=== PATIENT | female | born 1955 | race Caucasian/White ===

== ENCOUNTER 2017-01-30 13:29 | Inpatient (IN) | payer MEDICARE ==
[2017-01-30] VITALS (11 sets, daily range): BP systolic 105–161; BP diastolic 59–96; PULSE 94–105; RESP 13–19; O2SAT 93–99
[~2017-01-30] VITALS: Ht 167.6 cm; Wt 103.8 kg
[~2017-01-30 13:29] MED LIST: OXYC5TAB72 PO
[2017-01-30 13:51] LABS: EOSINOPHILS % (AUTO) 1.7 % (0-5); MONOCYTES % (AUTO) 8.4 % (4-12); Mean Corpuscular Hemoglobin 31.1 pg (27.0-35.0); Mean Corpuscular Volume 93.9 fL (81-100); NEUTROPHILS % (AUTO) 62.6 % (40-74); Platelet Count 255 bil/L (150-400)
--- NOTE | 2017-01-30 13:58 | ED.REPORT ---
HPI-Chest Pain 40 and Over Date of Service Jan 30, 2017 ED Provider: A 61 year old female with a history of non hodgkin's lymphoma, a Rudy filter, multiple PE, bright chronic DVT, coronary artery disease, diabetes, and hyperthyroidism, presents to the ED complaining of SOB and feelings of heaviness onset a couple of days ago, and more severely today at 0600. Associated symptoms include swelling in feet and ankles, and a minor cough onset this morning. She has been off of her prescribed medications for one month , normally having medications for restless legs, chronic pain, high cholesterol , depression, CHF, diabetes, HTN and hyper and low thyroid. She explains that she stopped taking her medications because they caused nausea, and because her insurance changed and she would need to change doctors in order to get her medications. 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 She denies any chills, fever, diaphoresis, or nausea. She lives with her son and granddaughter. Nursing Notes Stated Complaint: CHEST PAIN Chief Complaint: Chest Pain Nursing Notes Reviewed: Yes Allergies: Coded Allergies: terfenadine (Verified Allergy, Mild, 01/30/17) Cephalosporins (Verified Allergy, Unknown, 1st generation, 01/30/17) Penicillins (Verified Allergy, Unknown, 01/30/17) Sulfa (Sulfonamide Antibiotics) (Verified Allergy, Unknown, 01/30/17) erythromycin base (Verified Allergy, Unknown, 01/30/17) ferrous sulfate (Verified Allergy, Unknown, 01/30/17) gabapentin (Verified Allergy, Unknown, 01/30/17) hydrocodone (Verified Allergy, Unknown, 01/30/17) loracarbef (Verified Allergy, Unknown, 01/30/17) loratadine (Verified Allergy, Unknown, 01/30/17) meperidine (Verified Allergy, Unknown, 01/30/17) salsalate (Verified Allergy, Unknown, 01/30/17) shellfish derived (Verified Allergy, Unknown, 01/30/17) Uncoded Allergies: ANTIDEPRESSANTS (Allergy, Unknown, unsure which, 04/09/16) Scheduled PRN oxyCODONE (oxyCODONE) 5 Mg Tablet 10 MG PO Q4H PRN PRN For Pain General Time Seen by MD: 13:58 Chief Complaint Shortness of breath Hx Obtained From: Patient, EMS Arrived By: Ambulance Sudden in Onset?: No Onset Occurred: 9 - 12 hours ago Symptom Duration: Since onset Severity: Current: Moderate Severity: Maximum: Moderate Recent Healthcare: No recent doctor visit Similar Sx Previous: No Past Medical History Past Medical History Dr. Mosqueda is her doctor [phone] non hodgkin's lymphoma multiple PE. coroanry artery disease. 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 Reports: Appendectomy, Cholecystectomy Smoking History Never Smoker Social History Lives with son. Alcohol Use: Denies alcohol use Drug Use: Denies drug use Other Social History: Good social support Ambulatory Status Independent Review of Systems Review of Systems Note: Feelings of heaviness. Sweeling in feet and ankles. Constitutional: Denies: Chills, Fever Respiratory: Reports: Non-productive cough, Shortness of breath GI: Denies: Nausea Skin: Denies Diaphoresis Complete sys rev & neg: except as marked. Physical Exam Initial Vital Signs Vital Signs (First) Date Time Temp Pulse Resp B/P Pulse Ox O2 Delivery O2 Flow Rate FiO2 01/30/17 13:30 102 13 135/72 99 Room Air 01/30/17 13:45 36.6 Initial VS: Reviewed General/Constitutional: Awake, Alert Respiratory / Chest: Atraumatic, Breath sounds NL, Breath sounds = bilat, No respiratory distress, No rales, No rhonchi Cardiovascular: No murmurs Heart Rate / Rhythm: Positive: Tachycardia Abdomen: Atraumatic, Soft, No guarding, No rebound abdomen is benign. Neck: Atraumatic, Full range of motion Back: Atraumatic, Full range of motion Right leg is a little more swollen than left. Skin: Warm, Dry Neurologic: Oriented X3, Speech NL Head / Eyes: Atraumatic, Normocephalic, PERRL, EOMI ENT: Atraumatic, Mucous membranes moist Upper Extremity / MS: Atraumatic, Full range of motion Wrist / Hand: Atraumatic, Full range of motion Interpretation & Diagnostics Lab Results Interpretation Result Diagram: 01/30/17 1347 01/30/17 1347 Test 01/30/17 13:47 White Blood Count 8.2th/mm3 (3.8-10.1) Red Blood Count 3.96mil/mm3 (3.90-5.20) Hemoglobin 12.3g/dL (12.0-15.6) Hematocrit 37.2% (35.0-46.0) Mean Corpuscular Volume 93.9fL (81-100) Mean Corpuscular Hemoglobin 31.1pg (27.0-35.0) Mean Corpuscular Hemoglobin Concent 33.1% (32.0-37.0) Red Cell Distribution Width 13.1% (12.3-15.4) Platelet Count 255bil/L (150-400) Neutrophils (%) (Auto) 62.6% (40-74) Lymphocytes (%) (Auto) 25.7% (14-46) Monocytes (%) (Auto) 8.4% (4-12) Eosinophils (%) (Auto) 1.7% (0-5) Basophils (%) (Auto) 1.0% (0-3) D-Dimer 1.1mg/L (<0.50) Sodium Level 135mEq/L (134-144) Potassium Level 4.3mEq/L (3.5-5.2) Chloride Level 94mEq/L (97-108) Carbon Dioxide Level 21mmol/L (18-29) Blood Urea Nitrogen 26mg/dL (8-27) Creatinine 1.13mg/dL (0.57-1.00) Estimat Glomerular Filtration Rate 70mL/min (>59) Glucose Level 370mg/dL (60-99) Calcium Level 9.9mg/dL (8.5-10.1) Magnesium Level 1.4mg/dL (1.6-2.6) Total Bilirubin 0.3mg/dL (0.0-1.2) Aspartate Amino Transf (AST/SGOT) 14U/L (0-50) Alanine Aminotransferase (ALT/SGPT) 13U/L (0-32) Alkaline Phosphatase 61U/L (25-165) Troponin T < 0.010ug/L (0.0-0.011) Total Protein 7.2g/dL (6.4-8.4) Albumin 4.5g/dL (3.4-5.0) Re-Eval/Medical Decision Med Decision/Clinical Course Patient presented to urgent care with her granddaughter who has an ear infection briefly mention that she was having some chest pressure and was further evaluated. Turns out that she is switching insurance from [employer] to [employer]. We will need to find a new physician. Call to establish care and next appointment is in May. Her medications are making her nauseated and she is not sure which one so she has stopped all of them. At this point she is feeling scared and abandoned by the medical system. More than willing to restart medications we talked about prioritizing in figuring out which ones to add back and in which order. Complicated cardiac history with chemotherapy-induced cardiomyopathy and valvular disease. Records obtained from [facility] cardiology group and will be reviewed. Workup started. In the emergency department began having more chest pain secondary EKG was ordered nitroglycerin ordered. Patient is discussed and reviewed with Dr. Casey. Care will be transferred. Anticipate admission for chest pain, cardiomyopathy likely heart failure acute exacerbation and assistance in restarting medications and getting back into primary care. Time of Eval: 14:55 Patient Status: Condition worsened Re-Evaluation/Progress Note: CP Reapeat EKG and try SL nitro Discharge & Departure Shift Change Sign-Out Patient Care Transferred: Yes Discussed Complaint(s): Yes Laboratory Evaluation: Ordered, not yet done Imaging Studies: Ordered, not yet done ongoing chest pain at time of transfer of care. Primary Impression: Chest pain Referrals: Tracey Burr MD (PCP) Care Transferred to: Dr. Casey Care Transferred at: 15:00 Chris Attestation Portions of this note were transcribed by Liborio Elizalde. I, Dr. Garibay, personally performed the history, physical exam, and medical decision-making: I reviewed and confirmed the accuracy for the information in the transcribed note. Signed by: chris Lee, 01/30/17 [id number]. copies to: Tracey Burr MD, Shawna L MD Jan 30, 2017 13:58 Liborio Elizalde Jan 30, 2017 14:09
[2017-01-30 14:22] LABS: TROPONIN T < 0.010 ug/L (0.0-0.011)
[2017-01-30 14:32] LABS: Magnesium 1.4 mg/dL (1.6-2.6)
[2017-01-30] MEDS ORDERED: Magnesium Sulf 2 Gm/50mL Water 2 GM in IV Premix 1 EACH IV ONE (15:15)
--- NOTE | 2017-01-30 15:22 | ED.REPORT ---
HPI-Chest Pain 40 and Over Date of Service Jan 30, 2017 ED Provider: Kyle Casey MD A 61 year old female with an extensive medical history including RLE DVT, CVA, Non-Hodgkin's lymphoma, CHF, hyperlipidemia, diabetes, hypothyroidism, atrial fibrillation, and PE s/p IVC filter placement presents to the ED from Urgent Care with substernal chest pain onset two days ago, worsening at 0600 this morning. The pain is currently rated 5/10 and described as "heaviness," with radiation to her left side. Associated symptoms include shortness of breath, headache, and bilateral leg swelling (R>L), which is baseline. At Urgent Care the patient was given ASA with no relief. The patient also reports recent weight gain after stopping all of her her medications 3-4 months ago, which she did because they reportedly "made her nauseous." She denies nausea or other symptoms today. The patient was previously on anticoagulants. 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 taking home meds x~3 months due to nausea) Allergies: Coded Allergies: terfenadine (Verified Allergy, Mild, 01/30/17) Cephalosporins (Verified Allergy, Unknown, 1st generation, 01/30/17) Penicillins (Verified Allergy, Unknown, 01/30/17) Sulfa (Sulfonamide Antibiotics) (Verified Allergy, Unknown, 01/30/17) erythromycin base (Verified Allergy, Unknown, 01/30/17) ferrous sulfate (Verified Allergy, Unknown, 01/30/17) gabapentin (Verified Allergy, Unknown, 01/30/17) hydrocodone (Verified Allergy, Unknown, 01/30/17) loracarbef (Verified Allergy, Unknown, 01/30/17) loratadine (Verified Allergy, Unknown, 01/30/17) meperidine (Verified Allergy, Unknown, 01/30/17) salsalate (Verified Allergy, Unknown, 01/30/17) shellfish derived (Verified Allergy, Unknown, 01/30/17) Uncoded Allergies: ANTIDEPRESSANTS (Allergy, Unknown, unsure which, 04/09/16) Scheduled Atorvastatin (Lipitor) 40 Mg Tablet 40 MG PO HS Citalopram (Citalopram) 40 Mg Tablet 40 MG PO DAILY Furosemide (Furosemide) 40 Mg Tablet 40 MG PO QAM Levothyroxine (Levothyroxine) 300 Mcg Tablet 325 MCG PO QAM TAKE 300 MCG TABLET + 25 MCG TABLET (=325 MCG) Lisinopril (Lisinopril) 5 Mg Tablet 5 MG PO DAILY Metformin (Glucophage) 1,000 Mg Tablet 1,000 MG PO BIDWM Metoprolol Succinate ER (Metoprolol Succinate ER) 25 Mg Tab.er.24h 25 MG PO DAILY Potassium Chloride (Potassium Chloride) 10 Meq Capsule.er 10 MEQ PO DAILYWM TAKE WITH FOOD Scheduled PRN Ropinirole (Ropinirole) 0.25 Mg Tablet 0.5 MG PO HS PRN PRN RESTLESS LEG oxyCODONE (oxyCODONE) 5 Mg Tablet 5 MG PO TID PRN PRN For Pain General Time Seen by MD: 14:56 Chief Complaint Chest pain Hx Obtained From: Patient Arrived By: Walk-in Sudden in Onset?: Yes Onset Occurred: 2 days ago (Worsening 0600 this morning) Symptom Duration: Since onset Location: : Substernal Quality: Heaviness, Painful Radiation: : Arm left: Shoulder left Severity: Current: Pain level 5 out of 10 Severity: Maximum: Pain level 5 out of 10 Associated with: Reports: Shortness of Breath, Denies: Fever, Nausea Pertinent Negative: Relieved by nothing Context Related History: Reports: Arrhythmia, Congestive heart failure, Diabetes mellitus, Pulmonary embolism Recent Healthcare: No recent doctor visit Past Medical History Past Medical History Notes: 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 [facility] Echo April 2014, atrial fibrillation, EF of 28%, global hypokinesis with paradoxical septal motion, severe left atrial dilation, status post mitral valve repair, mild to moderate tricuspid regurg-at that time echo had improved EF from 15% Past Medical History ho of RLE DVT and prior pulmonary embolus, details unclear-patient status post an IVC filter as occurred while under treatment for Hodgkin's lymphoma, had been on anticoagulation therapy, but reports quite ectopic workup was negative, and anticoagulation discontinued Non-Hodgkin's lymphoma, subsequent cardiomyopathy History of postoperative atrial fibrillation March 2014, she was prescribed warfarin at last cardiology visit that I can obtain records from which is September 2014 History of acute systolic CHF, diagnosed in 2013 a slight history of severe mitral regurgitation status post valvular repair, ASD with repair Hyperlipidemia 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 Type II diabetes History of hypothyroidism GERD History of gastroparesis diagnosed in 2014 History of vertigo initially history CVA with right-sided symptoms, resolved Reports: Diabetes mellitus, Hyperlipidemia, Hypertension Past Surgical History Mitral valve repair March 2014, with an Calderón Renay annuloplasty band Repair patent foramen ovale March 2014 Hernia repair Left knee replacement oophorectomy Cardiac cath February 2014, no significant coronary disease Reports: Appendectomy, Cholecystectomy Smoking History Never Smoker Social History Alcohol Use: Denies alcohol use Drug Use: Denies drug use Ambulatory Status Independent Review of Systems Review of Systems Note: + Recent weight gain Constitutional: Denies: Fever Respiratory: Reports: Shortness of breath, Denies: Non-productive cough Cardiovascular: Reports: Chest pain (Substernal) GI: Denies: Diarrhea, Nausea, Vomiting Musculoskeletal: Reports: Extremity swelling (Bilateral, baseline) Neurologic: Reports: Headache Complete sys rev & neg: except as marked. Physical Exam Physical Exam Notes: Initial Vital Signs Vital Signs (First) Date Time Temp Pulse Resp B/P Pulse Ox O2 Delivery O2 Flow Rate FiO2 01/30/17 13:30 102 13 135/72 99 Room Air 01/30/17 13:45 36.6 Initial VS: Reviewed, Vital signs abnormal (low-grade tachycardia) Head / Eyes: Atraumatic, Normocephalic ENT: Conjunctiva normal, No scleral icterus Neck: Supple, Full range of motion Neurologic: Alert, Oriented, Nonfocal Psychiatric: Mood/affect normal, Behavior normal, Normal thought content General/Constitutional: Awake, Alert, No acute distress Appearance / Presentation: Positive: Obese (Mild) Appears fatigued Respiratory / Chest: Breath sounds NL, Breath sounds = bilat, No respiratory distress, No rales Cardiovascular: Heart rate NL, Regular rhythm Heart Sounds / Murmur: Positive: Murmur present... (Mechanical) Bilateral lower extremity swelling (R > L), at baseline Abdomen: Soft, Non-tender Obese Skin: Warm, Dry No diaphoresis Interpretation & Diagnostics Lab Results Interpretation Result Diagram: 01/30/17 1347 01/30/17 1347 Test 01/30/17 13:47 White Blood Count 8.2th/mm3 (3.8-10.1) Red Blood Count 3.96mil/mm3 (3.90-5.20) Hemoglobin 12.3g/dL (12.0-15.6) Hematocrit 37.2% (35.0-46.0) Mean Corpuscular Volume 93.9fL (81-100) Mean Corpuscular Hemoglobin 31.1pg (27.0-35.0) Mean Corpuscular Hemoglobin Concent 33.1% (32.0-37.0) Red Cell Distribution Width 13.1% (12.3-15.4) Platelet Count 255bil/L (150-400) Neutrophils (%) (Auto) 62.6% (40-74) Lymphocytes (%) (Auto) 25.7% (14-46) Monocytes (%) (Auto) 8.4% (4-12) Eosinophils (%) (Auto) 1.7% (0-5) Basophils (%) (Auto) 1.0% (0-3) D-Dimer 1.1mg/L (<0.50) Sodium Level 135mEq/L (134-144) Potassium Level 4.3mEq/L (3.5-5.2) Chloride Level 94mEq/L (97-108) Carbon Dioxide Level 21mmol/L (18-29) Blood Urea Nitrogen 26mg/dL (8-27) Creatinine 1.13mg/dL (0.57-1.00) Estimat Glomerular Filtration Rate 70mL/min (>59) Glucose Level 370mg/dL (60-99) Calcium Level 9.9mg/dL (8.5-10.1) Magnesium Level 1.4mg/dL (1.6-2.6) Total Bilirubin 0.3mg/dL (0.0-1.2) Aspartate Amino Transf (AST/SGOT) 14U/L (0-50) Alanine Aminotransferase (ALT/SGPT) 13U/L (0-32) Alkaline Phosphatase 61U/L (25-165) Total Creatine Kinase 101U/L (21-215) Creatine Kinase MB 2.2ng/mL (0.0-5.3) Creatine Kinase MB % % (0.0-5.0) Troponin T < 0.010ug/L (0.0-0.011) Total Protein 7.2g/dL (6.4-8.4) Albumin 4.5g/dL (3.4-5.0) Thyroid Stimulating Hormone (TSH) 76.120uIU/mL (0.450-4.500) Lab Results Interpretation: CBC normal CMP elevated glucose Troponin negative D-dimer elevated Magnesium level low ECG Interpretation ECG Interpretation: EKG from urgent care, and ED today both demonstrate a left bundle branch block with a sinus tachycardia, no prior EKG available for direct comparison. I was able to obtain a written interpretation of an EKG from February 2014 that indicated "a sinus rhythm first degree AV block, intraventricular conduction delay of the left anterior fascicular block, LVH with poor R-wave progression, nonspecific STs segment abnormalities" Time: 15:00 Interpreted by: ED physician X-Ray Chest Interpretation Chest Xray Interpretation: IMPRESSION: No acute cardiopulmonary disease. Dictated by: Yash Yu RRA Interpreted: Hanane Arnold MD on 01/30/2017 at 15:29 Transcribed by: SANDEEP on 01/30/2017 at 15:29 Approved by: Hanane Arnold MD, PhD on 01/30/2017 at 16:30 View: Portable, 1 view Interpretation / Wet Read by: Interpret - Radiologist CT Chest Interpretation IMPRESSION: 1. No acute process. 2. No pulmonary embolus. 3. Left pleural and lower lobe nodules as described above, largest of which measures 10 mm; followup is recommended as below. 4. Right basilar pleural-parenchymal opacity, presumably reflecting scarring secondary to prior infection/inflammation. Recommend attention to this region on followup imaging studies. Fleischner Society criteria for SOLID lung nodule followup. Nodule size (mm)Low-risk patientHigh-risk patient<6 (single or multiple)No routine followup.Optional CT at 12 months. 6-8 (single or multiple)CT at 6-12 months, then optional CT at 18-24 mo.CT at 6-12 months, then CT at 18-24 months. >8 (single)CT, PET-CT, or biopsy at 3 months. Same as for low-risk pts. >8 (multiple)CT at 3-6 months, then optional CT at 18-24 mo.CT at 3-6 months, then CT at 18-24 months. Recommendations do not apply to lung cancer screening, patients with immunosuppression, or patients with known primary cancer. Dictated by: Tobias Mayer M.D. on 01/30/2017 at 16:19 Study type: CT pulm angiogram Interpretation / Wet Read by: Interpret - Radiologist Re-Eval/Medical Decision Med Decision/Clinical Course This is a 61-year-old female initially seen by Dr. Chandler at [facility]-I personally interviewed and examined the patient. I have also reviewed records from [facility] and reviewed those. This is a very complex patient who has a history of non-Hodgkin's lymphoma, previous history of multiple DVTs and PE is weaned to IVC filter placement, who has been also anticoagulated in the past for atrial fibrillation, has a history of valvular disease and is status post a mitral valve repair, who has a severe nonischemic cardiomyopathy with an EF as low at 15%, improved on last echo to the low 20s as at least of 2013, who presents now complaining of chest pain, shortness of breath, fatigue. Of note the patient brings in a large collection of pills and medications-she then indicates that she developed some nausea and attributed to the medicines, so she stopped all of her medicines 3 months ago and has not taken anything. As includes her thyroid medicines, her medicines for diabetes, and her cardiac meds include amiodarone. Furthermore, the patient moved to the area and is trying to establish with a primary care physician, and her insurance is turned change, so she has got a scheduled primary care physician-but the appointment she has been told the soonest they could get her in is May. Patient's had some chest discomfort worsened symptoms past couple days and sent in from urgent care. She does not appear toxic or acutely ill. Lungs are clear, she does have swelling the right leg but states that is chronic. EKG reveals left bundle branch block which is unchanged urgent care, but technically he do not have an old EKG for direct comparison. She is not aware of the term of left bundle-branch block. Labs and only for mild hypomagnesemia, and elevated d-dimer. TSH is elevated secondary to medication noncompliance, and she is hyperglycemic. CT angios was negative clear pathology. Patient received aspirin prior to arrival, received sublingual nitroglycerin resulted in a headache did not resolve the chest discomfort, and the patient was given some Dilaudid with improvement. Overall this complex patient presents with chest pain, has not cardiomyopathy is now not been followed for several years, and in due to medication noncompliance is off multiple medications. Follow-up care is also, given lack of PCP options. In this admission, medication management-I would recommend a repeat echocardiogram for reevaluation given her symptoms. Source of Hx: Old records (obtained from [facility]) Time of Eval: 15:10 Patient Status: Condition unchanged Re-Evaluation/Progress Note: Patient rechecked. Patient was given Nitro at 1500, with no relief at this time. Time of Eval: 16:05 Patient Status: Condition improved Re-Evaluation/Progress Note: Discussed with patient x-ray and ECG results with plan for chest CT. Time of Eval: 17:25 Patient Status: Condition improved Re-Evaluation/Progress Note: Discussed with patient x-ray, CT, and lab results, diagnosis, and plan for admit. Patient agrees with plan for care and all questions were addressed. Consultation : Referral / Consult Name: Franco Sarmiento MD Consulted With: Hospitalist Call Returned at: 16:56 Clearing Supervisor: Agrees with eval, Agrees with plan, Accepts admit Differential Diagnosis: Positive: Chest pain, acute, Negative: Esophageal rupture, Gun shot wound chest, Peptic ulcer disease, Pneumonia, Pulmonary edema, Pulmonary embolism, Stab wound chest Counseled Regarding: Diagnosis, Lab results, Need for admission Discharge & Departure Primary Impression: Chest pain Chest pain type: unspecified Qualified Code: R07.9 - Chest pain, unspecified Additional Impressions: LBBB (left bundle branch block) Noncompliance with medication regimen Cardiomyopathy Hypothyroid Hypothyroidism type: unspecified Qualified Code: E03.9 - Hypothyroidism, unspecified Hypomagnesemia Hyperglycemia Disposition: ADMITTED TO HOSPITAL Discharge Condition All VS Reviewed: Yes Condition: Improved Referrals: Tracey Burr MD (PCP) Scribe Attestation Portions of this note were transcribed by Lara Cagle. I, Dr. Casey, personally performed the history, physical exam, and medical decision-making; I reviewed and confirmed the accuracy of the information in the transcribed note. Signed by: Khalif Pike, 01/30/2017, 18:10 copies to: Tracey Burr MD, Matthew F MD Jan 30, 2017 15:22 LARA CAGLE Jan 30, 2017 15:31
--- NOTE | 2017-01-30 15:30 | DRSVH ---
PROCEDURE: X-RAY CHEST ONE VIEW, PORTABLE ([id number]) INDICATIONS: CHEST PAIN TECHNIQUE: One view of the chest was acquired. COMPARISON: None. FINDINGS: Surgical changes and devices: Median sternotomy wires present and there is proximal sternal wire frac ture. Multiple surgical clips within the neck likely related to thyroidectomy. Lungs and pleura: No pleural effusions or pneumothorax. Lungs are clear. Mediastinum: Mediastinal contours appear normal. Heart size is normal. Bones and chest wall: No suspicious bony lesions. Overlying soft tissues appear unremarkable. IMPRESSION: No acute cardiopulmonary disease. Dictated by: Yash Yu [facility] Interpreted: Hanane Arnold MD on 01/30/2017 at 15:29 Transcribed by: SANDEEP on 01/30/2017 at 15:29 Approved by: Hanane Arnold MD, PhD on 01/30/2017 at 16:30
[2017-01-30] MEDS ORDERED: HYDROmorphone 0.5 mg/0.5 mL iSecure Syringe IVPUSH PRN (16:10)
[2017-01-30] MEDS ORDERED: Ondansetron 2 mg/mL 2 mL Inj IVPUSH ONE (16:10)
--- NOTE | 2017-01-30 16:27 | DRSVH ---
PROCEDURE: CT ANGIO CHEST PULMONARY EMBOLISM ([id number]) INDICATIONS: CP, Dimer +, ho DVT/PE TECHNIQUE: After the administration of intravenous contrast, 2 mm thick sections acquired from the pulmonary api benito to the posterior costophrenic angles. 3-dimensional maximum intensity projection (MIP) coronal a nd sagittal reformats were then acquired through the thorax. For radiation dose reduction, the follo wing was used: automated exposure control, adjustment of mA and/or kV according to patient size. COMPARISON: None. FINDINGS: Image quality: Excellent. Pulmonary arteries: Pulmonary arteries are normal in size, and demonstrate no intraluminal filling d efects to suggest central pulmonary embolism. Lungs and pleura: Pelvis a pneumonia, nor edema. No pleural effusions or pneumothorax. Pleural thicke madeline versus pleural-parenchymal opacity within the right posterior lung base is present, measuring ro ughly 8 mm transverse by 15 mm in thickness. There appear to be scattered calcifications within this opacity. There are a few adjacent nodules within the superior aspect of the left major fissure and ad jacent aspect of the superior segment left lower lobe, largest of which measures 10 mm. Central and p eripheral airways are patent. Mediastinum: Heart size is normal, without pericardial effusion. No mediastinal or hilar adenopathy . Thoracic aorta is normal in caliber and enhancement. Esophagus is normal in caliber, without hiat al hernia. Bones and chest wall: Median sternotomy has been performed. No suspicious bony lesions. Ribs and th oracic spine appear intact throughout. Thyroid gland appears to be surgically absent. No axillary o r supraclavicular adenopathy. Abdomen: Visualized upper abdominal solid organs appear normal in the early arterial phase of enhanc ement. IMPRESSION: 1. No acute process. 2. No pulmonary embolus. 3. Left pleural and lower lobe nodules as described above, largest of which measures 10 mm; followup is recommended as below. 4. Right basilar pleural-parenchymal opacity, presumably reflecting scarring secondary to prior infec tion/inflammation. Recommend attention to this region on followup imaging studies. Fleischner Society criteria for SOLID lung nodule followup. Nodule size (mm)Low-risk patientHigh-risk patient<6 (single or multiple)No routine followup.Optional CT at 12 months. 6-8 (single or multiple)CT at 6-12 months, then optional CT at 18-24 mo.CT at 6-12 [address] [facility], then CT at 18-24 months. >8 (single)CT, PET-CT, or biopsy at 3 months. Same as for low-risk p ts. >8 (multiple)CT at 3-6 months, then optional CT at 18-24 mo.CT at 3-6 months, then CT at 18-24 m onths. Recommendations do not apply to lung cancer screening, patients with immunosuppression, or patients w ith known primary cancer. Dictated by: Tobias Mayer M.D. on 01/30/2017 at 16:19 Approved by: Tobias Mayer M.D. on 01/30/2017 at 16:26
[2017-01-30] MEDS ORDERED: Senna-Docusate 8.6-50 mg Tablet PO PRN (17:00)
[2017-01-30] MEDS ORDERED: Alum-Mag Hydrox-Simeth 30 mL Suspension PO PRN (17:00)
[2017-01-30] MEDS ORDERED: Polyethylene Glycol (PEG) 17 Gm Powder PO PRN (17:00)
[2017-01-30] MEDS ORDERED: Atropine 1 mg/10 mL (Code) Syringe IVPUSH PRN (17:00)
[2017-01-30] MEDS ORDERED: ROPI0.252 PO (17:22)
[2017-01-30] MEDS ORDERED: LEVO300T5 PO (17:22)
[2017-01-30] MEDS ORDERED: METF1000 PO (17:23)
[2017-01-30] MEDS ORDERED: LIP40 PO (17:24)
[2017-01-30] MEDS ORDERED: CITA40TA13 PO (17:29)
[2017-01-30] MEDS ORDERED: LISI-571 PO (17:29)
[2017-01-30] MEDS ORDERED: METO25TA99 PO (17:29)
[2017-01-30] MEDS ORDERED: FURO40TA4 PO (17:32)
[2017-01-30] MEDS ORDERED: POTA10CA42 PO (17:32)
[2017-01-30 17:35] LABS: Creatine Kinase 101 U/L (21-215)
[2017-01-30] MEDS: 0.9% Sodium Chloride 1,000 ML IV SCH (18:00)
--- NOTE | 2017-01-30 19:00 | NUR ---
ADMIT Pt brought up to floor via gurney. Report received from Abbi Hogan RN in ED. Pt able to stand and transfer to bed. VSS, reports no CP at this time. Pt oriented to unit, room, call light. Belongings placed in closet, meds taken home with family. Admit interventions completed by next shift.
[2017-01-30] MEDS ORDERED: Glucose 40% Oral Gel 15 Gm Tube PO PRN (20:50)
[2017-01-30] MEDS: Insulin LISPRO 300 Unit/3 mL Inj SUBQ SCH (21:45)
--- NOTE | 2017-01-30 22:06 | PCM.HPMED ---
Subjective Date of Service Jan 30, 2017 Primary Provider: Admitting Physician: Primary Care Physician: Tracey Burr MD Attending Physician: Admit Status: From the Emergency Department, 23-Hour Observation, Remote Telemetry Chief Complaint: Shortness of breathe with chest pressure History of Present Illness: Trina Brothers is a 61 year old female with Non hodgkin's lymphoma, a Rudy filter placed due to multiple PE, coronary artery disease, diabetes , and hyperthyroidism, presents to the [facility] emergency department complaining of shortness of breathe and feelings of chest heaviness onset a couple of days ago The substernal chest pain onset two days ago, worsening at 0600 this morning. The pain is rated 5/10 and described as "heaviness," with radiation to her left side. Associated symptoms include shortness of breath, headache, and bilateral leg swelling. Symptom is aggravated by mild activity (eg. walking) and supine position. Denies relieving factors. The patient also reports recent weight gain after stopping all of her medications about 4 months ago because they "made her nauseous." She also had her insurance changed and she can no longer see her PCP. Patient has non hodgkins with cardiomyopathy, valve replacement Case discussed with Dr Casey. Troponin negative but given her extensive cardiac history and comorbidity she will be admitted for a MA rule out workup Review of Systems: Pertinent positives as noted in HPI. All other systems were reviewed and are negative Allergies Coded Allergies: terfenadine (Verified Allergy, Mild, 01/30/17) Cephalosporins (Verified Allergy, Unknown, 1st generation, 01/30/17) Penicillins (Verified Allergy, Unknown, 01/30/17) Sulfa (Sulfonamide Antibiotics) (Verified Allergy, Unknown, 01/30/17) erythromycin base (Verified Allergy, Unknown, 01/30/17) ferrous sulfate (Verified Allergy, Unknown, 01/30/17) gabapentin (Verified Allergy, Unknown, 01/30/17) hydrocodone (Verified Allergy, Unknown, 01/30/17) loracarbef (Verified Allergy, Unknown, 01/30/17) loratadine (Verified Allergy, Unknown, 01/30/17) meperidine (Verified Allergy, Unknown, 01/30/17) salsalate (Verified Allergy, Unknown, 01/30/17) shellfish derived (Verified Allergy, Unknown, 01/30/17) Uncoded Allergies: ANTIDEPRESSANTS (Allergy, Unknown, unsure which, 04/09/16) Home Medications From patient list Atorvastatin 40 mg HS Lisinopril 5 mg daily Metoprolol 25 mg daily Citalopram 40 mg daily Ropinirole 0.5 mg HS PRN Oxycodone 5 mg tid PRN Lasix 40 mg daily Levothyroxine 325 mcg daily Metformin 1000 mg bid PMH ho of RLE DVT and prior pulmonary embolus status post an IVC filter Non-Hodgkin's lymphoma, subsequent cardiomyopathy History of postoperative atrial fibrillation March 2014, she was prescribed warfarin History of acute systolic CHF, diagnosed in 2013 severe mitral regurgitation status post valvular repair, ASD with repair Hyperlipidemia 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 Surgical History Mitral valve repair March 2014, with an Calderón Renay annuloplasty band Repair patent foramen ovale March 2014 Hernia repair Left knee replacement oophorectomy Cardiac cath February 2014, no significant coronary disease Reports: Appendectomy, Cholecystectomy Family History Patient does not know her biological father Mother had MA Social History Hx Alcohol Use: No Hx Substance Use: No Hx Tobacco Use: No Smoking Status: Never Smoker Living Arrangement: with Family Exam Vital Signs Vital Sign - Last Date Time Temp Pulse Resp B/P Pulse Ox O2 Delivery O2 Flow Rate FiO2 01/30/17 15:30 105 19 105/59 96 01/30/17 15:00 Room Air 01/30/17 13:45 36.6 Exam General: Alert, Oriented X3, Cooperative, No acute Distress Eyes: PERRLA, Scleral Anicteric Mouth: Mouth Normal, Mucous Membranes Moist/[place] Neck: Supple, no Thyromegaly, trachea central. Chest & Lungs: Clear to auscultation & percussion, No adventitious breath sounds, no crackles, no wheeze Cardiovascular: Normal S1, Normal S2, No Murmurs/Rubs/Gallops, Regular Rate/ Rhythm, (No JVD, no peripheral edema) Pulses: Radial (present and equal), Dorsalis Pedi (present and equal) Abdomen: Soft, Non-tender, Non-distended, Normoactive bowel tones. Musculoskeletal: Unremarkable. Normal range of motion, no swollen or erythematous joints Extremities: No edema, no cyanosis, no clubbing. Skin: No rashes. Warm and dry, no erythematous areas Neurological: Grossly neurologically intact, Normal Speech, Sensation Intact Lymphatic: Lymph nodes Cervical and Axillary not palpable. Lab and Diagnostics Labs Laboratory Tests Test 01/30/17 13:47 White Blood Count 8.2th/mm3 (3.8-10.1) Red Blood Count 3.96mil/mm3 (3.90-5.20) Hemoglobin 12.3g/dL (12.0-15.6) Hematocrit 37.2% (35.0-46.0) Mean Corpuscular Volume 93.9fL (81-100) Mean Corpuscular Hemoglobin 31.1pg (27.0-35.0) Mean Corpuscular Hemoglobin Concent 33.1% (32.0-37.0) Red Cell Distribution Width 13.1% (12.3-15.4) Platelet Count 255bil/L (150-400) Neutrophils (%) (Auto) 62.6% (40-74) Lymphocytes (%) (Auto) 25.7% (14-46) Monocytes (%) (Auto) 8.4% (4-12) Eosinophils (%) (Auto) 1.7% (0-5) Basophils (%) (Auto) 1.0% (0-3) D-Dimer 1.1mg/L (<0.50) Sodium Level 135mEq/L (134-144) Potassium Level 4.3mEq/L (3.5-5.2) Chloride Level 94mEq/L (97-108) Carbon Dioxide Level 21mmol/L (18-29) Blood Urea Nitrogen 26mg/dL (8-27) Creatinine 1.13mg/dL (0.57-1.00) Estimat Glomerular Filtration Rate 70mL/min (>59) Glucose Level 370mg/dL (60-99) Calcium Level 9.9mg/dL (8.5-10.1) Magnesium Level 1.4mg/dL (1.6-2.6) Total Bilirubin 0.3mg/dL (0.0-1.2) Aspartate Amino Transf (AST/SGOT) 14U/L (0-50) Alanine Aminotransferase (ALT/SGPT) 13U/L (0-32) Alkaline Phosphatase 61U/L (25-165) Troponin T < 0.010ug/L (0.0-0.011) Total Protein 7.2g/dL (6.4-8.4) Albumin 4.5g/dL (3.4-5.0) Result Diagram: 01/30/17 1347 01/30/17 1347 X-Rays, CTs and MRIs X-RAY CHEST ONE VIEW, PORTABLE 01/30/17 IMPRESSION: No acute cardiopulmonary disease. Dictated by: Yash Yu RRA Interpreted: Hanane Arnold MD on 01/30/2017 at 15:29 Transcribed by: SANDEEP on 01/30/2017 at 15:29 Approved by: Hanane Arnold MD, PhD on 01/30/2017 at 16:30 CT ANGIO CHEST PULMONARY EMBOLISM 01/30/17 IMPRESSION: 1. No acute process. 2. No pulmonary embolus. 3. Left pleural and lower lobe nodules as described above, largest of which measures 10 mm; followup is recommended as below. 4. Right basilar pleural-parenchymal opacity, presumably reflecting scarring secondary to prior infection/inflammation. Recommend attention to this region on followup imaging studies. Fleischner Society criteria for SOLID lung nodule followup. Nodule size (mm)Low-risk patientHigh-risk patient<6 (single or multiple)No routine followup.Optional CT at 12 months. 6-8 (single or multiple)CT at 6-12 months, then optional CT at 18-24 mo.CT at 6-12 months, then CT at 18-24 months. >8 (single)CT, PET-CT, or biopsy at 3 months. Same as for low-risk pts. >8 (multiple)CT at 3-6 months, then optional CT at 18-24 mo.CT at 3-6 months, then CT at 18-24 months. Recommendations do not apply to lung cancer screening, patients with immunosuppression, or patients with known primary cancer. Dictated by: Tobias Mayer M.D. on 01/30/2017 at 16:19 Approved by: Tobias Mayer M.D. on 01/30/2017 at 16:26 Assessment & Plan Trina Brothers is a 61 year old female with Non hodgkin's lymphoma, a [place] filter placed due to multiple PE, coronary artery disease, diabetes , and hyperthyroidism, presents to the [facility] emergency department complaining of shortness of breathe and feelings of chest heaviness 1. Acute Chest pain. Present on admission Etiology unclear. Several risk factors for Acute coronary syndrome. Pulmonary embolism ruled out with normal CT chest. - trending cardiac biomarkers overnight - complete echo for tomorrow - Lexiscan test tomorrow, abnormal EKG difficult to do a exercise stress 2. Acute Kidney injury. Present on admission Likely pre renal azotemia due to hypovolemia - avoid nephrotoxic insults although I feel its safe to continue Lisinopril for now - monitor urine output 3. Diabetes type 2 Poor control due to non compliance with Metformin - hold Metformin for now - medium Lispro correction algorithm - checking A1c 4. Hypothyroidism TSH elevated due to non compliance with medications - resume Synthroid - repeat TSH in 4-6 weeks 5. Chronic systolic heart failure. Chronic NO evidence of decompensation - resume diuretics - continue CONRAD inhibitor 7. Severe mitral regurgitation status post valvular repair, ASD with repair. No clinical evidence of fluid overload - complete echo tomorrow 8. Non Hodgkin Lymphoma s/p stem cell transplant presumed stable at this time - follow up with Oncology for surveillance - Acetaminophen as needed for mild pain/fever/headache - Bowel regimen as needed - Antiemetic as needed Patient is admitted under observation status with expected length of stay less than 2 midnights due to severity of presenting symptoms, risk of adverse event, and complexity of treatment plan. . Resuscitation Status: CPR: Attempt Resuscitation Franco Sarmiento MD Jan 30, 2017 17:01
[2017-01-30 23:55] LABS: Creatine Kinase 78 U/L (21-215)
[2017-01-31] MEDS: Heparin 5,000 Unit/mL Inj SUBQ SCH ×3 (00:32→17:02)
[2017-01-31] MEDS: Sodium Chloride LOK Flush 10 mL Syringe IVFLUSH SCH ×3 (00:33→16:30)
[2017-01-31 01:21] VITALS: BP 124/84; PULSE 93; RESP 20; O2SAT 95
--- NOTE | 2017-01-31 01:52 | NUR ---
Chest Pain 0140 pt had an episode of chest pain/tightness 07/06. NTG administered SL, and roxicodone for headache, MD was notified and ordered 12 leads + Trop. No significant change in EKG and Monitor rico reports no change in rhythm. Pt states that the chest tightness is wearing off.
[2017-01-31] MEDS: Ondansetron 2 mg/mL 2 mL Inj IVPUSH PRN ×3 (02:11→10:18)
[2017-01-31 05:24] VITALS: BP 113/78; PULSE 90; RESP 20; O2SAT 96
[2017-01-31] MEDS: 0.9% Sodium Chloride 1,000 ML IV SCH ×2 (05:26→17:56)
[2017-01-31 06:12] LABS: EOSINOPHILS % (AUTO) 1.8 % (0-5); MONOCYTES % (AUTO) 7.2 % (4-12); Mean Corpuscular Hemoglobin 30.7 pg (27.0-35.0); Mean Corpuscular Volume 95.8 fL (81-100); NEUTROPHILS % (AUTO) 72.7 % (40-74); Platelet Count 210 bil/L (150-400)
[2017-01-31 07:54] LABS: TROPONIN T < 0.010 ug/L (0.0-0.011)
[2017-01-31] MEDS: Insulin LISPRO 300 Unit/3 mL Inj SUBQ SCH ×3 (08:09→17:03)
--- NOTE | 2017-01-31 10:32 | NUR ---
Nausea Pt reported Nausea with dry heaving. Medicated with 4mg Zofran. Nausea continues. Administered another dose of 4mg Zofran. Pt reports some relief but still feels nauseous. Pt relates this was a reason she stopped taking her medications "makes me feel sick/nauseous." paged to update.
[2017-01-31 10:44] VITALS: PULSE 100
--- NOTE | 2017-01-31 11:02 | NUR ---
Social Work-initial assessment: Data:See initial assessment. Pt is a 61 y/o female who was admitted on 01/30/17 for chest pain per H&P. Pt's insurance is [facility] and PCP is Tracey Burr MD. EMR reviewed. KAILA met with pt at bedside to discuss discharge planning, SW role explained. Pt is alert and oriented x3. Pt resides at home with her son Tra and granddaughter where she remains independent with ADls. Pt does not use any DME and drives. Pt has had HH, but it was a very long time ago and has no SNF history. Pt has no [facility] care insurance or VA benefits. SW discussed DPOA/ advanced directive, pt confirms that she has completed this, SW encouraged a copy to be brought into the hospital. Pt has been up independent in her room per RN notes. Pt states she does not currently have a PCP and is interested in the residency clinic. KAILA asked UR specialist Brandon to make an appointment for pt at Residency clinic. Pt's son to provide transport home at discharge. KAILA provided phone number and plan on white board in room. No anticipated discharge needs. SW will continue to follow if needs arise. Assessment:Pt who is independent at baseline. Plan:Pt to discharge home when medically stable via POV.UR specialist to set up PCP appointment for pt. No anticipated discharge needs. SW will continue to follow if needs arise. PAKO Cosme Addendum: 01/31/17 at 1132 by PANCHITO STEELE SS Amended: Links added.
[2017-01-31] MEDS: MetoCLOpramide 5 mg/mL 2 mL Inj IVPUSH PRN (12:05)
--- NOTE | 2017-01-31 12:17 | NUR ---
Social Work updated by UR specialist that residency clinic appointment has been made for Tuesday 02/[address] Perez. SW provided this information to pt and she is agreeable. PAKO Cosme
--- NOTE | 2017-01-31 12:45 | NUR ---
PT off floor for Stress Test Taken Via WC, no s/sx of distress. Tele removed/notified. Addendum: 01/31/17 at 1537 by EMMA PEÑA RN Pt back on floor from Stress Test Reports no pain, no nausea. Tele monitoring back in place.
--- NOTE | 2017-01-31 14:37 | PCM.PNMED ---
Subjective Date of Service Jan 31, 2017 Subjective complains of ongoing nausea and headache. denies any chest pain at this time. Exam Vital Signs Vital Sign - Last Date Time Temp Pulse Resp B/P Pulse Ox O2 Delivery O2 Flow Rate FiO2 01/31/17 10:44 100 01/31/17 08:45 Supplement Oxygen 01/31/17 05:24 36.2 20 113/78 96 Intake and Output 01/30/17 01/30/17 01/31/17 Cumulative From/Thru 15:00 23:00 07:00 01/30/17 13:45 - 01/31/17 06:24 Intake Total 240 ml 240 ml Balance 240 ml 240 ml Intake Oral 240 ml 240 ml # Voids 2 2 # Bowel Movements 0 0 General: Alert, Cooperative, No Acute Distress Head: Normal Eyes: Scleral Anicteric Nose: Mucous Membr Moist/[place] Mouth: Mucous Membr Moist/[place] Neck: Supple Chest & Lungs: Chest Wall Normal, Clear to auscultation & percussion Cardiovascular: Regular Rate/Rhythm Abdomen: Non-tender, Non-distended, Normoactive bowel tones, Soft Extremities: No cyanosis/clubbing/edma bilat Neurological: Grossly Neurologically Intact, Normal Speech IVs and Medications Medications Reviewed: Medications were reviewed in detail Lab and Diagnostics Result Diagram: 01/31/17 0536 01/31/17 0536 X-Rays, CTs and MRIs X-RAY CHEST ONE VIEW, PORTABLE 01/30/17 IMPRESSION: No acute cardiopulmonary disease. Dictated by: Yash Yu [facility] Interpreted: Hanane Arnold MD on 01/30/2017 at 15:29 Transcribed by: SANDEEP on 01/30/2017 at 15:29 Approved by: Hanane Arnold MD, PhD on 01/30/2017 at 16:30 CT ANGIO CHEST PULMONARY EMBOLISM 01/30/17 IMPRESSION: 1. No acute process. 2. No pulmonary embolus. 3. Left pleural and lower lobe nodules as described above, largest of which measures 10 mm; followup is recommended as below. 4. Right basilar pleural-parenchymal opacity, presumably reflecting scarring secondary to prior infection/inflammation. Recommend attention to this region on followup imaging studies. Fleischner Society criteria for SOLID lung nodule followup. Nodule size (mm)Low-risk patientHigh-risk patient<6 (single or multiple)No routine followup.Optional CT at 12 months. 6-8 (single or multiple)CT at 6-12 months, then optional CT at 18-24 mo.CT at 6-12 months, then CT at 18-24 months. >8 (single)CT, PET-CT, or biopsy at 3 months. Same as for low-risk pts. >8 (multiple)CT at 3-6 months, then optional CT at 18-24 mo.CT at 3-6 months, then CT at 18-24 months. Recommendations do not apply to lung cancer screening, patients with immunosuppression, or patients with known primary cancer. Dictated by: Tobias Mayer M.D. on 01/30/2017 at 16:19 Approved by: Tobias Mayer M.D. on 01/30/2017 at 16:26 Assessment & Plan 61 year old female with Non hodgkin's lymphoma, a Nerinx filter placed due to multiple PE, coronary artery disease, diabetes, and hyperthyroidism, presents to the [facility] emergency department complaining of shortness of breathe and feelings of chest heaviness 1. Acute Chest pain. Present on admission - Acute coronary syndrome ruled out with negative Trop - Pulmonary embolism ruled out with normal CT chest. - f/u with pending Echo - f/u pending Lexiscan stress test 2. Acute Kidney injury. Present on admission Likely pre renal azotemia due to hypovolemia - avoid nephrotoxic meds - monitor urine output 3. Diabetes type 2 Poor control due to non compliance with Metformin - hold Metformin for now - medium Lispro correction algorithm - HgA1C 11 4. Hypothyroidism TSH elevated due to non compliance with medications - c/w Synthroid - repeat TSH in 4-6 weeks 5. Chronic systolic heart failure. Chronic NO evidence of decompensation - c/w diuretics - continue CONRAD inhibitor 7. Severe mitral regurgitation status post valvular repair, ASD with repair. No clinical evidence of fluid overload - f/u pending Echo 8. Non Hodgkin Lymphoma s/p stem cell transplant presumed stable at this time - follow up with Oncology for surveillance 9. Acute hypomagnesemia. present on admission - f/u repeat lab today 10. Ongoing nausea. poa. - unclear etiology. ? cardiac vs other etiology - c/w supportive care Dispo: today vs tomorrow pending above workup and improved symptoms VTE Mechanical Devices: Intermittant Pneumatic CD Resuscitation Status: CPR: Attempt Resuscitation Zaid Hoyt Jan 31, 2017 14:37
[2017-01-31 15:51] VITALS: BP 128/82; PULSE 107; RESP 18; O2SAT 95
--- NOTE | 2017-01-31 16:09 | NUR ---
Case Management: Unable to provide FRANCO, pt having an Echo currently. Will try again later. Claudia Leblanc RN Addendum: 01/31/17 at 1946 by CLAUDIA LEBLANC CM FRANCO explained to patient at 1720, all questions answered. Signed original placed in chart, copy given to patient. Claudia Leblanc RN
[2017-01-31] MEDS: MeTOProlol XL 25 mg ER24 Tablet PO SCH (17:02)
--- NOTE | 2017-01-31 17:30 | DRSVH ---
PROCEDURE: ONE DAY PHARMACOLOGICAL STRESS TEST INDICATIONS: This is a 61-year-old female with a prior history of pulmonary emboli, coronary artery disease and diabetes, who presented to [facility] with symptoms of chest discomfort. Nuc lear cardiac stress study was done to exclude significant recurrent ischemic heart disease. STRESS TEST: This patient underwent a Lexiscan pharmacologic stress study. She had a moderately hyp otensive response to the Lexiscan injection with improvement following intravenous aminophylline. Ba seline 12-lead EKG shows a nonspecific intraventricular conduction delay with a left axis deviation a nd normal sinus rhythm. The patient had no symptoms of angina-like chest discomfort and no diagnosti c EKG changes of ischemia. PROCEDURE: This patient received 10.7 mCi of technetium-99 tetrofosmin for the resting portion of th e examination. She received 25.8 mCi for the stress portion of the examination. FINDINGS: Raw Data: Raw data images demonstrate overall good image quality. No significant source of artifact or interference is noted. Quantitative Gated SPECT Imaging: Gated images demonstrate a mildly increased left ventricular end d iastolic volume of 132 cc. Overall contractility is reduced with an estimated ejection fraction of 3 5%. There is evidence of significant hypokinesis involving the interventricular septum and the infer ior and posterior nolan. There does not appear to be a significant difference between the gated imag es following stress and those at rest. Quantitative Perfusion SPECT Imaging: Both stress and rest myocardial perfusion images have a simila r perfusion pattern showing moderately reduced perfusion involving the anterior and inferior septum. There is also a moderately large area of posterior and posterolateral hypoperfusion, which is unchan ged between stress and rest perfusion images. IMPRESSION: Abnormal nuclear cardiac stress study: A. Normal pharmacologic response to Lexiscan without chest pain or diagnostic electrocardiographic c hanges. B. Mildly dilated left ventricle with moderately severe left ventricular systolic dysfunction with s evere hypokinesis involving the septum and inferior wall. C. Moderate hypoperfusion involving the interventricular septum, which may be consistent with the pa tient's interventricular conduction delay. There appears to be a region of fixed, moderately severe hypoperfusion involving the inferior wall, consistent with probably a nontransmural infarction. I do not see any evidence of a reversible perfusion abnormality that would suggest ischemia. Clinical co rrelation suggested. Dictated by: Sp Price M.D. on 01/31/2017 at 16:32 Transcribed by: MIRIAM on 01/31/2017 at 20:29 Approved by: Sp Price M.D. on 02/05/2017 at 12:43
--- NOTE | 2017-01-31 17:39 | DRSVH ---
[facility] [address] [place] [address] Echocardiogram Report Name: MARZENA SANTOS Study Date: 01/31/2017 Height: 66 in Hospital Exam Location: [facility] Weight: 229 lb Gender: Female BSA: 2.1 m2 : 1955 Age: 61 yrs BP: 113/78 mmHg Reason For Study: CHEST PAIN Ordering Physician: HOSPITALIST MELIerformed By: Srikanth Cheek Referring Physician: Victoriano BAR Interpretation Summary 1) Mildly dilated left ventricle with normal thickness and severely reduced systolic function (EF 25-30%). 2) Global hypokinesis that is significantly worse in the inferior wall and the septum. 3) Normal right ventricular size with mildly reduced function. 4) Posterior leaflet of the mitral valve is fixed. Mild mitral regurgitation present. 5) Mild to moderate tricuspid regurgitation. 6) Normal pulmonary artery pressures. 7) No prior Echo available for comparison. Findings are suggestive of ischemic cardiomyopathy. Procedure: A two-dimensional transthoracic echocardiogram with color flow and Doppler was performed. The study quality was technically adequate. There is no prior echocardiogram noted for this patient. The subcostal views were difficult to obtain and are suboptimal in quality. The patient was in normal sinus rhythm during the exam. Left Ventricle: There is normal left ventricular wall thickness. The left ventricle is mildly dilated. The ejection fraction is estimated to be 25-30%. Left ventricular systolic function is severely reduced. Global hypokinesis that is significantly worse in the inferior wall and the septum. Right Ventricle: The right ventricle is normal size. Right ventricular systolic function is mildly reduced. Atria: The left atrium is severely dilated. Right atrial size is normal. The interatrial septum is intact with no evidence for an atrial septal defect. Mitral Valve: posterior leaflet is fixed. There is mild mitral regurgitation. Aortic Valve: The aortic valve is normal in structure and function. The aortic valve is trileaflet. The aortic valve opens well. There is no aortic valve stenosis. No aortic regurgitation is present. Tricuspid Valve: The tricuspid valve is normal in structure and function. There is mild to moderate tricuspid regurgitation. Right ventricular systolic pressure is estimated to be 27 mmHg plus the clinically estimated CVP which cannot be estimated on this exam. Pulmonic Valve: The pulmonic valve is normal in structure and function. There is trace pulmonic regurgitation. Great Vessels: The aortic root is normal size. The dimensions of the ascending aorta are normal. The pulmonary artery is normal size. The inferior vena cava was not well visualized. Pericardium/ Pleura There is no pericardial effusion. There is no pleural effusion. MMode/2D Measurements & Calculations LVIDd: 5.8 cm LA dimension: 4.6 cm RA long axis: 4.4 cm Ao root diam LVIDs: 5.2 cm FS: 10.4 % LA A2 area: 29.6 cm RA area: 12.4 cm Aortic Jxn EPSS: 1.4 cm LA A4 area: 31.1 cm RA vol: 29.6 ml IVSd: 0.91 cm LA length (vol): 6.8 cm RA : 14.0 ml/m2 asc Aorta LVPWd: 0.93 cm LA vol: 114.8 ml Diam: 3.3 cm LA vol index: 54.2 ml/m2 EDV(MOD-sp2) LV black. diameter/BSA LV sys. diameter/BSA : 110.5 ml (cm/m^2): 2.7 (cm/m^2): 2.4 Doppler Measurements & Calculations Ao V2 max MV E max sunil MV E/A: 88.6 TR max sunil : 158.1 cm/sec : 151.0 cm/sec Med Peak E' Sunil : 259.4 cm/sec Ao max PG MV A max sunil TR max PG : 10.0 mmHg : 1.7 cm/sec E/E' med: 14.2 : 26.9 mmHg Ao mean PG PA V2 max : 6.4 mmHg : 84.8 cm/sec PA mean PG PA Accel Time : 0.07 sec MV V2 mean Ao V2 mean PA V2 mean : 97.3 cm/sec : 122.8 cm/sec : 61.1 cm/sec MV mean PG Ao V2 VTI: 26.6 cm PA pr(Accel) : 47.4 mmHg MV V2 VTI: 22.3 cm MV dec time : 0.18 sec Reading Physician:05:37 PM
[2017-01-31 20:45] VITALS: BP 118/74; PULSE 89; RESP 18; O2SAT 97
[2017-01-31] MEDS: Insulin LISPRO High-Dose Scale SUBQ PRN (22:10)
[2017-02-01] VITALS (8 sets, daily range): BP systolic 101–132; BP diastolic 59–72; PULSE 85–92; RESP 16–18; O2SAT 90–93
[2017-02-01] MEDS: Sodium Chloride LOK Flush 10 mL Syringe IVFLUSH SCH ×3 (00:30→16:18)
[2017-02-01] MEDS: Heparin 5,000 Unit/mL Inj SUBQ SCH ×3 (01:02→16:18)
[2017-02-01 04:08] LABS: Free Thyroxine Index 0.3 (1.2-4.9); Thyroxine (T4) 1.4 ug/dL (4.5-12.0)
[2017-02-01] MEDS: 0.9% Sodium Chloride 1,000 ML IV SCH ×2 (05:31→19:36)
--- NOTE | 2017-02-01 06:09 | NUR ---
Anxiety / Wheezing reporting moderate to severe anxiety and depression. Am Celexa po daily for depression but no current anti-anxiety medications on emar. Later in the shift pt began wheezing and c/o headache 04/05, RT called for assessment, verified no LE edema and wheezing sounds originating in upper chest only. Fluid were stopped for off floor stress test and review of eMAR indicates last NS administered was 30 hours prior. Raised HOB to 70 degrees and cough and deep breath x5 wheeze cleared up. Administered 2mg IV Morphine for headache and anxiety reduced significantly with pt indicating: "when I feel SOB I am very anxious". Sinus congestion likely the cause of upper respiratory wheezing and notified MD of request for decongestant but will pass on to day shift to complete medication request.
[2017-02-01] MEDS: Ondansetron 2 mg/mL 2 mL Inj IVPUSH PRN (07:47)
[2017-02-01 08:35] LABS: Mean Corpuscular Hemoglobin 30.9 pg (27.0-35.0); Mean Corpuscular Volume 96.3 fL (81-100)
[2017-02-01] MEDS: MeTOProlol XL 25 mg ER24 Tablet PO SCH (08:50)
[2017-02-01] MEDS: Insulin LISPRO High-Dose Scale SUBQ PRN ×3 (08:52→21:55)
[2017-02-01 08:55] LABS: Magnesium 1.5 mg/dL (1.6-2.6)
--- NOTE | 2017-02-01 10:40 | NUR ---
Social Work-readiness for discharge: Data:EMR reviewed. Pt is on day 2 of hospitalization for chest pain per H&P. Pt is not medically stable anticipate later today or tomorrow. Per RN notes, pt has been up independent in her room. Pt has residency clinic appointment for Tuesday 02/[address] Perez. Pt has been updated and is agreeable. Pt's family to provide transport home at discharge. No anticipated discharge needs. SW will continue to follow if needs arise. Assessment:Pt who is independent at baseline. Plan:Pt to discharge home when medically stable via POV. No anticipated discharge needs. SW will continue to follow if needs arise. PAKO Cosme
[2017-02-01] MEDS: MetoCLOpramide 5 mg/mL 2 mL Inj IVPUSH PRN (13:43)
--- NOTE | 2017-02-01 14:41 | PCM.PNMED ---
Subjective Date of Service Feb 01, 2017 Subjective denies any chest pain at this time. Exam Vital Signs Vital Sign - Last Date Time Temp Pulse Resp B/P Pulse Ox O2 Delivery O2 Flow Rate FiO2 02/01/17 13:39 37.7 87 16 132/70 93 Nasal Cannula 02/01/17 05:48 5.00 Intake and Output 01/31/17 01/31/17 02/01/17 Cumulative From/Thru 15:00 23:00 07:00 01/30/17 13:45 - 02/01/17 06:28 Intake Total 400 ml 420 ml 1060 ml Balance 400 ml 420 ml 1060 ml Intake Oral 400 ml 420 ml 1060 ml # Voids 3 5 10 # Bowel Movements 0 0 Exam General: Alert, Cooperative, No Acute Distress Head: Normal Eyes: Scleral Anicteric Nose: Mucous Membr Moist/Kathryn Mouth: Mucous Membr Moist/Kathryn Neck: Supple Chest & Lungs: Chest Wall Normal, Clear to auscultation bilat Cardiovascular: Regular Rate/Rhythm Abdomen: Non-tender, Non-distended, Normoactive bowel tones, Soft Extremities: No cyanosis/clubbing/edema bilat Neurological: Grossly Neurologically Intact, Normal Speech IVs and Medications Medications Reviewed: Medications were reviewed in detail Lab and Diagnostics Result Diagram: 02/01/1781402/01/17814 X-Rays, CTs and MRIs X-RAY CHEST ONE VIEW, PORTABLE 01/30/17 IMPRESSION: No acute cardiopulmonary disease. Dictated by: Yash Yu [facility] Interpreted: Hanane Arnold MD on 01/30/2017 at 15:29 Transcribed by: SANDEEP on 01/30/2017 at 15:29 Approved by: Hanane Arnold MD, PhD on 01/30/2017 at 16:30 CT ANGIO CHEST PULMONARY EMBOLISM 01/30/17 IMPRESSION: 1. No acute process. 2. No pulmonary embolus. 3. Left pleural and lower lobe nodules as described above, largest of which measures 10 mm; followup is recommended as below. 4. Right basilar pleural-parenchymal opacity, presumably reflecting scarring secondary to prior infection/inflammation. Recommend attention to this region on followup imaging studies. Fleischner Society criteria for SOLID lung nodule followup. Nodule size (mm)Low-risk patientHigh-risk patient<6 (single or multiple)No routine followup.Optional CT at 12 months. 6-8 (single or multiple)CT at 6-12 months, then optional CT at 18-24 mo.CT at 6-12 months, then CT at 18-24 months. >8 (single)CT, PET-CT, or biopsy at 3 months. Same as for low-risk pts. >8 (multiple)CT at 3-6 months, then optional CT at 18-24 mo.CT at 3-6 months, then CT at 18-24 months. Recommendations do not apply to lung cancer screening, patients with immunosuppression, or patients with known primary cancer. Dictated by: Tobias Mayer M.D. on 01/30/2017 at 16:19 Approved by: Tobias Mayer M.D. on 01/30/2017 at 16:26 Assessment & Plan 61 year old female with Non hodgkin's lymphoma, a [place] filter placed due to multiple PE, coronary artery disease post CABG, diabetes, and hyperthyroidism, presents to [facility] emergency department complaining of shortness of breathe and feelings of chest heaviness 1. Acute Chest pain. Present on admission - Acute coronary syndrome ruled out with negative Trop - Pulmonary embolism ruled out with normal CT chest. - Echo 01/31/17: EF 25-30% and "Global hypokinesis that is significantly worse in the inferior wall and the septum" - Abnormal nuclear cardiac stress study on 01/31/17 - cardiology consulted. awaiting further recs 2. Acute Kidney injury. Present on admission - ? if pre renal from hypovolemia - avoid nephrotoxic meds. hold Lasix and Lisinopril (already received the dose today) - gentle IVF - close I/O 3. Diabetes type 2 - Poor controlled with report of non compliance with Metformin - hold Metformin for now - medium Lispro correction algorithm - HgA1C 11 suggests that oral agents will likely not be adequate to treat her diabetes as outpatient 4. Hypothyroidism - TSH elevated due to non compliance with medications - c/w Synthroid - repeat TSH in 4-6 weeks 5. Chronic systolic heart failure. Chronic - NO evidence of decompensation - Hold Lasix and Lisinopril given WILIAM as noted above 7. Severe mitral regurgitation status post valvular repair, ASD with repair. - No clinical evidence of fluid overload - f/u w/ cardiology consult 8. Non Hodgkin Lymphoma s/p stem cell transplant - presumed stable at this time - follow up with Oncology for surveillance 9. Acute hypomagnesemia. present on admission. ongoing - replete and f/u Dispo: 2-3 days pending cardiology eval/recs and improved renal function. VTE Mechanical Devices: Intermittant Pneumatic CD Resuscitation Status: CPR: Attempt Resuscitation Zaid Hoyt Feb 01, 2017 14:41
[2017-02-01] MEDS ORDERED: Magnesium Sulf 2 Gm/50mL Water 2 GM in IV Premix 1 EACH IV ONE (14:45)
--- NOTE | 2017-02-01 20:03 | NUR ---
Case Management: COS to IP. IMM explained to patient at 1908, all questions answered. Signed original in chart, pt given a copy. Eladia Loredo RN
[2017-02-02] VITALS (8 sets, daily range): BP systolic 97–116; BP diastolic 67–74; PULSE 86–106; RESP 18; O2SAT 86–95
[2017-02-02] MEDS: Sodium Chloride LOK Flush 10 mL Syringe IVFLUSH SCH ×3 (00:30→16:30)
[2017-02-02] MEDS: Heparin 5,000 Unit/mL Inj SUBQ SCH ×3 (00:40→17:13)
[2017-02-02] MEDS: guaiFENesin DM 200-20 mg/10 mL Syrup PO PRN ×3 (02:43→15:31)
[2017-02-02] MEDS: MetoCLOpramide 5 mg/mL 2 mL Inj IVPUSH PRN ×3 (02:53→18:01)
[2017-02-02 06:09] LABS: Magnesium 1.7 mg/dL (1.6-2.6)
[2017-02-02] MEDS: Ondansetron 2 mg/mL 2 mL Inj IVPUSH PRN ×2 (06:44→15:31)
--- NOTE | 2017-02-02 07:15 | PCM.PNMED ---
Subjective Date of Service Feb 02, 2017 Subjective no acute events overnight, no cp/sob reported - Cr rising Exam Vital Signs Vital Sign - Last Date Time Temp Pulse Resp B/P Pulse Ox O2 Delivery O2 Flow Rate FiO2 02/02/17 06:58 93 02/02/17 05:18 36.8 18 116/67 95 Nasal Cannula 1.00 Intake and Output 02/01/17 02/01/17 02/02/17 Cumulative From/Thru 15:00 23:00 07:00 01/30/17 13:45 - 02/02/17 06:24 Intake Total 1570 ml 1290 ml 3920 ml Balance 1570 ml 1290 ml 3920 ml Intake Oral 600 ml 350 ml 2010 ml IV Total 970 ml 940 ml 1910 ml # Voids 2 3 15 # Bowel Movements 0 0 Exam General: Alert, Cooperative, No Acute Distress Head: Normal Eyes: Scleral Anicteric Nose: Mucous Membr Moist/Letcher Mouth: Mucous Membr Moist/Letcher Neck: Supple Chest & Lungs: Chest Wall Normal, Clear to auscultation bilat Cardiovascular: Regular Rate/Rhythm Abdomen: Non-tender, Non-distended, Normoactive bowel tones, Soft Extremities: No cyanosis/clubbing/edema bilat Neurological: Grossly Neurologically Intact, Normal Speech IVs and Medications Medications Reviewed: Medications were reviewed in detail Lab and Diagnostics Result Diagram: 02/01/17 0815 02/02/17 0510 X-Rays, CTs and MRIs X-RAY CHEST ONE VIEW, PORTABLE 01/30/17 IMPRESSION: No acute cardiopulmonary disease. Dictated by: Yash Yu [facility] Interpreted: Hanane Arnold MD on 01/30/2017 at 15:29 Transcribed by: SANDEEP on 01/30/2017 at 15:29 Approved by: Hanane Arnold MD, PhD on 01/30/2017 at 16:30 CT ANGIO CHEST PULMONARY EMBOLISM 01/30/17 IMPRESSION: 1. No acute process. 2. No pulmonary embolus. 3. Left pleural and lower lobe nodules as described above, largest of which measures 10 mm; followup is recommended as below. 4. Right basilar pleural-parenchymal opacity, presumably reflecting scarring secondary to prior infection/inflammation. Recommend attention to this region on followup imaging studies. Fleischner Society criteria for SOLID lung nodule followup. Nodule size (mm)Low-risk patientHigh-risk patient<6 (single or multiple)No routine followup.Optional CT at 12 months. 6-8 (single or multiple)CT at 6-12 months, then optional CT at 18-24 mo.CT at 6-12 months, then CT at 18-24 months. >8 (single)CT, PET-CT, or biopsy at 3 months. Same as for low-risk pts. >8 (multiple)CT at 3-6 months, then optional CT at 18-24 mo.CT at 3-6 months, then CT at 18-24 months. Recommendations do not apply to lung cancer screening, patients with immunosuppression, or patients with known primary cancer. Dictated by: Tobias Mayer M.D. on 01/30/2017 at 16:19 Approved by: Tobias Mayer M.D. on 01/30/2017 at 16:26 Assessment & Plan 61 year old female with Non hodgkin's lymphoma, a [place] filter placed due to multiple PE, coronary artery disease post CABG, diabetes, and hyperthyroidism, presents to the [facility] emergency department complaining of shortness of breathe and feelings of chest heaviness 1. Acute Chest pain. Present on admission - Acute coronary syndrome ruled out with negative Trop - Pulmonary embolism ruled out with normal CT chest. - Echo 01/31/17: EF 25-30% and "Global hypokinesis that is significantly worse in the inferior wall and the septum" - Abnormal nuclear cardiac stress study on 01/31/17 - cardiology consulted. awaiting further recs 2. Acute Kidney injury. Present on admission - ? if pre renal from hypovolemia - avoid nephrotoxic meds. hold Lasix and Lisinopril (already received the dose today) - gentle IVF - close I/O 3. Diabetes type 2 - Poor controlled with report of non compliance with Metformin - hold Metformin for now - medium Lispro correction algorithm - HgA1C 11 suggests that oral agents will likely not be adequate to treat her diabetes as outpatient 4. Hypothyroidism - TSH elevated due to non compliance with medications - c/w Synthroid - repeat TSH in 4-6 weeks 5. Chronic systolic heart failure. Chronic - NO evidence of decompensation - Hold Lasix and Lisinopril given WILIAM as noted above 7. Severe mitral regurgitation status post valvular repair, ASD with repair. - No clinical evidence of fluid overload - f/u w/ cardiology consult 8. Non Hodgkin Lymphoma s/p stem cell transplant - presumed stable at this time - follow up with Oncology for surveillance 9. Acute hypomagnesemia. present on admission. ongoing - replete and f/u Dispo: 2-3 days pending cardiology eval/recs and improved renal function. Pain Evaluation: Adequate Pain Control VTE Prophylaxis: Sub-Q Heparin (Unfractionated) VTE Mechanical Devices: Intermittant Pneumatic CD Resuscitation Status: CPR: Attempt Resuscitation Time spent 35 minutes spent with eval and mgmt Naveed Negro DO Feb 02, 2017 07:15
[2017-02-02] MEDS: 0.9% Sodium Chloride 1,000 ML IV SCH ×2 (07:38→21:58)
[2017-02-02] MEDS: Insulin LISPRO High-Dose Scale SUBQ PRN ×4 (07:42→22:06)
[2017-02-02] MEDS: MeTOProlol XL 25 mg ER24 Tablet PO SCH (07:49)
[2017-02-02 10:24] LABS: BASOPHILS % (AUTO) 0.6 % (0-3); EOSINOPHILS % (AUTO) 0.4 % (0-5); MONOCYTES % (AUTO) 8.4 % (4-12); Mean Corpuscular Hemoglobin 30.4 pg (27.0-35.0); Mean Corpuscular Volume 97.9 fL (81-100); NEUTROPHILS % (AUTO) 78.2 % (40-74); Platelet Count 188 bil/L (150-400)
[2017-02-02] MEDS ORDERED: Furosemide 10 mg/mL 10 mL Inj IVPUSH ONE (10:35)
--- NOTE | 2017-02-02 12:33 | NUR ---
Oxygen Pt was on 1LNC in the morning with an Sp02 of 86-88% after patient was sat up and encouraged to take deep breaths and cough. Increased to 2L and pts Sp02 maintained at 89%. RT turned patient up to 3L and Sp02 93% and administered breathing tx. Continue to monitor
--- NOTE | 2017-02-02 12:53 | PCM.CHPCAR ---
Consult Subjective Date of service Feb 02, 2017 Date of admit Jan 30, 2017 at 18:19 Provider Requesting Consult Primary Care Physician Primary Care Physician: Tracey Burr MD Chief Complaint Chest pain History of Present Illness Trina Brothers a 61-year-old woman with known history of CAD, multiple PE status post Rudy filter, DVT, CHF, severe MR status post annuloplasty ( March 2014) ASD repair, hyperlipidemia, CVA, paroxysmal AF, CHF. She admits to stopping all of her medications approximately 3 months ago secondary to nausea. During this time she has noticed increased weight gain with peripheral edema and intermittent dyspnea. She claims she would occasionally take her water pill if the swelling was bothering her. She states over the last week she was taking care of her granddaughter who had a respiratory infection. On Monday, January 30 she began to feel she was coming down with respiratory illnesses well with noted increased shortness of breath fatigue and feeling run down. He woke that morning with 5 out of 10 left parasternal/substernal chest pain with associated dyspnea, leg swelling and radiation to her left shoulder and arm. Since her symptoms were aggravated by walking and her dyspnea aggravated by lying down. Patient came to the hospital for further evaluation. Patient has not seen her cheese sprayer, Dr. Arriola, in over a year. Review of Systems Review of Systems # GEN-reports increasing weight, decreasing appetite and fatigue and malaise with associated cough fever and chills. # HEENT-positive for sinus congestion, intermittent headache, postnasal drip with mild sore throat. Denies visual change, hearing problems.- # NECK-denies adenopathy or difficulty swallowing #CHEST-positive for nonproductive cough and shortness of breath. #CV-denies chest pain in the last 24-48 hours. No palpitations or dizziness. Denies syncope. She has noted increased swelling with associated weight gain that responds to oral diuretics at home. To decreasing exercise capacity with increased edema. #GI-occasional intermittent cramping abdominal pain associated with constipation. Claims this is chronic since her colectomy. Denies hematochezia or melena. #-admits to mild vaginal discharge. Denies dysuria urgency or frequency. #ENDO-patient is hypothyroid secondary to thyroidectomy post cancer 1985. Positive for poorly controlled diabetes #NEURO-referral neuropathy mostly to feet starting to involve hands. Pain and tingling #PSYCH- long history of depression refractory to medications. #INTEG- rash to her feet #MS-joint aches and pains, history of spinal stenosis. His redness or swelling. PMH Past Medical History CAD HYPOTHYROIDISM DVT PE MULTIPLE CVA ( RIGHT SIDED) SEVERE MR/ SP REPAIR POST OP AFIB ASD (REPAIRED) HYPERLIPIDEMIA NON HODGKINS LYMPHOMA CHF THYROID CANCER SPINAL STENOSIS Past Surgical History MITRAL VALVE REPAIR, CALDERÓN RENAY ANNULOPLASTY PFO REPAIR HERNIA REPAIR L KNEE REPLACEMENT OOPHORECTOMY CHOLECYSTECTOMY APPENDECTOMY PREVIOUS HEART CATH. THYROIDECTOMY -86 Bedside Blood Glucose: 259 Scheduled Atorvastatin (Lipitor) 40 Mg Tablet 40 MG PO HS (Reported) Citalopram (Citalopram) 40 Mg Tablet 40 MG PO DAILY (Reported) Furosemide (Furosemide) 40 Mg Tablet 40 MG PO QAM (Reported) Levothyroxine (Levothyroxine) 300 Mcg Tablet 325 MCG PO QAM (Reported) TAKE 300 MCG TABLET + 25 MCG TABLET (=325 MCG) Lisinopril (Lisinopril) 5 Mg Tablet 5 MG PO DAILY (Reported) Metformin (Glucophage) 1,000 Mg Tablet 1,000 MG PO BIDWM (Reported) Metoprolol Succinate ER (Metoprolol Succinate ER) 25 Mg Tab.er.24h 25 MG PO DAILY (Reported) Potassium Chloride (Potassium Chloride) 10 Meq Capsule.er 10 MEQ PO DAILYWM ( Reported) TAKE WITH FOOD Scheduled PRN Ropinirole (Ropinirole) 0.25 Mg Tablet 0.5 MG PO HS PRN PRN RESTLESS LEG ( Reported) oxyCODONE (oxyCODONE) 5 Mg Tablet 5 MG PO TID PRN PRN For Pain (Reported) Current Inpatient Medications Current Medications Atorvastatin Calcium 40 mg HS PO Last administered on 02/01/17 21:47; Admin Dose 40 MG; Start 01/31/17 at 21:00 Insulin Human Lispro Nutritional Dose recomm... PRN PRN SUBQ Last administered on 02/02/17 11:52; Admin Dose 7 UNIT; Start 01/31/17 at 17:35 Dexbrompheniramine/ Guaifenesin 10 ml Q6H PRN PO Last administered on 02/02/17 09:09; Admin Dose 10 ML; Start 02/02/17 at 02:40 Benzonatate 100 mg TID PRN PO Last administered on 3/9/17at 11:16; Admin Dose 100 MG; Start 02/02/17 at 10:40 Allergies: Coded Allergies: terfenadine (Verified Allergy, Mild, 01/30/17) Cephalosporins (Verified Allergy, Unknown, 1st generation, 01/30/17) Penicillins (Verified Allergy, Unknown, 01/30/17) Sulfa (Sulfonamide Antibiotics) (Verified Allergy, Unknown, 01/30/17) erythromycin base (Verified Allergy, Unknown, 01/30/17) ferrous sulfate (Verified Allergy, Unknown, 01/30/17) gabapentin (Verified Allergy, Unknown, 01/30/17) hydrocodone (Verified Allergy, Unknown, 01/30/17) loracarbef (Verified Allergy, Unknown, 01/30/17) loratadine (Verified Allergy, Unknown, 01/30/17) meperidine (Verified Allergy, Unknown, 01/30/17) salsalate (Verified Allergy, Unknown, 01/30/17) shellfish derived (Verified Allergy, Unknown, 01/30/17) Uncoded Allergies: ANTIDEPRESSANTS (Allergy, Unknown, unsure which, 04/09/16) Family History Family History Father unknown Mother- positive cardiac history specifics unknown, brother -CABG mid 50s. Social History Hx Alcohol Use: NoHx Substance Use: NoHx Tobacco Use: No Smoking Status: Never Smoker Living Arrangement: with Family Exam Vital Signs Vital Sign - Last Date Time Temp Pulse Resp B/P Pulse Ox O2 Delivery O2 Flow Rate FiO2 02/02/17 12:41 37.5 02/02/17 10:54 100 18 108/72 86 Nasal Cannula 1.00 Intake and Output 02/01/17 02/01/17 02/02/17 Cumulative From/Thru 15:00 23:00 07:00 01/30/17 13:45 - 02/02/17 06:24 Intake Total 1570 ml 1290 ml 3920 ml Balance 1570 ml 1290 ml 3920 ml Intake Oral 600 ml 350 ml 2010 ml IV Total 970 ml 940 ml 1910 ml # Voids 2 3 15 # Bowel Movements 0 0 Objective # GEN -she will lying back approximately 30 in bed in no apparent distress. # HEENT-face is symmetric. Eyes clear without icterus, pharynx with postnasal drip no significant erythema, buccal mucosa is moist. # NECK-supple without adenopathy. Thyroid nonpalpable #CHEST-symmetric, no retractions. Breathing freely. Wheezing throughout mild rhonchi. On the right mid posterior chest. #CV-regular rate and rhythm without gallop or rub. No edema to lower extremities. Pedal pulses not palpable. No carotid bruits, no significant JVD. #GI-diminished soft nontender with normal bowel sounds. No mass #- deferred #NEURO-no gross motor deficits appreciated. #PSYCH-tissue appears pink good spirits, mood is appropriate for situation.- #INTEG- skin is warm to touch. She has what appears to be dry skin to her feet otherwise benign appearing. #MS-no obvious joint swelling or redness. Lab and Diagnostics Labs Troponins negative 3 Pro BNP 1715 D-dimer 1.1 TSH 67.58, T4 0.3 Total cholesterol 328, triglycerides 609, LDL 168.2, HDL 38 Result Diagram: 02/02/1750902/02/17509 X-Rays, CTs and MRIs Echocardiogram 1) Mildly dilated left ventricle with normal thickness and severely reduced systolic function (EF 25-30%). 2) Global hypokinesis that is significantly worse in the inferior wall and the septum. 3) Normal right ventricular size with mildly reduced function. 4) Posterior leaflet of the mitral valve is fixed. Mild mitral regurgitation present. 5) Mild to moderate tricuspid regurgitation. 6) Normal pulmonary artery pressures. 7) No prior Echo available for comparison. Findings are suggestive of ischemic cardiomyopathy. nuclear cardiac stress study: A. Normal pharmacologic response to Lexiscan without chest pain or diagnostic electrocardiographic changes. B. Mildly dilated left ventricle with moderately severe left ventricular systolic dysfunction with severe hypokinesis involving the septum and inferior wall. C. Moderate hypoperfusion involving the interventricular septum, which may be consistent with the patient's interventricular conduction delay. There appears to be a region of fixed, moderately severe hypoperfusion involving the inferior wall, consistent with probably a nontransmural infarction. I do not see any evidence of a reversible perfusion abnormality that would suggest ischemia. Clinical correlation suggested. CT angiogram IMPRESSION: per Radiology 1. No acute process. 2. No pulmonary embolus. 3. Left pleural and lower lobe nodules, largest of which measures 10 mm; followup is recommended as below. 4. Right basilar pleural-parenchymal opacity, presumably reflecting scarring secondary to prior infection/inflammation. Recommend attention to this region on followup imaging studies. 12-lead ECG sinus rhythm with LBBB. Assessment & Plan Assessment Trina Brothers a 61-year-old woman with known history of CAD, multiple PE status post Rudy filter, DVT, CHF, severe MR status post annuloplasty ( March 2014) ASD repair, hyperlipidemia, CVA, paroxysmal AF, CHF. She admits to stopping all of her medications approximately 3 months ago secondary to nausea. During this time she has noticed increased weight gain with peripheral edema and intermittent dyspnea. She claims she would occasionally take her water pill if the swelling was bothering her. She states over the last week she was taking care of her granddaughter who had a respiratory infection. On Monday, January 30 she began to feel she was coming down with respiratory illnesses well with noted increased shortness of breath fatigue and feeling run down. He woke that morning with 5 out of 10 left parasternal/substernal chest pain with associated dyspnea, leg swelling and radiation to her left shoulder and arm. Since her symptoms were aggravated by walking and her dyspnea aggravated by lying down. Patient came to the hospital for further evaluation. Patient's cardiac history is aggravated by lack of compliance with medications possibly related to ongoing depression. Outside hospital records not available at time of this dictation. Patient has really reduced systolic function on echocardiogram EF 25-30%, with global hypokinesis that is significantly worse in the inferior wall and septum. Findings are suggestive of ischemic cardiomyopathy. Her Lexiscan nuclear medicine stress test showed normal pharmacological response to Lexiscan without chest pain symptoms or diagnostic electrocardiographic changes. Dr. Price did not appreciate any reversible perfusion abnormality that would suggest ischemia. There appeared to be a fixed moderately severe hypoperfusion involving the inferior wall consistent with probable nontransmural infarction. CT angiogram was negative for PE or acute process. #Coronary artery disease- chest pain per patient the last 24-48 hours. Lexiscan. Be negative for reversible ischemia. Her compliance with medications # ischemic cardiomyopathy- severely reduced LVEF (25-30%) with global hypokinesis significantly worse in the inferior wall and septum. She does not appear to be volume overloaded at this time. #Hyperlipidemia-resume statin medications #Diabetes-compliance with medications, will need follow-up with primary care to reestablish control after hospitalization. # Hypothyroidism-status post thyroidectomy secondary to thyroid cancer, poor control secondary to noncompliance with medications which have been restarted. Close follow-up as an outpatient and recommended. #Mitral valve disease- is post Calder[place] Renay annuplasty; stable #Acute febrile respiratory illness- patient is wheezy and feeling short of breath. Management per hospitalist #hyponatremia-further workup and management per hospitalist #WILIAM-management per hospitalist Pain Evaluation: Adequate Pain Control VTE Prophylaxis: Sub-Q Heparin (Unfractionated) Resuscitation Status: CPR: Attempt Resuscitation Rashid Yarbrough PA-C Feb 02, 2017 12:52
--- NOTE | 2017-02-02 18:17 | NUR ---
nausea Pt has reported nausea throughout shift pt has received 5mg IVP regland Q6h with minimal relief. Pt has also received 8mg zofran Q6h in between doses of regland which pt stated reduced her nausea for a couple hours.
[2017-02-03] VITALS (11 sets, daily range): BP systolic 94–122; BP diastolic 60–79; PULSE 92–99; RESP 18–24; O2SAT 86–98
[2017-02-03] MEDS: Heparin 5,000 Unit/mL Inj SUBQ SCH ×3 (00:15→17:07)
[2017-02-03] MEDS: Sodium Chloride LOK Flush 10 mL Syringe IVFLUSH SCH ×3 (00:16→16:30)
[2017-02-03] MEDS: guaiFENesin DM 200-20 mg/10 mL Syrup PO PRN ×3 (00:46→16:08)
--- NOTE | 2017-02-03 06:48 | NUR ---
O2 Sat / Acapella 90% o2 sat on 3L this AM after encouraging use of Acapella. Lung sounds upper respiratory congestion with Robitussin DM administered during night. HOB 30 degrees. No c/o nausea or SOB
[2017-02-03] MEDS: MeTOProlol XL 25 mg ER24 Tablet PO SCH (08:55)
[2017-02-03] MEDS: Ondansetron 2 mg/mL 2 mL Inj IVPUSH PRN ×2 (08:56→20:31)
--- NOTE | 2017-02-03 09:01 | PCM.PNMED ---
Subjective Date of Service Feb 03, 2017 Subjective - Denies any more episodes of chest pain. - Still short of breath and on oxygen 3L with Spo2 of about 90% - No acute events over night. Exam Vital Signs Vital Sign - Last Date Time Temp Pulse Resp B/P Pulse Ox O2 Delivery O2 Flow Rate FiO2 02/03/17 06:10 37.1 96 22 108/70 90 Nasal Cannula 3.00 Intake and Output 02/02/17 02/02/17 02/03/17 Cumulative From/Thru 15:00 23:00 07:00 01/30/17 13:45 - 02/03/17 06:34 Intake Total 1386 ml 400 ml 5706 ml Balance 1386 ml 400 ml 5706 ml Intake Oral 550 ml 400 ml 2960 ml IV Total 836 ml 2746 ml # Voids 3 2 20 # Bowel Movements 0 0 Exam General: Alert, Cooperative, No Acute Distress Head: Normal Eyes: Scleral Anicteric Nose: Mucous Membr Moist/[place] Neck: Supple Chest & Lungs: Chest Wall Normal, decrease breath sounds bilaterally Cardiovascular: Regular Rate/Rhythm Abdomen: Non-tender, Non-distended, Normoactive bowel tones, Soft Extremities: No cyanosis/clubbing/edema bilat Neurological: Grossly Neurologically Intact, Normal Speech IVs and Medications Medications Reviewed: Medications were reviewed in detail Lab and Diagnostics Result Diagram: 02/02/17 0510 02/02/17 0510 X-Rays, CTs and MRIs X-RAY CHEST ONE VIEW, PORTABLE 01/30/17 IMPRESSION: No acute cardiopulmonary disease. Dictated by: Yash Yu [facility] Interpreted: Hanane Arnold MD on 01/30/2017 at 15:29 Transcribed by: SANDEEP on 01/30/2017 at 15:29 Approved by: Hanane Arnold MD, PhD on 01/30/2017 at 16:30 CT ANGIO CHEST PULMONARY EMBOLISM 01/30/17 IMPRESSION: 1. No acute process. 2. No pulmonary embolus. 3. Left pleural and lower lobe nodules as described above, largest of which measures 10 mm; followup is recommended as below. 4. Right basilar pleural-parenchymal opacity, presumably reflecting scarring secondary to prior infection/inflammation. Recommend attention to this region on followup imaging studies. Fleischner Society criteria for SOLID lung nodule followup. Nodule size (mm)Low-risk patientHigh-risk patient<6 (single or multiple)No routine followup.Optional CT at 12 months. 6-8 (single or multiple)CT at 6-12 months, then optional CT at 18-24 mo.CT at 6-12 months, then CT at 18-24 months. >8 (single)CT, PET-CT, or biopsy at 3 months. Same as for low-risk pts. >8 (multiple)CT at 3-6 months, then optional CT at 18-24 mo.CT at 3-6 months, then CT at 18-24 months. Recommendations do not apply to lung cancer screening, patients with immunosuppression, or patients with known primary cancer. Dictated by: Tobias Mayer M.D. on 01/30/2017 at 16:19 Approved by: Tobias Mayer M.D. on 01/30/2017 at 16:26 Assessment & Plan 61 year old female with Non hodgkin's lymphoma, a [place] filter placed due to multiple PE, coronary artery disease post CABG, diabetes, and hyperthyroidism, presents to the [facility] emergency department complaining of shortness of breathe and feelings of chest heaviness 1. Acute Chest pain. Present on admission - Acute coronary syndrome ruled out with negative Trop - Pulmonary embolism ruled out with normal CT chest. - Echo 01/31/17: EF 25-30% and "Global hypokinesis that is significantly worse in the inferior wall and the septum" - Abnormal nuclear cardiac stress study on 01/31/17 - cardiology consulted. No acute intervention at this time. 2. Acute Kidney injury. Present on admission - ? if pre renal from hypovolemia - avoid nephrotoxic meds. hold Lasix and Lisinopril - Creatinine is worsening 1.50 <--- 1.46 - gentle IVF - Strict monitoring of I/O 3. Diabetes type 2 - Poor controlled with report of non compliance with Metformin - hold Metformin for now - medium Lispro correction algorithm - HgA1C 11 suggests that oral agents will likely not be adequate to treat her diabetes as outpatient 4. Hypothyroidism - TSH elevated due to non compliance with medications - c/w Synthroid - repeat TSH in 4-6 weeks 5. Chronic systolic heart failure. Chronic - NO evidence of decompensation - Hold Lasix and Lisinopril given WILIAM as noted above 7. Severe mitral regurgitation status post valvular repair, ASD with repair. - No clinical evidence of fluid overload - f/u w/ cardiology consult 8. Non Hodgkin Lymphoma s/p stem cell transplant - presumed stable at this time - follow up with Oncology for surveillance 9. Acute hypomagnesemia. present on admission. ongoing - replete and f/u Dispo: 2-3 days pending improvement in renal function. Pain Evaluation: Adequate Pain Control VTE Prophylaxis: Sub-Q Heparin (Unfractionated) VTE Mechanical Devices: Intermittant Pneumatic CD Resuscitation Status: CPR: Attempt Resuscitation Jessee Dempsey MD Feb 03, 2017 09:01
[2017-02-03] MEDS: Insulin LISPRO High-Dose Scale SUBQ PRN ×4 (09:04→23:41)
[2017-02-03] MEDS: 0.9% Sodium Chloride 1,000 ML IV SCH (10:05)
[2017-02-03] MEDS ORDERED: Furosemide 10 mg/mL 4 mL Inj IVPUSH ONE (18:00)
--- NOTE | 2017-02-03 18:28 | DRSVH ---
PROCEDURE: X-RAY CHEST, TWO VIEWS ([id number]) INDICATIONS: SHORTNESS OF BREATH, POSSIBLE FLUID OVERLOAD TECHNIQUE: 2 views of the chest were acquired. COMPARISON: None. FINDINGS: Surgical changes and devices: Patient is status post median sternotomy and probable thyroid dissectio n. The superior 2 sternotomy wires are fractured and displaced. Lungs and pleura: Consolidative radiopacities are present within the right middle lobe and the right lower lobe. Mild patchy opacities are present throughout the more aerated portions of both lungs. The re may be a small right pleural effusion. Mediastinum: Mediastinal contours are normal. Heart size is normal. Bones and chest wall: No suspicious bony abnormalities. Soft tissues appear unremarkable. IMPRESSION: 1. Findings suspicious for multi-lobar aspiration or pneumonia. 2. Patchy opacities within the more aerated portions of lungs may be associated with fluid overload o r multifocal pneumonia. Dictated by: Johana Altamirano M.D. on 02/03/2017 at 18:24 Approved by: Johana Altamirano M.D. on 02/03/2017 at 18:26
--- NOTE | 2017-02-03 18:40 | NUR ---
02/respiratory/mentation Pt lungs continued to worsen with audible crackles and auscultated wheezing and coarseness throughout. MD was aware and wanted to continue IV fluids at 80 mls/hr and hold lasix. pt oxygen demands increase and her Sp02 on 4L [place] was 87%. Patient was purse lipped breathing and unable to respond to questions appropriately. Apply mask instead of NC and turned o2 up to 6L; Sp02 93%. Saline lock pt. Notified MD. Per MD orders ordered stat cxr, dc'd fluids in emar and placed order for 30mg IVP lasix. pt was unable to ambulate or communicate with transporter to xray. Pt returned from xray. administered Lasix, called RT who said to monitor her for awhile after the lasix works and if she continues to stay the same or worsen place on oxymask, order an ABG and possibly put her on a bipap. Pt was unaware that she had even gone to XRAY
--- NOTE | 2017-02-03 19:52 | ABG ---
DateTimeAnalyzed 19:47:00 -_ pH ____7.310 - 7.350 7.450 pCO2 ___48.0__ -mmHg 35.0 45.0 pO2 ___81.9__ -mmHg 69.0 116 HCO3- ___23.5__ -mmol/L 22.0 26.0 ABE ___-2.2__ -mmol/L -2.0 2.0 tHb ____9.1__ -g/dL O2Hb ___92.3__ -% COHb ____0.2__ -% MetHb ____1.1__ -% sO2 ___93.5__ -% FIO2 ___50.0__ -% Drawn By AF - Date/Time Notified____ 19:52:00 -_ Oxygen Device 1 SIMP MASK - Notified By AF - Notified Whom _Kelly RN - B 764 -mmHg tO2 ___11.9__ -Vol% Frederick test _Positive -
[2017-02-03] MEDS ORDERED: Furosemide 10 mg/mL 10 mL Inj IVPUSH ONE (20:35)
[2017-02-03] MEDS ORDERED: Nitroglycerin 2% 1 Gm Ointment TOPICAL SCH (20:35)
--- NOTE | 2017-02-03 20:35 | NUR ---
TRANSFER TO 2023 FROM 3003 Pt has been having increased SOB, weakness and confusion per previous shift report. ABGs ordered. RT arrived, discussed ABG results w/ NOC hospitalist. Rec'd orders to transfer pt to [facility] for BIPAP. Telephone report given to Sharona Aguirre RN approx 2009. [facility] [place] RN called pts daughter approx 2019, and notified pts daughter of change in pts status and room transfer to 2023. technical services manager notified of pt transfer. All pt belongings and medications in drawer w/ pt and pts chart. Pt transferred by WINDING MACHINE OPERATOR and RN to room via hospital bed, 6L oxygen via oxymask en route. Pt connected to wall oxygen and CPOx. 2nd floor mat roller met pt in room and called RT to set up BIPAP.
--- NOTE | 2017-02-03 20:51 | PCM.PNMED ---
Subjective Date of Service Feb 03, 2017 Subjective As to see patient for increasing respiratory distress. Patient denies any chest pain at this time. Denies any fevers or cough. Exam Vital Signs Vital Sign - Last Date Time Temp Pulse Resp B/P Pulse Ox O2 Delivery O2 Flow Rate FiO2 02/03/17 17:53 36.9 95 22 122/79 86 Nasal Cannula 4.00 Intake and Output 02/02/17 02/02/17 02/03/17 Cumulative From/Thru 15:00 23:00 07:00 01/30/17 13:45 - 02/03/17 06:34 Intake Total 1386 ml 400 ml 5706 ml Balance 1386 ml 400 ml 5706 ml Intake Oral 550 ml 400 ml 2960 ml IV Total 836 ml 2746 ml # Voids 3 2 20 # Bowel Movements 0 0 Exam Constitutional: Middle-aged woman in respiratory distress Head: Normocephalic atraumatic Chest: Diffuse rales and rhonchi Cor: Regular rate and rhythm S1-S2 with 2/6 systolic murmur Abdomen: Soft nontender bowel sounds present Extremities: Trace bilateral pedal edema Neuro: Alert and oriented 3, motor strength is intact bilaterally Lab and Diagnostics Laboratory Tests 72 Hours Test 02/01/17 08:15 02/02/17 05:10 02/02/17 08:50 White Blood Count 6.8th/mm3 (3.8-10.1) 9.9th/mm3 (3.8-10.1) Red Blood Count 3.53mil/mm3 (3.90-5.20) 3.26mil/mm3 (3.90-5.20) Hemoglobin 10.9g/dL (12.0-15.6) 9.9g/dL (12.0-15.6) Hematocrit 34.0% (35.0-46.0) 31.9% (35.0-46.0) Mean Corpuscular Volume 96.3fL (81-100) 97.9fL (81-100) Mean Corpuscular Hemoglobin 30.9pg (27.0-35.0) 30.4pg (27.0-35.0) Mean Corpuscular Hemoglobin Concent 32.1% (32.0-37.0) 31.0% (32.0-37.0) Red Cell Distribution Width 13.3% (12.3-15.4) 13.7% (12.3-15.4) Platelet Count 182bil/L (150-400) 188bil/L (150-400) Sodium Level 133mEq/L (134-144) 130mEq/L (134-144) Potassium Level 4.5mEq/L (3.5-5.2) 4.5mEq/L (3.5-5.2) Chloride Level 96mEq/L (97-108) 95mEq/L (97-108) Carbon Dioxide Level 21mmol/L (18-29) 19mmol/L (18-29) Blood Urea Nitrogen 25mg/dL (8-27) 28mg/dL (8-27) Creatinine 1.46mg/dL (0.57-1.00) 1.50mg/dL (0.57-1.00) Estimat Glomerular Filtration Rate 52mL/min (>59) 51mL/min (>59) Glucose Level 194mg/dL (60-99) 273mg/dL (60-99) Calcium Level 8.7mg/dL (8.5-10.1) 8.3mg/dL (8.5-10.1) Magnesium Level 1.5mg/dL (1.6-2.6) 1.7mg/dL (1.6-2.6) Neutrophils (%) (Auto) 78.2% (40-74) Lymphocytes (%) (Auto) 12.1% (14-46) Monocytes (%) (Auto) 8.4% (4-12) Eosinophils (%) (Auto) 0.4% (0-5) Basophils (%) (Auto) 0.6% (0-3) Pro-B-Type Natriuretic Peptide 1715pg/mL (0-287) Triglycerides Level 609mg/dL (0-149) Cholesterol Level 328mg/dL (100-199) LDL Cholesterol, Calculated 168.200mg/dL (0-99) VLDL Cholesterol 121.800mg/dL HDL Cholesterol 38mg/dL (>39) Cholesterol/HDL Ratio 8.63 (0.0-4.4) Procalcitonin 0.20ng/mL (0.00-0.08) Result Diagram: 02/02/17 0510 02/02/17 0510 X-Rays, CTs and MRIs X-RAY CHEST ONE VIEW, PORTABLE 01/30/17 IMPRESSION: No acute cardiopulmonary disease. Dictated by: Yash Yu [facility] Interpreted: Hanane Arnold MD on 01/30/2017 at 15:29 Transcribed by: SANDEEP on 01/30/2017 at 15:29 Approved by: Hanane Arnold MD, PhD on 01/30/2017 at 16:30 CT ANGIO CHEST PULMONARY EMBOLISM 01/30/17 IMPRESSION: 1. No acute process. 2. No pulmonary embolus. 3. Left pleural and lower lobe nodules as described above, largest of which measures 10 mm; followup is recommended as below. 4. Right basilar pleural-parenchymal opacity, presumably reflecting scarring secondary to prior infection/inflammation. Recommend attention to this region on followup imaging studies. Fleischner Society criteria for SOLID lung nodule followup. Nodule size (mm)Low-risk patientHigh-risk patient<6 (single or multiple)No routine followup.Optional CT at 12 months. 6-8 (single or multiple)CT at 6-12 months, then optional CT at 18-24 mo.CT at 6-12 months, then CT at 18-24 months. >8 (single)CT, PET-CT, or biopsy at 3 months. Same as for low-risk pts. >8 (multiple)CT at 3-6 months, then optional CT at 18-24 mo.CT at 3-6 months, then CT at 18-24 months. Recommendations do not apply to lung cancer screening, patients with immunosuppression, or patients with known primary cancer. Dictated by: Tobias Mayer M.D. on 01/30/2017 at 16:19 Approved by: Tobias Mayer M.D. on 01/30/2017 at 16:26 Cardiac Echo Impressions MARZENA METZ 1955 Female DateTimeAnalyzed 19:47:00 -_ pH ____7.310 - 7.350 7.450 pCO2 ___48.0__ -mmHg 35.0 45.0 pO2 ___81.9__ -mmHg 69.0 116 HCO3- ___23.5__ -mmol/L 22.0 26.0 ABE ___-2.2__ -mmol/L -2.0 2.0 tHb ____9.1__ -g/dL O2Hb ___92.3__ -% COHb ____0.2__ -% MetHb ____1.1__ -% sO2 ___93.5__ -% FIO2 ___50.0__ -% Drawn By AF - Date/Time Notified____ 19:52:00 -_ Oxygen Device 1 SIMP MASK - Notified By AF - Notified Whom _Kelly RN - B 764 -mmHg tO2 ___11.9__ -Vol% [place] test _Positive - Assessment & Plan 61 year old female with Non hodgkin's lymphoma, a [place] filter placed due to multiple PE, coronary artery disease post CABG, diabetes, and hyperthyroidism, presents to the [facility] emergency department complaining of shortness of breathe and feelings of chest heaviness 1. Acute Chest pain. Present on admission - Acute coronary syndrome ruled out with negative Trop - Pulmonary embolism ruled out with normal CT chest. - Echo 01/31/17: EF 25-30% and "Global hypokinesis that is significantly worse in the inferior wall and the septum" - Abnormal nuclear cardiac stress study on 01/31/17 - cardiology consulted. No acute intervention at this time. 2. Acute Kidney injury. Present on admission - ? if pre renal from hypovolemia - avoid nephrotoxic meds. hold Lasix and Lisinopril - Creatinine is worsening 1.50 <--- 1.46 - gentle IVF - Strict monitoring of I/O 3. Diabetes type 2 - Poor controlled with report of non compliance with Metformin - hold Metformin for now - medium Lispro correction algorithm - HgA1C 11 suggests that oral agents will likely not be adequate to treat her diabetes as outpatient 4. Hypothyroidism - TSH elevated due to non compliance with medications - c/w Synthroid - repeat TSH in 4-6 weeks 5. Chronic systolic heart failure. Chronic - NO evidence of decompensation - Hold Lasix and Lisinopril given WILIAM as noted above 7. Severe mitral regurgitation status post valvular repair, ASD with repair. - No clinical evidence of fluid overload - f/u w/ cardiology consult 8. Non Hodgkin Lymphoma s/p stem cell transplant - presumed stable at this time - follow up with Oncology for surveillance 9. Acute hypomagnesemia. present on admission. ongoing - replete and f/u Dispo: 2-3 days pending improvement in renal function. Assessment and plan regarding acute problem: Patient with increasing respiratory distress and some hypercapnia along with hypoxia. After review of chart patient has definitely had I is much greater than O's. So suspect acute systolic congestive heart failure. Echo reveals poor systolic function with global hypokinesis. We will go ahead and treat with IV Lasix, topical Nitropaste, We will also check serial cardiac enzymes BNP Check 12-lead EKG and check stat portable chest x-ray Patient does not have elevated white count or does not have fevers or chills so doubt pneumonia is playing a part. VTE Prophylaxis: Sub-Q Heparin (Unfractionated) VTE Mechanical Devices: Intermittant Pneumatic CD Resuscitation Status: CPR: Attempt Resuscitation Time spent 40 minutes of critical care time Talia Khoury MD Feb 03, 2017 20:51
--- NOTE | 2017-02-03 21:14 | DRSVH ---
PROCEDURE: X-RAY CHEST ONE VIEW, PORTABLE ([id number]) INDICATIONS: dyspnea TECHNIQUE: One view of the chest was acquired. COMPARISON: [facility], CR, XR CHEST 2VW, 02/03/2017, 17:56. FINDINGS: Surgical changes and devices: Median sternotomy and thyroidectomy redemonstrated. Lungs and pleura: Patchy pulmonary opacities within the right mid and lower lung are unchanged. Promi nence of the interstitium is redemonstrated, unchanged. Mediastinum: Mediastinal contours appear normal. Heart size is normal. Bones and chest wall: No suspicious bony lesions. Overlying soft tissues appear unremarkable. IMPRESSION: Stable findings when compared with the study from earlier tonight including consolidation of the right mid and lower lung and diffuse interstitial prominence suggesting a combination of infe ction and fluid overload or multifocal infection. Dictated by: Johana Altamirano M.D. on 02/03/2017 at 21:11 Approved by: Johana Altamirano M.D. on 02/03/2017 at 21:12
--- NOTE | 2017-02-03 21:23 | NUR ---
Transfer to [facility] Patient arrived to [facility] 2023 at 0 to initiate BiPAP. RT at bedside. Patient A&Ox3, audible coarse crackles and wheezes when standing at bedside. Patient started on BiPAP with FiO2 35%, SpO2 95%. Continue close monitoring.
[2017-02-03 21:37] LABS: TROPONIN T 0.01 ug/L (0.0-0.011)
[2017-02-04] VITALS (15 sets, daily range): BP systolic 94–119; BP diastolic 56–72; PULSE 88–109; RESP 16–24; O2SAT 93–98
[2017-02-04] MEDS: Sodium Chloride LOK Flush 10 mL Syringe IVFLUSH SCH ×3 (00:39→16:30)
[2017-02-04] MEDS: guaiFENesin DM 200-20 mg/10 mL Syrup PO PRN ×2 (00:40→15:07)
[2017-02-04] MEDS: Heparin 5,000 Unit/mL Inj SUBQ SCH ×3 (00:40→16:59)
[2017-02-04] MEDS: Ondansetron 2 mg/mL 2 mL Inj IVPUSH PRN ×4 (00:40→21:41)
[2017-02-04] MEDS ORDERED: Furosemide 10 mg/mL 4 mL Inj IVPUSH SCH (02:00)
--- NOTE | 2017-02-04 05:51 | NUR ---
Urine Output/Respiratory Daley placed and IV lasix given per orders. Patient diuresed for greater than 1700 ml of pale yellow urine. Patient continues to maintain SpO2 96-98% on BiPAP at 35% FiO2. Coarse crackles and wheezes throughout the lung g[place], although no longer audible without a stethoscope. Continue to monitor.
[2017-02-04] MEDS ORDERED: 0.9% Sodium Chloride 1,000 ML IV SCH (08:55)
[2017-02-04] MEDS: Insulin GLARgine 100 Unit/mL Syringe SUBQ SCH (10:46)
--- NOTE | 2017-02-04 10:47 | DRSVH ---
PROCEDURE: X-RAY CHEST ONE VIEW, PORTABLE ([id number]) INDICATIONS: SOB TECHNIQUE: One view of the chest was acquired. COMPARISON: [facility], CR, XR CHEST 1VW (PORTABLE), 02/03/2017, 20:34. FINDINGS: Surgical changes and devices: Unchanged appearance. Lungs and pleura: No pleural effusions or pneumothorax. No interval change since yesterday with rede monstration of consolidation in the right lung base Mediastinum: Mediastinal contours appear normal. Heart size is normal. Bones and chest wall: No suspicious bony lesions. Overlying soft tissues appear unremarkable. IMPRESSION: Overall, stable examination since yesterday as detailed above Dictated by: Jesus Baker M.D. on 02/04/2017 at 10:44 Approved by: Jesus Baker M.D. on 02/04/2017 at 10:45
--- NOTE | 2017-02-04 12:00 | NUR ---
SpO2/ Increased work of breathing: p: patient was put on 4L oxymask to transfer off unit for chest CT I: RR increased to 30's, patient reported SOB, SPO2 high 80's. Pt was placed back on BiPAP 35% and RT was notified. E: patient now resting, RR 18-20, SpO2 low 90's. Continuous pulse ox to continue to monitor SpO2. Report was given to NOC RN to continue to monitor respiratory status and notify NOC MD for increased work of breathing/respiratory distress.
--- NOTE | 2017-02-04 12:21 | DRSVH ---
PROCEDURE: CT CHEST WITHOUT CONTRAST ([id number]) INDICATIONS: Dyspnea, cough, abnormal CXR TECHNIQUE: Noncontrast 5 mm thick sections acquired from the pulmonary apices to the posterior costophrenic angl es. 7 mm thick coronal and sagittal MIP reformats were then acquired. For radiation dose reduction, the following was used: automated exposure control, adjustment of mA and/or kV according to patient size. COMPARISON: [facility], CR, XR CHEST 1VW (PORTABLE), 02/04/2017, 9:26. [facility], CT, CT ANGIO CHEST PE, 01/30/2017, 16:06. FINDINGS: Image quality: Excellent. Lungs and pleura: Bilateral large areas of consolidation, most prominent within the right middle lo be, right lower lobe and left lung base. There is also involvement of the right upper lobe. There is surrounding groundglass attenuation. No pleural effusion or pneumothorax seen. There is possible righ t pleural thickening with calcifications, technically indeterminant and grossly unchanged since 7. Mediastinum: Heart size is enlarged. No pericardial effusion. No mediastinal adenopathy by size cr iteria. Thoracic aorta and central pulmonary arteries are normal in size. Esophagus is normal in ca liber. No hiatal hernia. Bones and chest wall: No suspicious bony lesions. No vertebral body compression fractures. No axil gilberto or supraclavicular adenopathy by size criteria. Abdomen: Visualized upper abdominal solid organs and bowel loops appear normal in the absence of con trast. IMPRESSION: Bilateral widespread areas of consolidation in keeping with multifocal pneumonia and/or a spiration. Please correlate clinically. Recommend continued followup with serial chest radiographs (3 month interval noncontrast chest CT) to document resolution and exclude underlying neoplasm, in part icular with respect to the previously described right basilar posterior pleural parenchymal focus, wi th calcifications. Dictated by: Jesus Baker M.D. on 02/04/2017 at 12:11 Approved by: Jesus Baker M.D. on 02/04/2017 at 12:20
--- NOTE | 2017-02-04 12:49 | NUR ---
Weakness Pt unable to lift arms right away with several promptings. Pt lifted arms after 4th attempt. pt unable to grab for cell or water. Encouraged pt to try, pt attempted twice. Transferred to CT scan via bed at approximately 1215.
--- NOTE | 2017-02-04 12:57 | PCM.PNMED ---
Subjective Date of Service Feb 04, 2017 Subjective Overnight: Patient was transferred to [facility] for increased Oxygen need and required BiPAP. Patient continues to maintain SpO2 96-98% on BiPAP at 35% FiO2. Daley placed. Patient diuresed for greater than 1700 ml of pale yellow urine on Lasix 40mg IV Q6H.. Low-grade fever with max temp of 38.1. Today: patient reports to feel ok. She is alert and oriented, but appears depressed and minimally verbal. She admits to persistent dry cough for the last 2 days and intermittent headache. She denies any CP, SOB (on the BiPAP), fever, chills, nausea, vomiting, or pain. Currently she does not have a PCP and plans to establish care at the residency clinic. Exam Vital Signs Vital Sign - Last Date Time Temp Pulse Resp B/P Pulse Ox O2 Delivery O2 Flow Rate FiO2 02/04/17 12:47 37.4 103 22 119/67 94 OxyMask 5.00 02/04/17 08:40 35 Intake and Output 02/03/17 02/03/17 02/04/17 Cumulative From/Thru 15:00 23:00 07:00 01/30/17 13:45 - 02/04/17 06:22 Intake Total 908 ml 1203 ml 442 ml 8259 ml Output Total 1750 ml 1750 ml Balance 908 ml 1203 ml -1308 ml 6509 ml Intake Oral 400 ml 400 ml 3760 ml IV Total 908 ml 803 ml 42 ml 4499 ml Output Urine Total 1750 ml 1750 ml # Voids 4 24 # Bowel Movements 1 0 1 Exam Constitutional: Middle-aged woman lying on her bed with BiPAP mask on, in no acute distress Head: Normocephalic atraumatic Eyes: PERRLA, Scleral Anicteric Mouth: Mouth Normal, Mucous Membranes Moist/[place] Neck: Supple, no Thyromegaly, trachea central. Chest: Diffuse coarse lung sounds with rales and rhonchi throughout. No wheezes noted. Cardiovascular: Regular rate and rhythm. No murmur noted. Abdomen: Soft, nondistended, nontender, bowel sounds present Extremities: Trace bilateral pedal edema Neuro: Alert and oriented 3, motor strength is intact bilaterally Psych: appears depressed, flat affect. IVs and Medications Medications Reviewed: Medications were reviewed in detail Lab and Diagnostics Result Diagram: 02/02/17 0510 02/02/17 0510 X-Rays, CTs and MRIs X-RAY CHEST ONE VIEW, PORTABLE 01/30/17 IMPRESSION: No acute cardiopulmonary disease. Dictated by: Yash Yu A Interpreted: Hanane Arnold MD on 01/30/2017 at 15:29 Transcribed by: SANDEEP on 01/30/2017 at 15:29 Approved by: Hanane Arnold MD, PhD on 01/30/2017 at 16:30 CT ANGIO CHEST PULMONARY EMBOLISM 01/30/17 IMPRESSION: 1. No acute process. 2. No pulmonary embolus. 3. Left pleural and lower lobe nodules as described above, largest of which measures 10 mm; followup is recommended as below. 4. Right basilar pleural-parenchymal opacity, presumably reflecting scarring secondary to prior infection/inflammation. Recommend attention to this region on followup imaging studies. Fleischner Society criteria for SOLID lung nodule followup. Nodule size (mm)Low-risk patientHigh-risk patient<6 (single or multiple)No routine followup.Optional CT at 12 months. 6-8 (single or multiple)CT at 6-12 months, then optional CT at 18-24 mo.CT at 6-12 months, then CT at 18-24 months. >8 (single)CT, PET-CT, or biopsy at 3 months. Same as for low-risk pts. >8 (multiple)CT at 3-6 months, then optional CT at 18-24 mo.CT at 3-6 months, then CT at 18-24 months. Recommendations do not apply to lung cancer screening, patients with immunosuppression, or patients with known primary cancer. Dictated by: Tobias Mayer M.D. on 01/30/2017 at 16:19 Approved by: Tobias Mayer M.D. on 01/30/2017 at 16:26 PROCEDURE: X-RAY CHEST, TWO VIEWS IMPRESSION: 1. Findings suspicious for multi-lobar aspiration or pneumonia. 2. Patchy opacities within the more aerated portions of lungs may be associated with fluid overload or multifocal pneumonia. Dictated by: Johana Altamirano M.D. on 02/03/2017 at 18:24 Approved by: Johana Altamirano M.D. on 02/03/2017 at 18:26 PROCEDURE: X-RAY CHEST ONE VIEW, PORTABLE IMPRESSION: Overall, stable examination since yesterday as detailed above Dictated by: Jesus Baker M.D. on 02/04/2017 at 10:44 Approved by: Jesus Baker M.D. on 02/04/2017 at 10:45 PROCEDURE: CT CHEST WITHOUT CONTRAST IMPRESSION: Bilateral widespread areas of consolidation in keeping with multifocal pneumonia and/or aspiration. Please correlate clinically. Recommend continued followup with serial chest radiographs (3 month interval noncontrast chest CT) to document resolution and exclude underlying neoplasm, in particular with respect to the previously described right basilar posterior pleural parenchymal focus, with calcifications. Dictated by: Jesus Baker M.D. on 02/04/2017 at 12:11 Approved by: Jesus Baker M.D. on 02/04/2017 at 12:20 Cardiac Echo Impressions Echo Interpretation Summary by Dr. Karli Decker on 01/31/2017: 1) Mildly dilated left ventricle with normal thickness and severely reduced systolic function (EF 25-30%). 2) Global hypokinesis that is significantly worse in the inferior wall and the septum. 3) Normal right ventricular size with mildly reduced function. 4) Posterior leaflet of the mitral valve is fixed. Mild mitral regurgitation present. 5) Mild to moderate tricuspid regurgitation. 6) Normal pulmonary artery pressures. 7) No prior Echo available for comparison. Findings are suggestive of ischemic cardiomyopathy. Assessment & Plan 61 year old female with Non hodgkin's lymphoma, a [place] filter placed due to multiple PE, coronary artery disease post CABG, diabetes, and hyperthyroidism, presents to the [facility] emergency department complaining of shortness of breathe and feelings of chest heaviness. 1. Acute hypoxemic and hypercapnic respiratory failure, present on admission, worsening. - Patient's respiratory status worsened since yesterday and required biPAP. - Multifactorial. Could be due to HCAP, chronic systolic CHF, or fluid overload. - ABG on 02/02 showed pH 7.310, pCO2 48.0, and pO2 81.9. Consider repeat ABG if patient desats on the BiPAP. - Continue BiPAP or supplemental O2. - Pulmonology consulted. Their time and recommendations are greatly appreciated. - Treat the underlying cause as below. 2. Suspect healthcare-acquired pneumonia, not present on admission, acute. -Patient has had persistent productive cough for 2 days, fever up to 38.1 last night, hypotension, and SOB that requires BiPAP. -CXR today shows no change from yesterday's CXR, which showed Patchy opacities within the more aerated portions of lungs may be associated with fluid overload or multifocal pneumonia. -CT Chest today shows Bilateral widespread areas of consolidation in keeping with multifocal pneumonia and/or aspiration. Patient will need follow up CT as outpatient in 3-6 months. -Procalcitonin up from 0.2 to 1.16. -No leukocytosis, but bandemia of 20. -Urine Legionella is negative. Urine strep is pending. -Blood culture pending. -Given her several drug allergies, including PCN, Sulfa, and Cephalosporins, will start her on Levaquin 750mg IV daily. This was discussed with the pharmacist, Karolyn, and seems to be the most reasonable at this point. -Consider consulting ID for antibiotic guidance. -MRSA screen pending. Will hold off on Vanco given her worsening WILIAM. - Judicious use of IVF given poor systolic function. IVF with NS @75mls/hr. Consider IVF bolus as needed for hypotension. -Close monitoring. 3. Acute Chest pain. Present on admission. Resolved. - Acute coronary syndrome ruled out with several negative Trop - Pulmonary embolism ruled out with normal CT chest. - Echo 01/31/17: EF 25-30% and "Global hypokinesis that is significantly worse in the inferior wall and the septum" - Abnormal nuclear cardiac stress study on 01/31/17 - Cardiology consulted. No acute intervention at this time. - Patient denies any chest pain today. - Continue Telemetry 4. Acute Kidney injury. Present on admission. Active. - Creatinine is worsening (1.63 today) - Likely pre renal from hypovolemia and overdiuresis. - Hold Lasix and Metoprolol - gentle IVF with NS @ 75mls/hr for now. - Avoid nephrotoxic meds. - Strict monitoring of I/O 5. Diabetes type 2, chronic, uncontrolled. - Poor controlled with report of non compliance with Metformin. - HgA1C 11 suggests that oral agents will likely not be adequate to treat her diabetes as outpatient - hold Metformin for now - Start Lantus 10 units daily today. Will continue to monitor fasting BG and will increase the insulin gradually. - medium Lispro correction algorithm 6. Hypothyroidism, chronic, uncontrolled. - s/p total thyroidectomy from h/o thyroid cancer. TSH elevated (TSH 76, Free T4 0.3) due to non compliance with medications - c/w home Synthroid at 325mcg daily - repeat TSH in 4-6 weeks as out patient 7. Chronic systolic heart failure. Active. - Echo on 01/31 showed severely reduced systolic function (EF 25-30%). Global hypokinesis that is significantly worse in the inferior wall and the septum. - Findings are suggestive of ischemic cardiomyopathy. - Patient is dypsnic, but likely secondary to HCAP as above. No significant peripheral edema or JVD noted on exam. - Hold Lasix and Lisinopril given WILIAM as noted above. - Will be careful with IVF to not overload the patient. 8. Severe mitral regurgitation status post valvular repair, ASD with repair. Stable. - No clinical evidence of fluid overload - f/u w/ cardiology consult 9. Non Hodgkin Lymphoma s/p stem cell transplant in 2001. - presumed stable at this time. - follow up with Oncology for surveillance 10. Acute hypomagnesemia. present on admission. Improved. - replete as needed and continue to monitor Mg. Dispo: 2-3 days pending improvement in renal function and respiratory status. Assessment and plan regarding acute problem: Patient with increasing respiratory distress and some hypercapnia along with hypoxia. After review of chart patient has definitely had I is much greater than O's. So suspect acute systolic congestive heart failure. Echo reveals poor systolic function with global hypokinesis. We will go ahead and treat with IV Lasix, topical Nitropaste, We will also check serial cardiac enzymes BNP Check 12-lead EKG and check stat portable chest x-ray Patient does not have elevated white count or does not have fevers or chills so doubt pneumonia is playing a part. Pain Evaluation: Adequate Pain Control VTE Prophylaxis: Sub-Q Heparin (Unfractionated) VTE Mechanical Devices: Intermittant Pneumatic CD Resuscitation Status: CPR: Attempt Resuscitation Attending Statement The patient was seen and examined together with Dr. Burr on 02/04/2017 and I agree with the history, exam and plan as outlined in the note above. . Daysi Burr DO Feb 04, 2017 12:57 Rashid Hernández MD Feb 06, 2017 09:13
[2017-02-04 13:04] LABS: Mean Corpuscular Hemoglobin 30.4 pg (27.0-35.0); Platelet Count 202 bil/L (150-400)
--- NOTE | 2017-02-04 13:21 | NUR ---
Off floor to CT Pt off floor to CT scan. 2 PA.
[2017-02-04 13:25] LABS: BASOPHILS % (AUTO) 0 % (0-3); EOSINOPHILS % (AUTO) 1 % (0-5); MONOCYTES % (AUTO) 14 % (4-12); NEUTROPHILS % (AUTO) 48 % (40-74)
[2017-02-04] MEDS: MetoCLOpramide 5 mg/mL 2 mL Inj IVPUSH PRN ×2 (13:25→19:45)
[2017-02-04] MEDS: Insulin LISPRO High-Dose Scale SUBQ PRN ×3 (13:32→20:54)
[2017-02-04 13:44] LABS: Magnesium 1.3 mg/dL (1.6-2.6)
--- NOTE | 2017-02-04 13:50 | NUR ---
1200 - pt placed on [address] Pt. placed back on Bipap 1300 per nursing due to increased WOB, decreased O2 sats on 5 lpm Oxymask. Pt. Bipap checked 1330. pt. sleeping. Resting comfortably on Bipap.
[2017-02-04] MEDS: levoFLOXacin Inj 750 MG in IV Premix 1 EACH IV SCH (15:08)
[2017-02-04] MEDS ORDERED: Albuterol 2.5 mg/3 mL Inhalation Solution NEB ONE ×3 (15:15→15:30)
--- NOTE | 2017-02-04 15:37 | PCM.CHPMED ---
Subjective Date of Service: Feb 04, 2017 Provider requesting consult: Rashid Hernández MD Primary Physician: Admitting Physician: Franco Sarmiento MD Primary Care Physician: Tracey Burr MD Attending Physician: Franco Sarmiento MD Chief Complaint: Chief Complaint: Shortness of breath History of Present Illness: Pulmonology consult: Attending physician Dr. Sotero Moreno, requesting provider Dr. Hernández. Ms. Brothers is a 61 -year-old female with past medical history non-Hodgkin's lymphoma, multiple PE resulting in a Rudy filter placement, CAD, CHF ( echo showed EF of 25-35% with global hypokinesis), Severe MR s/p annuloplasty ( 03/2014), ASD repair, CVA, DM, hyperthyroidism initially presented to ED secondary to chest heaviness and SOB on 01/30/2017. Chest pain has since resolved Pulmonology consult requested 02/04/2017 secondary to increasing shortness of breath and imaging studies that show consolidation of the possibility of pneumonia or aspiration. Pt states that she had stopped taking all of her home medications 3 months prior to admission secondary to adverse reaction (nausea). After stopping medication she noticed increased weight gain with peripheral edema and increased dyspnea. Patient had been taking care of her granddaughter who had been sick with a respiratory type infection the week prior to her admission and she endorses that she had began to have similar symptoms just prior to her admission which she feels has been exacerbated over this hospital course. Currently patient denies any active chest pain though still endorses shortness of breath and dyspnea while lying supine. Denies headache, denies abdominal pain denies change in bowel or bladder habits. Endorses throat discomfort "dry mouth dry throat". PMH Past Medical History CAD HYPOTHYROIDISM DVT PE MULTIPLE CVA ( RIGHT SIDED) SEVERE MR/ SP REPAIR POST OP AFIB ASD (REPAIRED) HYPERLIPIDEMIA NON HODGKINS LYMPHOMA CHF THYROID CANCER SPINAL STENOSIS HYPERTENSION Bedside Blood Glucose: 246 Surgical History MITRAL VALVE REPAIR, CALDERÓN RENAY ANNULOPLASTY PFO REPAIR HERNIA REPAIR L KNEE REPLACEMENT OOPHORECTOMY CHOLECYSTECTOMY APPENDECTOMY PREVIOUS HEART CATH. THYROIDECTOMY -86 Home Medications From patient list Atorvastatin 40 mg HS Lisinopril 5 mg daily Metoprolol 25 mg daily Citalopram 40 mg daily Ropinirole 0.5 mg HS PRN Oxycodone 5 mg tid PRN Lasix 40 mg daily Levothyroxine 325 mcg daily Metformin 1000 mg bid Allergies: Coded Allergies: terfenadine (Verified Allergy, Mild, 01/30/17) Cephalosporins (Verified Allergy, Unknown, 1st generation, 01/30/17) Penicillins (Verified Allergy, Unknown, 01/30/17) Sulfa (Sulfonamide Antibiotics) (Verified Allergy, Unknown, 01/30/17) erythromycin base (Verified Allergy, Unknown, 01/30/17) ferrous sulfate (Verified Allergy, Unknown, 01/30/17) gabapentin (Verified Allergy, Unknown, 01/30/17) hydrocodone (Verified Allergy, Unknown, 01/30/17) loracarbef (Verified Allergy, Unknown, 01/30/17) loratadine (Verified Allergy, Unknown, 01/30/17) meperidine (Verified Allergy, Unknown, 01/30/17) salsalate (Verified Allergy, Unknown, 01/30/17) shellfish derived (Verified Allergy, Unknown, 01/30/17) Uncoded Allergies: ANTIDEPRESSANTS (Allergy, Unknown, unsure which, 04/09/16) Family History Family History Patient does not know her biological father Mother had [place] Social History 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 [employer] officerHx Alcohol Use: NoHx Substance Use: No Hx Tobacco Use: No Smoking Status: Never Smoker Living Arrangement: with Family Exam Vital Signs Vital Sign - Last Date Time Temp Pulse Resp B/P Pulse Ox O2 Delivery O2 Flow Rate FiO2 02/04/17 13:30 103 24 93 35 02/04/17 12:56 CPAP/BIPAP 02/04/17 12:47 37.4 119/67 5.00 Intake and Output 02/03/17 02/03/17 02/04/17 Cumulative From/Thru 15:00 23:00 07:00 01/30/17 13:45 - 02/04/17 06:22 Intake Total 908 ml 1203 ml 442 ml 8259 ml Output Total 1750 ml 1750 ml Balance 908 ml 1203 ml -1308 ml 6509 ml Intake Oral 400 ml 400 ml 3760 ml IV Total 908 ml 803 ml 42 ml 4499 ml Output Urine Total 1750 ml 1750 ml # Voids 4 24 # Bowel Movements 1 0 1 Additional Information: General: Awake and alert sitting up in bed with BiPAP mask. HEENT: Normocephalic, atraumatic. External ears without defect. Pupils equal, round, and reactive to light and accommodation. Anicteric sclerae, moist conjunctivae, and no lid lag. Dry oral mucosa Neck: Supple with full range of motion. No jugular venous distension. No bruits. Cardiovascular: Regular rate and rhythm with no murmurs, rubs, or gallops appreciated Pulmonary: Decreased air movement all lung gipson, inspiratory and expiratory wheezes crackles heard in lower lung gipson bilaterally no use of accessory muscle usage. BiPAP in place Abdomen: Soft, nontender, nondistended. No hepatosplenomegaly or masses appreciated. Extremities: No cyanosis, edema, or lymphadenopathy appreciated. Neurological: Cranial nerves grossly intact. Psychiatric: Normal mood and affect. Alert and oriented to person, place, and time. Lab and Diagnostics Result Diagram: 02/04/17 1236 02/04/17 1236 Assessment & Plan Assessment 69-year-old female with multiple comorbidities, most pertinent for current respiratory symptoms are a distant history of non-Hodgkin's lymphoma requiring 2 surgeries (reportedly), multiple cardiac comorbidities noncompliance with outpatient medications. Patient was admitted for chest pain rule out, pulmonology consult requested for increased work of breathing/dyspnea now requiring BiPAP as well as progressive chest imaging showing increasing consolidation. The possibility that current symptoms are related to pneumonia remains quite high. Patient has a distant history of non-Hodgkin's lymphoma which has required multiple surgeries and is unknown if she has been on immunosuppressive therapy or not. 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 No mention was made of HIV status. White count has remained within normal limits during hospital stay currently at 6.0 from a peak of 9.9, she has had a few temperature spikes, highest at 38.1. Most recently her pro-calcitonin has gone up from 0.2 on 02/02/2017 2 1.16 on 02/04/2017. Prior to this hospitalization she endorses a recent sick contact with her granddaughter suffering from a similar respiratory illness, and reportedly been seen by a physician for this though patient does not know what diagnosis her granddaughter received or if any medications were prescribed. 1.To the current regimen of Levaquin we are adding doxycycline to cover for gram positives and atypicals as well as atovaquone for the possibility of PCP with a history of sm cell transplant. We are also adding micafungin for fungal disease. Most importantly we have asked for the prior records from [facility] where patient received her stem cell transplant in 2001 2. We have also ordered appropriate cultures and serologies. We have given patient albuterol as well as expectorants for sputum production. Problems: Pain Evaluation: Adequate Pain Control VTE Prophylaxis: Sub-Q Heparin (Unfractionated) VTE Mechanical Devices: Intermittant Pneumatic CD Resuscitation Status: CPR: Attempt Resuscitation Attending Statement The patient was seen and examined together with Dr. Benz on 02/04/2017 and I agree with the history, exam and plan as outlined in the note above. NADJA BENZ DO Feb 04, 2017 15:37 Sotero Moreno MD Feb 08, 2017 11:09 Since her symptoms were aggravated by walking and her dyspnea aggravated by lying down. Patient came to the hospital for further evaluation. Patient's cardiac history is aggravated by lack of compliance with medications possibly related to ongoing depression. Outside hospital records not available at time of this dictation. Patient has really reduced systolic function on echocardiogram EF 25-30%, with global hypokinesis that is significantly worse in the inferior wall and septum. Findings are suggestive of ischemic cardiomyopathy. Her Lexiscan nuclear medicine stress test showed normal pharmacological response to Lexiscan without chest pain symptoms or diagnostic electrocardiographic changes. Dr. Price did not appreciate any reversible perfusion abnormality that would suggest ischemia. There appeared to be a fixed moderately severe hypoperfusion involving the inferior wall consistent with probable nontransmural infarction. CT angiogram was negative for PE or acute process. #Coronary artery disease- chest pain per patient the last 24-48 hours. Lexiscan. Be negative for reversible ischemia. Her compliance with medications # ischemic cardiomyopathy- severely reduced LVEF (25-30%) with global hypokinesis significantly worse in the inferior wall and septum. She does not appear to be volume overloaded at this time. #Hyperlipidemia-resume statin medications #Diabetes-compliance with medications, will need follow-up with primary care to reestablish control after hospitalization. # Hypothyroidism-status post thyroidectomy secondary to thyroid cancer, poor control secondary to noncompliance with medications which have been restarted. Close follow-up as an outpatient and recommended. #Mitral valve disease- is post Calderón Renay annuplasty; stable #Acute febrile respiratory illness- patient is wheezy and feeling short of breath. Management per hospitalist #hyponatremia-further workup and management per hospitalist #WILIAM-management per hospitalist Problems: Pain Evaluation: Adequate Pain Control VTE Prophylaxis: Sub-Q Heparin (Unfractionated) VTE Mechanical Devices: Intermittant Pneumatic CD Resuscitation Status: CPR: Attempt Resuscitation NADJA BENZ DO Feb 04, 2017 15:37
--- NOTE | 2017-02-04 15:48 | NUR ---
[facility] Signed
[2017-02-04] MEDS ORDERED: MetoCLOpramide 5 mg/mL 2 mL Inj IVPUSH PRN (20:30)
[2017-02-04] MEDS: Doxycycline Inj 100 MG in Dextrose 5% Minibag Plus 100 ML IV SCH (20:45)
[2017-02-04] MEDS: ATOVAQUONE 750 MG/5 ML PO SCH (20:48)
[2017-02-05] VITALS (12 sets, daily range): BP systolic 90–121; BP diastolic 61–74; PULSE 88–103; RESP 0–22; O2SAT 95–100
[2017-02-05] MEDS: Sodium Chloride LOK Flush 10 mL Syringe IVFLUSH SCH ×3 (00:15→15:01)
[2017-02-05] MEDS: Heparin 5,000 Unit/mL Inj SUBQ SCH ×3 (01:04→16:30)
[2017-02-05 06:02] LABS: Magnesium 1.3 mg/dL (1.6-2.6)
[2017-02-05] MEDS: Doxycycline Inj 100 MG in Dextrose 5% Minibag Plus 100 ML IV SCH ×2 (07:29→21:04)
[2017-02-05] MEDS: Insulin GLARgine 100 Unit/mL Syringe SUBQ SCH (07:30)
[2017-02-05] MEDS: Insulin LISPRO High-Dose Scale SUBQ PRN ×3 (07:31→17:35)
[2017-02-05] MEDS: ATOVAQUONE 750 MG/5 ML PO SCH (07:31)
--- NOTE | 2017-02-05 08:50 | DRSVH ---
PROCEDURE: X-RAY CHEST ONE VIEW, PORTABLE ([id number]) INDICATIONS: pulmonary infiltrate TECHNIQUE: One view of the chest was acquired. COMPARISON: [facility], CR, XR CHEST 1VW (PORTABLE), 02/04/2017, 9:26. FINDINGS: Surgical changes and devices: Surgical clips at the thoracic inlet and sternotomy wires are unchanged . Lungs and pleura: Consolidative patchy pulmonary opacities are redemonstrated within the right mid an d lower lung similar in extent to the prior study. Mediastinum: Mediastinal contours appear normal. Heart size is normal. Bones and chest wall: No suspicious bony lesions. Overlying soft tissues appear unremarkable. IMPRESSION: Persistent pulmonary radiopacities suspicious for pneumonia. Dictated by: Johana Altamirano M.D. on 02/05/2017 at 8:44 Approved by: Johana Altamirano M.D. on 02/05/2017 at 8:48
[2017-02-05] MEDS: Micafungin Inj 100 MG in 0.9% Sodium Chloride 100 ML IV SCH (10:28)
[2017-02-05] MEDS ORDERED: Potassium Chloride Oral 20 mEq SR Tab(K 3 - 3.7 & Creat < 2) PO ONE (11:25)
[2017-02-05 11:47] LABS: BASOPHILS % (AUTO) 0.3 % (0-3); EOSINOPHILS % (AUTO) 0.6 % (0-5); MONOCYTES % (AUTO) 13.5 % (4-12); Mean Corpuscular Volume 96.6 fL (81-100); NEUTROPHILS % (AUTO) 70.6 % (40-74); Platelet Count 194 bil/L (150-400)
[2017-02-05] MEDS ORDERED: Magnesium Sulf 4 Gm/100 mL H2O 4 GM in IV Premix 1 EACH IV ONE (13:55)
--- NOTE | 2017-02-05 13:59 | PCM.PNMED ---
Subjective Date of Service Feb 05, 2017 Subjective Patient reports feeling better. She continues to notice wheezing and shortness of breath. She was having diarrhea overnight that has improved over the course of the morning with no additional bouts in several hours. She denies nausea, vomiting, fever, chills. She continues to have a productive cough. Overnight, the patient had diarrhea as previously stated. No other events noting in nursing documentation. Exam Vital Signs Vital Sign - Last Date Time Temp Pulse Resp B/P Pulse Ox O2 Delivery O2 Flow Rate FiO2 02/05/17 11:53 37.0 95 21 98/64 96 OxyMask 5.00 02/05/17 04:34 35 Intake and Output 02/04/17 02/04/17 02/05/17 Cumulative From/Thru 15:00 23:00 07:00 01/30/17 13:45 - 02/05/17 05:03 Intake Total 520 ml 100 ml 8879 ml Output Total 800 ml 500 ml 3050 ml Balance -280 ml -400 ml 5829 ml Intake Oral 100 ml 100 ml 3960 ml IV Total 420 ml 4919 ml Output Urine Total 800 ml 500 ml 3050 ml # Voids 24 # Bowel Movements 0 1 Exam Constitutional: Middle-aged woman lying on her bed with oxymask on, in no acute distress Head: Normocephalic atraumatic Eyes: PERRLA, EOMI, Scleral Anicteric Mouth: Mouth Normal, Mucous Membranes Moist/[place] Neck: Supple, no Thyromegaly, trachea central. No JVD noted Chest: Diffuse coarse lung sounds with wheezes heard loudly throughout. Cardiovascular: Regular rate and rhythm. No murmur noted. Abdomen: Soft, nondistended, nontender, bowel sounds present Extremities: Mild bilateral pedal edema Neuro: Alert and oriented 3, motor strength is intact bilaterally, normal speech Psych: appears depressed, flat affect. IVs and Medications Medications Reviewed: Medications were reviewed in detail Lab and Diagnostics Result Diagram: 02/04/17 1236 02/05/17 0456 X-Rays, CTs and MRIs X-RAY CHEST ONE VIEW, PORTABLE 01/30/17 IMPRESSION: No acute cardiopulmonary disease. Dictated by: Yash STEPHEN Interpreted: Hanane Arnold MD on 01/30/2017 at 15:29 Transcribed by: SANDEEP on 01/30/2017 at 15:29 Approved by: Hanane Arnold MD, PhD on 01/30/2017 at 16:30 CT ANGIO CHEST PULMONARY EMBOLISM 01/30/17 IMPRESSION: 1. No acute process. 2. No pulmonary embolus. 3. Left pleural and lower lobe nodules as described above, largest of which measures 10 mm; followup is recommended as below. 4. Right basilar pleural-parenchymal opacity, presumably reflecting scarring secondary to prior infection/inflammation. Recommend attention to this region on followup imaging studies. Fleischner Society criteria for SOLID lung nodule followup. Nodule size (mm)Low-risk patientHigh-risk patient<6 (single or multiple)No routine followup.Optional CT at 12 months. 6-8 (single or multiple)CT at 6-12 months, then optional CT at 18-24 mo.CT at 6-12 months, then CT at 18-24 months. >8 (single)CT, PET-CT, or biopsy at 3 months. Same as for low-risk pts. >8 (multiple)CT at 3-6 months, then optional CT at 18-24 mo.CT at 3-6 months, then CT at 18-24 months. Recommendations do not apply to lung cancer screening, patients with immunosuppression, or patients with known primary cancer. Dictated by: Tobias Mayer M.D. on 01/30/2017 at 16:19 Approved by: Tobias Mayer M.D. on 01/30/2017 at 16:26 PROCEDURE: X-RAY CHEST, TWO VIEWS IMPRESSION: 1. Findings suspicious for multi-lobar aspiration or pneumonia. 2. Patchy opacities within the more aerated portions of lungs may be associated with fluid overload or multifocal pneumonia. Dictated by: Johana Altamirano M.D. on 02/03/2017 at 18:24 Approved by: Johana Altamirano M.D. on 02/03/2017 at 18:26 PROCEDURE: X-RAY CHEST ONE VIEW, PORTABLE IMPRESSION: Overall, stable examination since yesterday as detailed above Dictated by: Jesus Baker M.D. on 02/04/2017 at 10:44 Approved by: Jesus Baker M.D. on 02/04/2017 at 10:45 PROCEDURE: CT CHEST WITHOUT CONTRAST IMPRESSION: Bilateral widespread areas of consolidation in keeping with multifocal pneumonia and/or aspiration. Please correlate clinically. Recommend continued followup with serial chest radiographs (3 month interval noncontrast chest CT) to document resolution and exclude underlying neoplasm, in particular with respect to the previously described right basilar posterior pleural parenchymal focus, with calcifications. Dictated by: Jesus Baker M.D. on 02/04/2017 at 12:11 Approved by: Jesus Baker M.D. on 02/04/2017 at 12:20 Cardiac Echo Impressions Echo Interpretation Summary by Dr. Karli Decker on 01/31/2017: 1) Mildly dilated left ventricle with normal thickness and severely reduced systolic function (EF 25-30%). 2) Global hypokinesis that is significantly worse in the inferior wall and the septum. 3) Normal right ventricular size with mildly reduced function. 4) Posterior leaflet of the mitral valve is fixed. Mild mitral regurgitation present. 5) Mild to moderate tricuspid regurgitation. 6) Normal pulmonary artery pressures. 7) No prior Echo available for comparison. Findings are suggestive of ischemic cardiomyopathy. Assessment & Plan 61 year old female with Non hodgkin's lymphoma, a Rudy filter placed due to multiple PE, coronary artery disease post CABG, diabetes, and hyperthyroidism, presents to the [facility] emergency department complaining of shortness of breathe and feelings of chest heaviness. Hospital day # 7. 1. Acute hypoxemic and hypercapnic respiratory failure, present on admission, improving today. - Multifactorial. Could be due to HCAP or fluid overload secondary to CHF. - Patient required BiPAP yesterday and overnight but this AM is tolerating oxymask well. Keep BiPAP available in room as needed. - ABG PRN to assess need for BiPAP, altered mental status, and/or desaturations. - Supplemental O2 goals 92-96%. - Albuterol nebulizers PRN. - Dr. Moreno of pulmonology consulted and we appreciate his input. - Treat the underlying cause(s) as below. 2. Acute on chronic systolic heart failure, present on admission, improved. - Echo on 01/31/17 showed severely reduced systolic function (EF 25-30%). Global hypokinesis that is significantly worse in the inferior wall and the septum. - Findings are suggestive of ischemic cardiomyopathy. - IV fluids stopped. Encourage PO hydration as tolerated. - Concern for fluid overload status so IV Lasix given starting 02/03/17. - IV Lasix stopped at this time as patient having diarrhea and do not want her to become overly fluid depleted. Will monitor for need for additional diuresis. 3. Acute Chest pain. Present on admission. Resolved. - Cardiology studies reassuring so no cardiac intervention needed at this time. - Patient asymptomatic. - Continue telemetry. 4. Acute Kidney injury. Present on admission. Active. - Creatinine stable over the last few days despite both fluids and then diuresis. - Patient with reports of diarrhea so will encourage PO hydration at this time. - Continue to monitor BMP. - Avoid nephrotoxic meds. 5. Suspected healthcare-acquired pneumonia, not present on admission, acute. - Due to history of stem cell transplant concern for pneumocystis pneumonia. Atovaquone started 02/04/17. - Concern for possible fungal lung disease based on history acquired by pulmonology. Micafungin started 02/04/17. - Levaquin and doxycycline for antibiotic coverage. - Await cultures and serologies. - Dr. Moreno is following and we appreciate his input. - Consider consultation with Dr. Chen on Monday. 6. Diabetes type 2, chronic, uncontrolled. - Poor controlled with report of non compliance with Metformin. - HgA1C 11 suggests that oral agents will likely not be adequate to treat her diabetes as outpatient - Continue to hold Metformin for now. - Increase Lantus to 12 units daily today. Will continue to monitor fasting BG and will increase the insulin gradually. - Medium Lispro correction algorithm available PRN. 7. Hypothyroidism, chronic, uncontrolled. - S/p total thyroidectomy from h/o thyroid cancer. TSH elevated (TSH 76, Free T4 0.3) due to non compliance with medications. - Continue Synthroid at 325mcg daily. - Repeat TSH in 4-6 weeks as outpatient. 8. Severe mitral regurgitation status post valvular repair, ASD with repair. Stable. - Continue outpatient follow ups for this particular issue. 9. Non Hodgkin Lymphoma s/p stem cell transplant in 2001, presume in remission. - Follow up with outpatient Oncology for surveillance. 10. Acute hypomagnesemia. present on admission, ongoing. - Continue to monitor magnesium and replete as needed. - Antiemetic available PRN. - Bowel regimen available PRN. - Antacid available PRN. Dispo: 2-3 days pending improvement in renal function and respiratory status. GI Prophylaxis: Not indicated VTE Prophylaxis: Sub-Q Heparin (Unfractionated) Resuscitation Status: CPR: Attempt Resuscitation Attending Statement Patient was discovered to have metapneumovirus, which is the likely cause of her respiratory distress. The patient was seen and examined together with Dr. Vale on 02/05/2017 and I agree with the history, exam and plan as outlined in the note above. . Tamy Vale DO Feb 05, 2017 13:59 Rashid Hernández MD Feb 06, 2017 09:16 Dispo: 2-3 days pending improvement in renal function and respiratory status. Assessment and plan regarding acute problem: Patient with increasing respiratory distress and some hypercapnia along with hypoxia. After review of chart patient has definitely had I is much greater than O's. So suspect acute systolic congestive heart failure. Echo reveals poor systolic function with global hypokinesis. We will go ahead and treat with IV Lasix, topical Nitropaste, We will also check serial cardiac enzymes BNP Check 12-lead EKG and check stat portable chest x-ray Patient does not have elevated white count or does not have fevers or chills so doubt pneumonia is playing a part. VTE Prophylaxis: Sub-Q Heparin (Unfractionated) VTE Mechanical Devices: Intermittant Pneumatic CD Resuscitation Status: CPR: Attempt Resuscitation Tamy Vale DO Feb 05, 2017 13:59
[2017-02-05] MEDS ORDERED: Albuterol 2.5 mg/3 mL Inhalation Solution NEB PRN (14:10)
--- NOTE | 2017-02-05 14:12 | NUR ---
Social Work: Continued Discharge Planning D: Pt discussed in am rounds. Pt is not medically stable for discharge at this time and is expected to require at least 2 more days of hospitalization. Pt currently being diuresed. ALTERATION TAILOR met with pt at bedside to discuss discharge planning. Pt states she has been much stronger today and has been up to the bathroom I. ALTERATION TAILOR confirmed this with bedside RN. Pt denies any home needs, including HH, and states that her daughter will likely transport her home when ready. A: [place] P: Anticipate pt to discharge home when medically stable; ALTERATION TAILOR to continue to follow pt's clinical course . Florence Vinson MSW
[2017-02-05] MEDS: levoFLOXacin Inj 750 MG in IV Premix 1 EACH IV SCH (15:01)
[2017-02-05] MEDS: Albuterol 2.5 mg/3 mL Inhalation Solution NEB SCH ×2 (15:56→20:16)
--- NOTE | 2017-02-05 16:20 | PROG NOTE ---
[address] [address] PROGRESS NOTE PATIENT: MARZENA METZ : 1955 MR#: [id number] ADMIT: 01/30/2017 JOB ID: [id number] DATE: 02/05/2017 PULMONARY FOLLOWUP NOTE: Problem #1, right-sided pulmonary infiltrates. SUBJECTIVE: Breathing more comfortably. Some cough. Brought up a bit of phlegm this morning, but it was dark and she did note get a look at it. No pleuritic pain. Finds that after eating she gets a bit more short of breath, but she believes there was some abdominal bloating. No chest or abdominal pain. OBJECTIVE: Temperature 37, pulse 95. Respiratory rate 21, blood pressure 98/64, O2 sat on 4 L is 96%. I and O shows 0.9 L in, 2.5 L out. General appearance: Comfortable appearing. Lying flat. Speaking easily. Much more awake, alert, and coherent today. Much better cognitive function. States she does not recall much of yesterday. Mouth: Some whitish sputum on the oropharynx. Not Violeta. Chest: Diffuse inspiratory and expiratory wheezes. Much of it seems to be coming from the oropharyngeal airway. No use of accessory muscles. Heart: Regular rhythm. Heart tones normal. Abdomen soft. Nondistended. Nontender. Bowel tones present. Extremities: No pretibial edema. LABORATORY DATA: Shows a white count of 7200, with 70 polymorphonuclears, no bands (23% band neutrophils of yesterday has miraculously disappeared), 14 lymphocytes, 13 monocytes. Hemoglobin 7.9 and slightly low. Was 9.1 yesterday. Platelet count 194,000 and stable. Sodium 137, potassium 3.2, chloride 97, CO2 23, BUN 30, creatinine 1.6. Lactic acid 1.1. Calcium 8.3 with an albumin of 3.1. Magnesium 1.3. Total bilirubin 0.6. AST 19, ALT 14, alkaline phosphatase 58. Procalcitonin 1.06. HIV nonreactive. Urine for Legionella antigen negative. Sputum for Gram stain, C and S shows moderate polys. A few mixed elisa. Viral respiratory panel positive for metapneumovirus. Urine for Strep pneumoniae antigen is negative. Review of data from [facility] indicates the patient had thyroid cancer in 1990 and underwent a complete thyroidectomy. Subsequently, was found to have large intermediate grade B-cell non-Hodgkin lymphoma, failing initial therapy. No evidence of chest involvement, with much of the involvement below the diaphragm. Ultimately, underwent chemotherapy after failing RICE therapy for recurrence. There was a concern that there was some involvement of the lung as well as abdomen. She therefore underwent chemotherapy, I believe with CHOP, followed by total-body irradiation and autologous peripheral stem cell transplant. At discharge from [facility] in 2001, she was taking dapsone for PCP prophylaxis, fluconazole for moderate oral thrush, and acyclovir. Currently, she is taking none. It should be noted that engraftment of her stem cell transplant was complete on day 24. Patient, therefore, does not seem to be at any significant degree of immunosuppression and not on any immunosuppressive therapy, ostensibly having regained her cell and humoral immunity. Concern yesterday was with a person who is status post stem cell transplant with 23% bands. With the absence of the bandemia, marked symptomatic improvement, metapneumovirus found on viral respiratory panel, and a syndrome consistent with same, I think we can start backing off on antibiotics. Certainly, the atovaquone can be discontinued. Will continue with doxycycline, Levaquin, and micafungin for another day or so, at least until we can get more erudite evaluation from our ID team. The stem cell transplantation appears that it should not be associated with continued immunosuppression. PLAN: 1. Discontinue atovaquone. 2. Await pending serologies and sputum studies. 3. Repeat CBC with differential to reassess differential. CMP, mag, phos and a procalcitonin.
[2017-02-05] MEDS: LORazepam 0.5 mg Tablet PO PRN (19:03)
--- NOTE | 2017-02-05 19:52 | NUR ---
increased dyspnea, placed back on bipap patient reports increased work of breathing breath sounds exp wheezes, coarse. moderately decreased in bases. accessory muscle use. difficulty talking. hr 100. sats 95% 5 liters oxymask. notified RT. placed back on bipap 35% fi02. no change to settings. patient now with decreased work of breathing. sats 98%. hr 92
[2017-02-06] VITALS (15 sets, daily range): BP systolic 102–129; BP diastolic 60–80; PULSE 90–101; RESP 16–23; O2SAT 95–100
[2017-02-06] MEDS: Heparin 5,000 Unit/mL Inj SUBQ SCH ×4 (00:53→23:37)
[2017-02-06] MEDS: Sodium Chloride LOK Flush 10 mL Syringe IVFLUSH SCH ×3 (00:54→16:30)
--- NOTE | 2017-02-06 05:09 | NUR ---
activity patient tolerated bipap without difficutly. bedside pule oximetry. sats 99% no complaints. care ongoing.
[2017-02-06 05:28] LABS: BASOPHILS % (AUTO) 0.4 % (0-3); EOSINOPHILS % (AUTO) 0.9 % (0-5); MONOCYTES % (AUTO) 11.9 % (4-12); Mean Corpuscular Hemoglobin 30.7 pg (27.0-35.0); Mean Corpuscular Volume 96.1 fL (81-100); NEUTROPHILS % (AUTO) 70.6 % (40-74); Platelet Count 214 bil/L (150-400)
[2017-02-06 06:00] LABS: Magnesium 2.2 mg/dL (1.6-2.6); Phosphorus 1.9 mg/dL (2.5-4.9)
[2017-02-06] MEDS: Albuterol 2.5 mg/3 mL Inhalation Solution NEB SCH ×4 (07:42→21:03)
[2017-02-06] MEDS: Doxycycline Inj 100 MG in Dextrose 5% Minibag Plus 100 ML IV SCH (08:14)
[2017-02-06] MEDS ORDERED: Insulin GLARgine 100 Unit/mL Syringe SUBQ SCH (08:30)
[2017-02-06] MEDS: Micafungin Inj 100 MG in 0.9% Sodium Chloride 100 ML IV SCH (12:23)
--- NOTE | 2017-02-06 14:09 | PCM.PNMED ---
Subjective Date of Service Feb 06, 2017 Subjective Overnight: early evening, patient reports increased work of breathing and was placed back on bipap 35% fi02, which improved her symptoms. She tolerated bipap without difficutly. bedside pule oximetry. Sats 99% no complaints. She had on loose stool yesterday. No other event. Today: Patient reports to feel better. She is satting well with Oxygen mask, SpO2 of 97% on 4L. She still has persistent cough, but could not spit up any phlegm. She has poor appetite/PO intake. She also admits to cold intolerance, fatigue, nausea, chronic constipation, and headache (while on the BiPAP), but denies CP or abdominal pain. No more diarrhea since yesterday. Exam Vital Signs Vital Sign - Last Date Time Temp Pulse Resp B/P Pulse Ox O2 Delivery O2 Flow Rate FiO2 02/06/17 08:01 Supplement Oxygen 02/06/17 08:01 36.7 97 16 116/67 98 5.00 02/06/17 07:42 35 Intake and Output 02/05/17 02/05/17 02/06/17 Cumulative From/Thru 15:00 23:00 07:00 01/30/17 13:45 - 02/06/17 06:05 Intake Total 210 ml 841 ml 810 ml 14129 ml Output Total 800 ml 600 ml 4450 ml Balance 210 ml 41 ml 210 ml 6290 ml Intake Oral 400 ml 200 ml 4560 ml IV Total 210 ml 441 ml 610 ml 6180 ml Output Urine Total 800 ml 600 ml 4450 ml # Voids 24 # Bowel Movements 1 0 2 Exam Constitutional: Middle-aged woman lying on her bed with oxymask on, in no acute distress Head: Normocephalic atraumatic Eyes: PERRLA, EOMI, Scleral Anicteric Mouth: Mouth Normal, Mucous Membranes Moist/Jones Neck: Supple, no Thyromegaly, trachea central. No JVD noted Chest: Diffuse coarse lung sounds with rales and expiratory wheezes heard loudly throughout. Cardiovascular: Regular rate and rhythm. No murmur noted. Abdomen: Soft, nondistended, nontender, bowel sounds present Extremities: Trace bilateral pedal edema Neuro: Alert and oriented 3, motor strength is intact bilaterally, normal speech, delayed relaxation of the brachioradial DTR. Psych: Flat affect. IVs and Medications Medications Reviewed: Medications were reviewed in detail Lab and Diagnostics Result Diagram: 02/06/17 0500 02/06/17 0500 X-Rays, CTs and MRIs X-RAY CHEST ONE VIEW, PORTABLE 01/30/17 IMPRESSION: No acute cardiopulmonary disease. Dictated by: Yash Yu MERGED WITH [facility] Interpreted: Hanane Arnold MD on 01/30/2017 at 15:29 Transcribed by: SANDEEP on 01/30/2017 at 15:29 Approved by: Hanane Arnold MD, PhD on 01/30/2017 at 16:30 CT ANGIO CHEST PULMONARY EMBOLISM 01/30/17 IMPRESSION: 1. No acute process. 2. No pulmonary embolus. 3. Left pleural and lower lobe nodules as described above, largest of which measures 10 mm; followup is recommended as below. 4. Right basilar pleural-parenchymal opacity, presumably reflecting scarring secondary to prior infection/inflammation. Recommend attention to this region on followup imaging studies. Fleischner Society criteria for SOLID lung nodule followup. Nodule size (mm)Low-risk patientHigh-risk patient<6 (single or multiple)No routine followup.Optional CT at 12 months. 6-8 (single or multiple)CT at 6-12 months, then optional CT at 18-24 mo.CT at 6-12 months, then CT at 18-24 months. >8 (single)CT, PET-CT, or biopsy at 3 months. Same as for low-risk pts. >8 (multiple)CT at 3-6 months, then optional CT at 18-24 mo.CT at 3-6 months, then CT at 18-24 months. Recommendations do not apply to lung cancer screening, patients with immunosuppression, or patients with known primary cancer. Dictated by: Tobias Mayer M.D. on 01/30/2017 at 16:19 Approved by: Tobias Mayer M.D. on 01/30/2017 at 16:26 PROCEDURE: X-RAY CHEST, TWO VIEWS IMPRESSION: 1. Findings suspicious for multi-lobar aspiration or pneumonia. 2. Patchy opacities within the more aerated portions of lungs may be associated with fluid overload or multifocal pneumonia. Dictated by: Johana Altamirano M.D. on 02/03/2017 at 18:24 Approved by: Johana Altamirano M.D. on 02/03/2017 at 18:26 PROCEDURE: X-RAY CHEST ONE VIEW, PORTABLE IMPRESSION: Overall, stable examination since yesterday as detailed above Dictated by: Jesus Baker M.D. on 02/04/2017 at 10:44 Approved by: Jesus Baker M.D. on 02/04/2017 at 10:45 PROCEDURE: CT CHEST WITHOUT CONTRAST IMPRESSION: Bilateral widespread areas of consolidation in keeping with multifocal pneumonia and/or aspiration. Please correlate clinically. Recommend continued followup with serial chest radiographs (3 month interval noncontrast chest CT) to document resolution and exclude underlying neoplasm, in particular with respect to the previously described right basilar posterior pleural parenchymal focus, with calcifications. Dictated by: Jesus Baker M.D. on 02/04/2017 at 12:11 Approved by: Jesus Baker M.D. on 02/04/2017 at 12:20 Cardiac Echo Impressions Echo Interpretation Summary by Dr. Karli Decker on 01/31/2017: 1) Mildly dilated left ventricle with normal thickness and severely reduced systolic function (EF 25-30%). 2) Global hypokinesis that is significantly worse in the inferior wall and the septum. 3) Normal right ventricular size with mildly reduced function. 4) Posterior leaflet of the mitral valve is fixed. Mild mitral regurgitation present. 5) Mild to moderate tricuspid regurgitation. 6) Normal pulmonary artery pressures. 7) No prior Echo available for comparison. Findings are suggestive of ischemic cardiomyopathy. Assessment & Plan 61 year old female with Non hodgkin's lymphoma, a [place] filter placed due to multiple PE, coronary artery disease post CABG, diabetes, and hyperthyroidism, presents to the [facility] emergency department complaining of shortness of breathe and feelings of chest heaviness. Hospital day # 8. 1. Acute hypoxemic and hypercapnic respiratory failure, present on admission, improving today. - Multifactorial. Could be due to HCAP or fluid overload secondary to CHF. - Patient required BiPAP yesterday and overnight but this AM is tolerating oxymask well. Keep BiPAP available in room as needed. - ABG PRN to assess need for BiPAP, altered mental status, and/or desaturations. - Supplemental O2 goals 92-96%. - Albuterol nebulizers PRN. - Dr. Moreno of pulmonology consulted and we appreciate his input. - Treat the underlying cause(s) as below. 2. Suspected healthcare-acquired pneumonia, not present on admission, acute. - Likely due to human metapneumovirus with possible bacterial superinfection based on the extensive nature of the infiltrate as well as her moderately elevated procalcitonin and the initial left shift, now normalized. - Due to history of stem cell transplant concern for pneumocystis pneumonia. Atovaquone started 02/04/17. - Upon further questioning, patient was not on any immunosuppressive therapy post-transplant, and her bandemia has resolved. Therefore, Atovaquone was stopped on 02/05/17 - Concern for possible fungal lung disease based on history acquired by pulmonology. Micafungin started 02/04/17, then stopped on 02/06/17 per ID recommendations. - MRSA screen negative and will stop Doxycycline as well. Will switch to Levaquin PO as the only antibiotics. - Await cultures and serologies. - Dr. Moreno is following and we appreciate his input. - Dr. Chen consulted and his recommendations are greatly appreciated. 3. Acute on chronic systolic heart failure, present on admission, improved. - Echo on 01/31/17 showed severely reduced systolic function (EF 25-30%). Global hypokinesis that is significantly worse in the inferior wall and the septum. - Findings are suggestive of ischemic cardiomyopathy. - IV fluids stopped. Encourage PO hydration as tolerated. - Concern for fluid overload status so IV Lasix D/C on 02/03/17. - Will monitor for need for additional diuresis. 4. Acute Chest pain. Present on admission. Resolved. - Cardiology studies reassuring so no cardiac intervention needed at this time. - Patient asymptomatic. - Continue telemetry. 5. Acute Kidney injury. Present on admission. Active. - Creatinine stable over the last few days despite both fluids and then diuresis. - Patient with reports of diarrhea so will encourage PO hydration at this time. - Continue to monitor BMP. - Avoid nephrotoxic meds. 6. Diabetes type 2, chronic, uncontrolled. - Poor controlled with report of non compliance with Metformin. - HgA1C 11 suggests that oral agents will likely not be adequate to treat her diabetes as outpatient - Continue to hold Metformin for now. - Increase Lantus to 15 units daily today. Will continue to monitor fasting BG and will increase the insulin gradually. - Medium Lispro correction algorithm available PRN. - Diabetic Education ordered. 7. Hypothyroidism, chronic, uncontrolled. - S/p total thyroidectomy from h/o thyroid cancer. TSH elevated (TSH 76, Free T4 0.3) due to non compliance with medications. - Patient was on Synthroid at 325mcg daily before she stopped taking her meds. Will decrease to 100mcg daily and will increase gradually as outpatient. - Repeat TSH in 4-6 weeks as outpatient. 8. Severe mitral regurgitation status post valvular repair, ASD with repair. Stable. - Continue outpatient follow ups for this particular issue. 9. Non Hodgkin Lymphoma s/p stem cell transplant in 2001, presume in remission. - Follow up with outpatient Oncology for surveillance. 10. Acute hypomagnesemia. present on admission, ongoing. - Continue to monitor magnesium and replete as needed. - Antiemetic available PRN. - Bowel regimen available PRN. - Antacid available PRN. Dispo: 2-3 days pending improvement in renal function and respiratory status. Pain Evaluation: Adequate Pain Control GI Prophylaxis: Not indicated VTE Prophylaxis: Sub-Q Heparin (Unfractionated) Resuscitation Status: CPR: Attempt Resuscitation Attending Statement The patient was seen and examined together with Dr. Burr on 02-06-17 and I agree with the history, exam and plan as outlined in the note above. Daysi Burr DO Feb 06, 2017 09:17 Michael Stephen MD Feb 07, 2017 16:21
--- NOTE | 2017-02-06 16:01 | NUR ---
Headache She complained of a mild 4/10 headache today, but declined to take any pain medication when offered. She is currently resting and has not made any more comments since noon regarding her headache. Care continues.
[2017-02-06] MEDS: levoFLOXacin 750 mg Tablet PO SCH (17:24)
--- NOTE | 2017-02-06 18:26 | CONS ---
[address] [address] CONSULTATION REPORT PATIENT: MARZENA METZ : 1955 MR#: [id number] ADMIT: 01/30/2017 JOB ID: [id number] DATE OF SERVICE: I thank Dr. Stephen for this timely consult. REASON FOR CONSULTATION: Bilateral pneumonia in a patient with [id number] diabetes and a distant history of lymphoma, as well as underlying organic heart disease and prior history of pulmonary embolism. HISTORY OF THE PRESENT ILLNESS: The patient is a complex, 61-year-old woman with multiple underlying medical problems including organic heart disease, pulmonary emboli, hypothyroidism, diabetes. She reports that she stopped taking her medicines for diabetes, hypothyroidism, and other problems months ago, 3-4 months ago, and since then has had some progressive weight gain, malaise, peripheral edema, and fatigue. More recently, she took her granddaughter, who had been ill with a severe respiratory tract infection, in to see a physician, and at that time, the he patient herself was also evaluated and found to have some chest pressure and shortness of breath which led to her referral here and evaluation and admission back on January 30, one full week ago. There was great concern, of course, when she presented for evaluation because she has a history of PE with a Leonard filter, as well as underlying coronary disease, hyp-wu-qcfskuf diabetes, and a distant history of an autologous bone marrow transplant. The patient tells us that prior to admission on the , she did not have fevers, chills or sweats,however, and really just had a nagging sometimes productive cough, that had gone on for several days prior to her evaluation. This was associated with a feeling of heaviness or tightness in the chest but there was no pleuritic chest pain per se. She notes that she did not have fevers, chills or sweats prior to admission, though she has felt that way a couple times since admission. Since admission, it was discovered the patient is now profoundly hypothyroid and that her diabetes is under very poor control which is undoubtedly related to stopping all of her medicines 100 days or so ago. She has also undergone additional evaluation by Cardiology and imaging including a CT scan of the chest, which disclosed very significant bilateral right greater than left pneumonia. Because of concerns that she may be immunosuppressed based on her prior history of lymphoma and the fact that it was a little unclear initially when her transplant was done and what the nature of the transplant was, she was treated very broadly recently with atovaquone, micafungin, doxycycline, and levofloxacin. These were chosen because she reports many drug allergies, including ALL BETA LACTAMS as well as SULFA DRUGS. This morning, the patient tells us that she is feeling somewhat improved. She no longer reports fevers, chills or sweats though she did say she has had some earlier in her hospital stay. She is still receiving some supplemental oxygen at 4 L throughout an OxyMask which she finds somewhat irritating to wear. She denies significant sore throat, odynophagia or dysphagia. She has no pleuritic chest pain, minimal cough, and as noted, mild to moderate shortness of breath. No substernal chest pressure. No nausea, vomiting, diarrhea, though she does feel that food sticks in her stomach for an inordinately long time after she eats. No symptoms. PAST MEDICAL HISTORY: 1. Organic heart disease. a. Status post mitral valve annuloplasty. b. Cardiomyopathy. c. Coronary artery disease. d. ASD repair. e. Paroxysmal atrial fibrillation. 2. Pulmonary embolism with Leonard filter. Distant past. 3. Hypothyroidism with med noncompliance. 4. Diabetes mellitus with med noncompliance and hemoglobin A1c in excess of 11. 5. Gastroparesis. 6. History of vertigo secondary to CVA. 7. Hypertension. 8. 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 9. Status post bilateral total knee replacements. 10. Status post cholecystectomy. 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 She is a nonsmoker, nondrinker. Lives with her son and a grandchild. She is originally from [place] but has resided in [facility] for an extended period. FAMILY HISTORY: Negative on her mother's side at least for tuberculosis. She does not know anything about her biologic father. She has been tested many times at the [facility] in [employer] where she worked and was always negative. REVIEW OF SYSTEMS: Was done. The patient has minimal headache at this point. No visual change. She denies sore throat or trouble swallowing. She has no pain in the neck or stiff neck. She does have a cough which was, she thinks, somewhat productive, but she tends to swallow her sputum. If anything, this is improving. No pleuritic chest pain. No substernal chest pain today. No nausea, vomiting, diarrhea, though she does have a sense of food sticking in her stomach. No diarrhea. No dysuria, urgency, frequency. No significant or new pain in the legs. She does note she has flaky skin on her feet bilaterally. The remainder of the review of systems is negative. PHYSICAL EXAMINATION: Reveals an afebrile woman. Temp 36.4 pulse 90, respiratory rate 16, blood pressure 116/67. She is saturating well but requiring 5 L by face mask. She is in no acute distress. Examination of the head reveals no trauma. Sinuses nontender. Eyes without conjunctivitis. Nose normal. Oral cavity, no pharyngitis, no hairy leukoplakia. Teeth in reasonable repair. Neck without palpable thyroid. There is a scar indicating possible thyroid removal in the past. No cervical or supraclavicular adenopathy. No JVD. Lungs notable for considerable rales at the right base and a few at the left base. Cardiac tones: Regular rate and rhythm without murmur. Patient's abdomen is soft, nontender, without organomegaly or masses. No suprapubic fullness, but she does have a Daley catheter. The knees are notable for bilateral vertical incisions consistent with her history of bilateral knee replacements. There is no evidence for diabetic foot infection. She has minimal peripheral pulses, however, including both dorsal pedal and posterior tibial and her capillary refill was borderline, but there is no skin breakdown or evidence of diabetic foot infection. The skin on her feet is flaky and a bit dry and could benefit from moisturizer but no obvious cellulitis. She has minimal peripheral edema bilaterally. There is no evidence of synovitis or joint inflammation at this point. Neurologically, the patient is entirely intact. Her mood seems a bit depressed and her affect is flat, though she is certainly lucid and able to answer questions. LABORATORIES: Include white count 7400, platelet count 214, hematocrit 25. Creatinine 1.21. LFTs are normal. Albumin 3.1. Procalcitonin was as high as 1.16. It is now down to 0.67. CD4 count is pending. Cryptococcal antigen negative. Fungitell pending. Galactomannan pending. Urine Legionella negative. HIV negative. Micro studies include 1/4 blood cultures which grew coag-negative Staph. A MRSA screen is negative. Blood cultures negative. Multiplex PCR positive for human metapneumovirus. Urine culture has minimal growth of what appeared to be E coli. There was no urinalysis is to go with that culture and she has no symptoms so it is hard to say what it means. C. diff negative. Sputum Gram stain and culture negative and sputum PCR pending. IMAGING: The patient's chest CT was carefully reviewed with the ICU attending. It shows bilateral widespread areas of consolidation consistent with pneumonia and is much worse on the right than the left. Plain chest x-rays are similar in their appearance to that CT scan. The patient also had a CT angio earlier in her hospital stay which showed no pulmonary emboli. IMPRESSION: This is a very difficult case of a woman with medication noncompliance who now has out-of- control diabetes as part of her ongoing immunosuppression. I doubt that she is immunosuppressed by virtue of her lymphoma 15 years after an autologous stem cell transplant, however. She presents with what is certainly at least in part a human metapneumovirus process and in fact the human metapneumovirus may explain all of her chest x-ray abnormalities. I remain concerned, however, that she may have a bacterial superinfection based on the extensive nature of the infiltrate as well as her moderately elevated procalcitonin and the initial left shift that was seen in her white count, though that has now normalized. At this point, I think she would be considered a relatively normal host except for her rlo-rx-[id number] diabetes and I do not think she is at high risk at this point for fungal and pneumonia including Pneumocystis pneumonia. RECOMMENDATIONS: 1. I have discontinued the micafungin, atovaquone, and doxycycline. 2. Will continue with levofloxacin and this can be switched from IV to oral. 3. I agree with the workup which has been initiated and so far includes galactomannan and Fungitell, as well as crypto antigen. 4. To the above-mentioned studies, will add a QuantiFERON Gold and an LDH. 5. The patient has urine culture growing E. coli but no urinalysis and no symptoms so will order a UA as additional confirmation. She does not have pyuria. 6. This case discussed extensively with Dr. Moreno of the ICU team as well as Dr. Stephen of the hospitalist team. 7. We reiterated to the patient the importance of being compliant with her meds, including especially her thyroid meds and her diabetes meds, as she presents now with rather severe hypothyroidism and ige-if-phhdcus diabetes which are obviously contributing to her current symptomatology.
[2017-02-06] MEDS: guaiFENesin DM 200-20 mg/10 mL Syrup PO PRN (21:38)
[2017-02-06] MEDS: Insulin LISPRO High-Dose Scale SUBQ PRN (21:44)
--- NOTE | 2017-02-06 22:00 | NUR ---
communication with daughter spoke with daughter. daughter concerned that her mother find a local pcp she can see sooner than april. re assured her that the hospital would help with this. also concerned about her mom taking her medicine. she states 'my mom just doesn't want to take the medicine." discussed medication compliance for improved health. daughter worried "when will my mom be sent home?" per the notes 2 more days. daughter stated that her aunt was coming to help with her mom when she returns home. care ongoing.
[2017-02-07] VITALS (13 sets, daily range): BP systolic 104–129; BP diastolic 63–77; PULSE 87–99; RESP 17–23; O2SAT 85–99
--- NOTE | 2017-02-07 01:29 | NUR ---
oxygen requirement - declines bipap patient requested to be off the bipap tonight. states "it is huyrting my nose." bridge of nose is pink. no breakdown. placed back on 5 liters oxymask. bedside pulse ox 98% tolerating walking to the bathroom. care ongoing. Addendum: 02/07/17 at 0433 by AMEYA SILVA RN patient has tolerated the oxymask well through the night. bedside pulse oximetry 98%. resting easily persisent cough a times. given cough syrup x1
[2017-02-07 05:31] LABS: Mean Corpuscular Hemoglobin 30.4 pg (27.0-35.0); Mean Corpuscular Volume 97.5 fL (81-100); Platelet Count 241 bil/L (150-400)
[2017-02-07 05:55] LABS: BASOPHILS % (AUTO) 0 % (0-3); EOSINOPHILS % (AUTO) 1 % (0-5); MONOCYTES % (AUTO) 7 % (4-12); NEUTROPHILS % (AUTO) 62 % (40-74)
[2017-02-07 06:08] LABS: Magnesium 1.8 mg/dL (1.6-2.6)
[2017-02-07] MEDS: Albuterol 2.5 mg/3 mL Inhalation Solution NEB SCH ×3 (07:45→20:01)
[2017-02-07] MEDS: levoFLOXacin 750 mg Tablet PO SCH (08:10)
[2017-02-07] MEDS: Heparin 5,000 Unit/mL Inj SUBQ SCH ×2 (08:12→17:09)
[2017-02-07] MEDS ORDERED: Insulin GLARgine 100 Unit/mL Syringe SUBQ SCH (08:30)
[2017-02-07] MEDS: Sodium Chloride LOK Flush 10 mL Syringe IVFLUSH SCH ×3 (08:30→17:09)
--- NOTE | 2017-02-07 08:43 | PROG NOTE ---
[address] [address] PROGRESS NOTE PATIENT: MARZENA METZ : 1955 MR#: [id number] ADMIT: 01/30/2017 JOB ID: [id number] DATE: 02/07/2017 INFECTIOUS DISEASE FOLLOWUP NOTE: REASON FOR FOLLOWUP: Viral pneumonia probably complicated by bacterial pulmonary process. INTERVAL HISTORY: Overnight, the patient has improved considerably. She states she still feels hot and cold at times but no rigors or overt fevers. She continues to have a cough, which is intermittently productive but is diminished overnight. No pleuritic chest pain. No sore throat. No nausea, vomiting, or diarrhea. PHYSICAL EXAMINATION: Reveals an afebrile woman. She has been afebrile now for three days. Temperature 36.6, pulse 94, respiratory rate 18, blood pressure 129/77. She is saturating well on 4 L which has improved from yesterday. Mental status is sharp. Oral cavity without thrush or pharyngitis. Lungs with rales at the bases much more so on the right than the left. No pleural rub is heard. Cardiac tones without new murmur. Abdomen obese soft, nontender. No skin rash. LABORATORIES: Include white count 9000 with a much improved differential. Previously 23% bands, now only 2% bands. Creatinine 1.15. Liver function tests normal. LDH 229. Procalcitonin has dropped by half, now 0.38. CD4 cells have comes back. They are 419, which is normal. CD4% is 42, which is right in the middle of normal. Hep C antibody is negative. HIV negative. Cryptococcal antibody and galactomannan are pending. Micro includes AFB smear, which is negative, sputum Gram stain, which is unremarkable and growing, and the culture of the sputum is growing only normal elisa. C. diff negative. Pneumococcal and legionella urine antigens negative. Sputum positive by multiplex PCR for human metapneumovirus. One positive blood culture for coag-negative staph. IMPRESSION: This patient with very poorly controlled diabetes and hypothyroidism was admitted with pneumonia. This pneumonia is at least in part secondary to the human metapneumovirus but we cannot exclude the possibility of bacterial superinfection with her moderately elevated procalcitonin and white count. I see no evidence for a more serious opportunistic infection in this patient with a distant history of lymphoma that was apparently cured by autologous stem cell transplantation. RECOMMENDATION: 1. Yesterday we discontinued micafungin, atovaquone and doxycycline. 2. Will continue with oral levofloxacin probably for about a five-day total course. 3. We await multiple pending serologies and cultures. 4. We also await the final report on the urine culture, which yesterday was said to be growing a light growth of E. coli, and we await those susceptibilities but I think that is not a significant clinical part of the picture. 5. Will continue to follow this patient with you.
[2017-02-07 10:58] LABS: Cryptococcal Ag Negative (Negative)
--- NOTE | 2017-02-07 15:07 | NUR ---
NUTRITION ASSESSMENT Assess: 61 yo F w/ acute hypoxemia and hypercapnic respiratory failure, suspected pneumonia, CHF, WILIAM, and uncontrolled diabetes. Pt requiring oxymask. PO intake has been poor for the last couple days. Pt states she has just a general lack of appetite but is trying to force herself to eat. PMHx: RLE DVT, PE, Non-Hodgkin's lymphoma, Afib, CHF, Mitral regurgitation s/p repair, HLD, DM 2, Hypothyroid, GERD, Gastroparesis, CVA, HTN LABS: Cr 1.15, Glu 235, Lactate dehydrogenase 229 MEDICATIONS: Reviewed. Synthroid, Insulin DIET: Heart Healthy/Consistent Carb, PO 0-75% NUTRITION FOCUSED PHYSICAL ASSESSMENT: GI symptoms/stool: BM x1 02/05 Skin integrity: No issues noted; Devyn: 22 Overall Appearance: Obese woman w/ nasal cannula in place no signs of wasting. ANTHROPOMETRICS: Current Wt: 104.7 kg BMI: 37.3 kg/r4Xxrpr Wt: 103.8 kg IBW: 59.1 kgRecent wt changes: None noted ESTIMATED NEEDS: BMI Calories: 7978-2674 kcal/d (20-22 kcal/kg/d) Protein: 70-105 g/d (1.2-1.5 g/kg/d) Fluids: 3654-0443 ml/d (1 ml/kcal/d) NUTRITION DIAGNOSIS: 1) Inadequate oral intake related to acute respiratory failure as evidenced by poor PO intake. INTERVENTION: 1) Will continue Glucerna TID MONITOR/EVALUATE: PO intake, Labs, Wt, Nutrition status, POC. Will follow per moderate nutrition risk guidelines.
[2017-02-07] MEDS: guaiFENesin DM 200-20 mg/10 mL Syrup PO PRN (17:30)
--- NOTE | 2017-02-07 18:46 | NUR ---
General status Pt A&OX3, able to make needs known. Cooperative with care. Flat affect at times. C/O feeling overly tired throughout shift. L[place], ambulates well with 1 person assisting. Tele SR 90s, later removed per MD order. No c/o chest pain. Weaning off O2 throughout shift, currently at 2L satting 95%. Bilateral lungs scattered wheezes, diminished in the bases posteriorly. Coughing intermittently, received PRN cough syrup this evening, helpful. Received SQ Heparin at 1630. Spoke with daughter this shift for an update.
[2017-02-07] MEDS ORDERED: Insulin GLARgine 100 Unit/mL Syringe SUBQ ONE (19:35)
--- NOTE | 2017-02-07 19:40 | PCM.PNMED ---
Subjective Date of Service Feb 07, 2017 Subjective Overnight: patient requested to be off the bipap tonight and placed back on 5 liters oxymask. She has tolerated the oxymask well through the night. Bedside pulse ox 98%. Still has persisent cough at times and was given cough syrup x1. No other acute event. Today: Patient continues to have poor appetite and generalized fatigue. She states that she had a few bites of her breakfast and felt very tired that she needs to lie down. However, she reports improvement of her cough and shortness of breath. She has been voiding and stooling with no issue. Patient has no other complaint today. Exam Vital Signs Vital Sign - Last Date Time Temp Pulse Resp B/P Pulse Ox O2 Delivery O2 Flow Rate FiO2 02/07/17 03:58 100 85 02/07/17 03:10 36.6 20 129/77 OxyMask 6.00 02/06/17 21:03 35 Intake and Output 02/06/17 02/06/17 02/07/17 Cumulative From/Thru 15:00 23:00 07:00 01/30/17 13:45 - 02/07/17 06:07 Intake Total 847 ml 237 ml 18487 ml Output Total 800 ml 5250 ml Balance 47 ml 237 ml 6574 ml Intake Oral 300 ml 237 ml 5097 ml IV Total 547 ml 6727 ml Output Urine Total 800 ml 5250 ml # Voids 2 26 # Bowel Movements 0 2 Exam Constitutional: Middle-aged woman lying on her bed with oxymask on, in no acute distress Head: Normocephalic atraumatic Eyes: PERRLA, EOMI, Scleral Anicteric Mouth: Mouth Normal, Mucous Membranes Moist/Ada Neck: Supple, no Thyromegaly, trachea central. No JVD noted Chest: Diffuse coarse lung sounds with rales and expiratory wheezes heard loudly throughout, but slightly improved compared to yesterday exam. Cardiovascular: Regular rate and rhythm. No murmur noted. Abdomen: Soft, nondistended, nontender, bowel sounds present Extremities: Trace bilateral pedal edema Neuro: Alert and oriented 3, motor strength is intact bilaterally, normal speech, delayed relaxation of the brachioradial DTR. Psych: Restricted affect, but is more conversational today IVs and Medications Medications Reviewed: Medications were reviewed in detail Lab and Diagnostics Result Diagram: 02/07/17 0453 02/07/17 0453 X-Rays, CTs and MRIs X-RAY CHEST ONE VIEW, PORTABLE 01/30/17 IMPRESSION: No acute cardiopulmonary disease. Dictated by: Yash Yu [facility] Interpreted: Hanane Arnold MD on 01/30/2017 at 15:29 Transcribed by: SANDEEP on 01/30/2017 at 15:29 Approved by: Hanane Arnold MD, PhD on 01/30/2017 at 16:30 CT ANGIO CHEST PULMONARY EMBOLISM 01/30/17 IMPRESSION: 1. No acute process. 2. No pulmonary embolus. 3. Left pleural and lower lobe nodules as described above, largest of which measures 10 mm; followup is recommended as below. 4. Right basilar pleural-parenchymal opacity, presumably reflecting scarring secondary to prior infection/inflammation. Recommend attention to this region on followup imaging studies. Fleischner Society criteria for SOLID lung nodule followup. Nodule size (mm)Low-risk patientHigh-risk patient<6 (single or multiple)No routine followup.Optional CT at 12 months. 6-8 (single or multiple)CT at 6-12 months, then optional CT at 18-24 mo.CT at 6-12 months, then CT at 18-24 months. >8 (single)CT, PET-CT, or biopsy at 3 months. Same as for low-risk pts. >8 (multiple)CT at 3-6 months, then optional CT at 18-24 mo.CT at 3-6 months, then CT at 18-24 months. Recommendations do not apply to lung cancer screening, patients with immunosuppression, or patients with known primary cancer. Dictated by: Tobias Mayer M.D. on 01/30/2017 at 16:19 Approved by: Tobias Mayer M.D. on 01/30/2017 at 16:26 PROCEDURE: X-RAY CHEST, TWO VIEWS IMPRESSION: 1. Findings suspicious for multi-lobar aspiration or pneumonia. 2. Patchy opacities within the more aerated portions of lungs may be associated with fluid overload or multifocal pneumonia. Dictated by: Johana Altamirano M.D. on 02/03/2017 at 18:24 Approved by: Johana Altamirano M.D. on 02/03/2017 at 18:26 PROCEDURE: X-RAY CHEST ONE VIEW, PORTABLE IMPRESSION: Overall, stable examination since yesterday as detailed above Dictated by: Jesus Baker M.D. on 02/04/2017 at 10:44 Approved by: Jesus Baker M.D. on 02/04/2017 at 10:45 PROCEDURE: CT CHEST WITHOUT CONTRAST IMPRESSION: Bilateral widespread areas of consolidation in keeping with multifocal pneumonia and/or aspiration. Please correlate clinically. Recommend continued followup with serial chest radiographs (3 month interval noncontrast chest CT) to document resolution and exclude underlying neoplasm, in particular with respect to the previously described right basilar posterior pleural parenchymal focus, with calcifications. Dictated by: Jesus Baker M.D. on 02/04/2017 at 12:11 Approved by: Jesus Baker M.D. on 02/04/2017 at 12:20 PROCEDURE: X-RAY CHEST ONE VIEW, PORTABLE IMPRESSION: Persistent pulmonary radiopacities suspicious for pneumonia. Dictated by: Johana Altamirano M.D. on 02/05/2017 at 8:44 Approved by: Johana Altamirano M.D. on 02/05/2017 at 8:48 Cardiac Echo Impressions Echo Interpretation Summary by Dr. Karli Decker on 01/31/2017: 1) Mildly dilated left ventricle with normal thickness and severely reduced systolic function (EF 25-30%). 2) Global hypokinesis that is significantly worse in the inferior wall and the septum. 3) Normal right ventricular size with mildly reduced function. 4) Posterior leaflet of the mitral valve is fixed. Mild mitral regurgitation present. 5) Mild to moderate tricuspid regurgitation. 6) Normal pulmonary artery pressures. 7) No prior Echo available for comparison. Findings are suggestive of ischemic cardiomyopathy. 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 emergency department complaining of shortness of breathe and feelings of chest heaviness. Hospital day # 9. 1. Acute hypoxemic and hypercapnic respiratory failure, present on admission, improving today. - Multifactorial. Could be due to HCAP or fluid overload secondary to CHF. - Patient required BiPAP yesterday and overnight but this AM is tolerating oxymask well. Keep BiPAP available in room as needed. - ABG PRN to assess need for BiPAP, altered mental status, and/or desaturations. - Supplemental O2 goals 92-96%. - Albuterol nebulizers PRN. - Dr. Moreno of pulmonology consulted and we appreciate his input. - Treat the underlying cause(s) as below. 2. Suspected healthcare-acquired pneumonia, not present on admission, acute. - Likely due to human metapneumovirus with possible bacterial superinfection based on the extensive nature of the infiltrate as well as her moderately elevated procalcitonin and the initial left shift, now normalized. - Due to history of stem cell transplant concern for pneumocystis pneumonia. Atovaquone started 02/04/17. - Upon further questioning, patient was not on any immunosuppressive therapy post-transplant, and her bandemia has resolved. Therefore, Atovaquone was stopped on 02/05/17 - Concern for possible fungal lung disease based on history acquired by pulmonology. Micafungin and Doxycycline started 02/04/17, then both stopped on per ID recommendations. - Continue with Levaquin PO as the only antibiotics. Day #4 on antibiotics. - Await cultures and serologies. Blood cultures no growth for 24 hours. Sputum culture negative. Negative Legionella and Strep Ag. - Dr. Moreno is following and we appreciate his input. - Dr. Chen consulted and his recommendations are greatly appreciated. 3. Acute on chronic systolic heart failure, present on admission, improved. - Echo on 01/31/17 showed severely reduced systolic function (EF 25-30%). Global hypokinesis that is significantly worse in the inferior wall and the septum. - Findings are suggestive of ischemic cardiomyopathy. - IV fluids stopped. Encourage PO hydration as tolerated. - Concern for fluid overload status so IV Lasix D/C on 02/03/17. - No sign of fluid overload. Will monitor for need for additional diuresis. 4. Acute Chest pain. Present on admission. Resolved. - Cardiology studies reassuring so no cardiac intervention needed at this time. - Patient asymptomatic. - Continue telemetry. 5. Acute Kidney injury. Present on admission. Active. - Creatinine gradually trends up over the last few days, slightly improved today. - Patient with reports of one episode of diarrhea so will encourage PO hydration at this time. - Continue to monitor BMP. - Avoid nephrotoxic meds. 6. Diabetes type 2, chronic, uncontrolled. - Poor controlled with report of non compliance with Metformin. - HgA1C 11 suggests that oral agents will likely not be adequate to treat her diabetes as outpatient - Continue to hold Metformin for now. - Will give patient 5 units of lantus tonight and change Lantus to 20 unit QHS starting tomorrow 02/08. Will continue to monitor fasting BG and will increase the insulin as needed. - Medium Lispro correction algorithm available PRN. - Diabetic Education ordered. 7. Hypothyroidism, chronic, uncontrolled. - S/p total thyroidectomy from h/o thyroid cancer. TSH elevated (TSH 76, Free T4 0.3) due to non compliance with medications. - Patient was on Synthroid at 325mcg daily before she stopped taking her meds. Will continue 100mcg daily and will increase gradually as outpatient. - Repeat TSH in 4-6 weeks as outpatient. 8. Severe mitral regurgitation status post valvular repair, ASD with repair. Stable. - Continue outpatient follow ups for this particular issue. 9. Non Hodgkin Lymphoma s/p stem cell transplant in 2001, presume in remission. - Follow up with outpatient Oncology for surveillance. 10. Acute hypomagnesemia. present on admission, ongoing. - Continue to monitor magnesium and replete as needed. - Antiemetic available PRN. - Bowel regimen available PRN. - Antacid available PRN. Dispo: 2-3 days pending improvement in renal function and respiratory status. Pain Evaluation: Adequate Pain Control GI Prophylaxis: Not indicated VTE Prophylaxis: Sub-Q Heparin (Unfractionated) VTE Mechanical Devices: Intermittant Pneumatic CD Resuscitation Status: CPR: Attempt Resuscitation Attending Statement The patient was seen and examined together with Dr. Burr on 02-07-17 and I agree with the history, exam and plan as outlined in the note above. Daysi Burr DO Feb 07, 2017 06:48 Michael Stephen MD Feb 08, 2017 12:32
[2017-02-07] MEDS: LORazepam 0.5 mg Tablet PO PRN (20:09)
[2017-02-08] VITALS (13 sets, daily range): BP systolic 108–128; BP diastolic 63–82; PULSE 90–104; RESP 16–23; O2SAT 89–98
[2017-02-08] MEDS: Sodium Chloride LOK Flush 10 mL Syringe IVFLUSH SCH ×4 (00:34→21:41)
[2017-02-08] MEDS: Heparin 5,000 Unit/mL Inj SUBQ SCH ×4 (00:35→23:53)
[2017-02-08 06:03] LABS: Mean Corpuscular Volume 97.8 fL (81-100); Platelet Count 273 bil/L (150-400)
--- NOTE | 2017-02-08 06:24 | NUR ---
bipap/activity pt wearing bipap most of the night, woke up to use the bathroom x2, removed bipap and used NC to ambulate to bathroom with 1pa pt getting a little SOB quickly recovered
[2017-02-08 06:33] LABS: Magnesium 1.5 mg/dL (1.6-2.6)
[2017-02-08 07:18] LABS: BASOPHILS % (AUTO) 0 % (0-3); EOSINOPHILS % (AUTO) 0 % (0-5); MONOCYTES % (AUTO) 13 % (4-12); NEUTROPHILS % (AUTO) 61 % (40-74)
[2017-02-08] MEDS: Albuterol 2.5 mg/3 mL Inhalation Solution NEB SCH ×4 (07:27→20:43)
[2017-02-08] MEDS: levoFLOXacin 750 mg Tablet PO SCH (08:58)
[2017-02-08] MEDS: Insulin LISPRO High-Dose Scale SUBQ PRN ×4 (09:04→21:52)
--- NOTE | 2017-02-08 09:44 | PROG NOTE ---
[address] [address] PROGRESS NOTE PATIENT: MARZENA METZ : 1955 MR#: [id number] ADMIT: 01/30/2017 JOB ID: [id number] DATE: 02/08/2017 INFECTIOUS DISEASE FOLLOWUP NOTE: REASON FOR FOLLOWUP: Human metapneumovirus viral pneumonia with superimposed bacterial pneumonia. INTERVAL HISTORY: Overnight, the patient has had considerable cough, which is worse when she lies down and ameliorated when she sits up and leans forward. She has had no associated fever or chills. No chest pain, nausea, vomiting, or diarrhea. PHYSICAL EXAMINATION: Reveals a depressed appearing woman sitting up in her wheelchair. She does not appear to be in any acute distress. Temperature is 37, and she has been afebrile now for a full five days. Pulse 100, respiratory rate 20, blood pressure 110/68, saturating well on 2 L, which is down from 4 and 5 L she had received on prior days. The patient is awake and alert. Oral cavity negative. Lungs with coarse breath sounds bilaterally. Little change from yesterday. Cardiac tones: Regular rate and rhythm. Abdomen obese, soft, nontender. No skin rash noted. LABORATORIES: Include a white count which is normal at 9500. She does have 2% metamyelocytes and 2% myelocytes. Otherwise, normal diff. Creatinine has come down to 0.96. LFT are normal. Procalcitonin, which peaked at a relatively low level of 1.16, is now down to 0.24. CD4 count 419. Cryptococcal antigen negative. Hep C negative. HIV negative. Urine grew E. coli, which was quinolone susceptible and has been treated with the levofloxacin we are prescribing for the superimposed bacterial pneumonia. PCR was positive for human metapneumovirus. Otherwise, we have negative cultures. The patient is just going for a new chest x-ray this morning but it has not yet been performed. IMPRESSION: This woman has poorly controlled diabetes and hypothyroidism secondary to medication nonadherence. She came in with pneumonia, which is at least partly due to human metapneumovirus but we believe there is a superimposed bacterial superinfection of unknown etiology. She seems to be improving with levofloxacin alone as therapy, and I think that is more than adequate, given her declining white count, as well as procalcitonin. RECOMMENDATIONS: 1. Continue with levofloxacin through February 10 to complete a seven-day course. 2. I have written a stop date for the levofloxacin on the and if she goes home before then, just give her one or two tablets as required to finish that course. 3. Will need to follow up on the QuantiFERON Gold but otherwise, I think there is little else to be gained from continued following by the Infectious Disease team, so will go ahead and sign off at this time but please do not hesitate to call us if there are questions or issues with this case.
--- NOTE | 2017-02-08 11:19 | DRSVH ---
PROCEDURE: X-RAY CHEST, TWO VIEWS ([id number]) INDICATIONS: Dyspnea, PNA TECHNIQUE: 2 views of the chest were acquired. COMPARISON: [facility], CR, XR CHEST 1VW (PORTABLE), 02/05/2017, 4:09. [facility], CR, XR CHEST 1VW (PORTABLE), 02/06/2017, 8:49. [facility], CR, XR CHEST 2VW, 2016, 17:56. FINDINGS: Surgical changes and devices: Post median sternotomy and there is fracture of several proximal sterna l wires. Lower neck surgical clips redemonstrated. Lungs and pleura: Decrease in diffuse, widespread bilateral airspace opacities. Mediastinum: Mediastinal contours are normal. Heart size is normal. Bones and chest wall: No suspicious bony abnormalities. Soft tissues appear unremarkable. IMPRESSION: Decreasing bilateral pneumonia. Dictated by: Yash Yu RRA Interpreted: Hanane Arnold MD on 02/08/2017 at 11:17 Transcribed by: SANDEEP on 02/08/2017 at 11:19 Approved by: Hanane Arnold MD, PhD on 02/08/2017 at 17:03
--- NOTE | 2017-02-08 19:15 | NUR ---
Respiratory/weaning off O2 Pt came off bipap this morning and resumed 2L NC with saturations around 96%. Pt was slowly weaned off throughout the day, tolerating well. At RA pt was shifting between 89%-93% and eventually c/o SOB. Pt worked with respiratory therapy and requested to use O2 again, 2L NC replaced. Currently resting in bed on 2L, appears comfortable.
--- NOTE | 2017-02-08 20:27 | PCM.PNMED ---
Subjective Date of Service Feb 08, 2017 Subjective Overnight: No acute event. Patient wearing bipap most of the night, woke up to use the bathroom x2, removed bipap and used NC to ambulate to bathroom with a little SOB that quickly recovered. Today: Patient reports very little improvement in her SOB and cough, but overall feels better. She has no complaint today. No BM since 02/05, but patient does not feel constipated. She is satting well at 2L NC this morning. Exam Vital Signs Vital Sign - Last Date Time Temp Pulse Resp B/P Pulse Ox O2 Delivery O2 Flow Rate FiO2 02/08/17 07:27 104 20 94 Nasal Cannula 2.00 02/08/17 06:05 30 02/08/17 03:27 37.0 110/68 Intake and Output 02/07/17 02/07/17 02/08/17 Cumulative From/Thru 15:00 23:00 07:00 01/30/17 13:45 - 02/08/17 06:03 Intake Total 200 ml 436 ml 92184 ml Output Total 710 ml 600 ml 6560 ml Balance -510 ml -164 ml 5900 ml Intake Oral 200 ml 436 ml 5733 ml IV Total 6727 ml Output Urine Total 710 ml 600 ml 6560 ml # Voids 26 # Bowel Movements 0 2 Exam Constitutional: Middle-aged woman lying on her bed, in no acute distress Head: Normocephalic atraumatic Eyes: PERRLA, EOMI, Scleral Anicteric Mouth: Mouth Normal, Mucous Membranes Moist/[place] Neck: Supple, no Thyromegaly, trachea central. No JVD noted Chest: Diffuse coarse lung sounds with moderate rales and mild expiratory wheezes throughout, improved compared to yesterday exam. Cardiovascular: Regular rate and rhythm. No murmur noted. Abdomen: Soft, nondistended, nontender, bowel sounds present Extremities: Trace bilateral pedal edema Neuro: Alert and oriented 3, motor strength is intact bilaterally, normal speech, delayed relaxation of the brachioradial DTR. Psych: Quiet, restricted affect, but is more conversational today IVs and Medications Medications Reviewed: Medications were reviewed in detail Lab and Diagnostics Result Diagram: 02/08/1751602/08/1717 X-Rays, CTs and MRIs X-RAY CHEST ONE VIEW, PORTABLE 01/30/17 IMPRESSION: No acute cardiopulmonary disease. Dictated by: Yash Yu [facility] Interpreted: Hanane Arnold MD on 01/30/2017 at 15:29 Transcribed by: SANDEEP on 01/30/2017 at 15:29 Approved by: Hanane Arnold MD, PhD on 01/30/2017 at 16:30 CT ANGIO CHEST PULMONARY EMBOLISM 01/30/17 IMPRESSION: 1. No acute process. 2. No pulmonary embolus. 3. Left pleural and lower lobe nodules as described above, largest of which measures 10 mm; followup is recommended as below. 4. Right basilar pleural-parenchymal opacity, presumably reflecting scarring secondary to prior infection/inflammation. Recommend attention to this region on followup imaging studies. Fleischner Society criteria for SOLID lung nodule followup. Nodule size (mm)Low-risk patientHigh-risk patient<6 (single or multiple)No routine followup.Optional CT at 12 months. 6-8 (single or multiple)CT at 6-12 months, then optional CT at 18-24 mo.CT at 6-12 months, then CT at 18-24 months. >8 (single)CT, PET-CT, or biopsy at 3 months. Same as for low-risk pts. >8 (multiple)CT at 3-6 months, then optional CT at 18-24 mo.CT at 3-6 months, then CT at 18-24 months. Recommendations do not apply to lung cancer screening, patients with immunosuppression, or patients with known primary cancer. Dictated by: Tobias Mayer M.D. on 01/30/2017 at 16:19 Approved by: Tobias Mayer M.D. on 01/30/2017 at 16:26 PROCEDURE: X-RAY CHEST, TWO VIEWS IMPRESSION: 1. Findings suspicious for multi-lobar aspiration or pneumonia. 2. Patchy opacities within the more aerated portions of lungs may be associated with fluid overload or multifocal pneumonia. Dictated by: Johana Altamirano M.D. on 02/03/2017 at 18:24 Approved by: Johana Altamirano M.D. on 02/03/2017 at 18:26 PROCEDURE: X-RAY CHEST ONE VIEW, PORTABLE IMPRESSION: Overall, stable examination since yesterday as detailed above Dictated by: Jesus Baker M.D. on 02/04/2017 at 10:44 Approved by: Jesus Baker M.D. on 02/04/2017 at 10:45 PROCEDURE: CT CHEST WITHOUT CONTRAST IMPRESSION: Bilateral widespread areas of consolidation in keeping with multifocal pneumonia and/or aspiration. Please correlate clinically. Recommend continued followup with serial chest radiographs (3 month interval noncontrast chest CT) to document resolution and exclude underlying neoplasm, in particular with respect to the previously described right basilar posterior pleural parenchymal focus, with calcifications. Dictated by: Jesus Baker M.D. on 02/04/2017 at 12:11 Approved by: Jesus Baker M.D. on 02/04/2017 at 12:20 PROCEDURE: X-RAY CHEST ONE VIEW, PORTABLE IMPRESSION: Persistent pulmonary radiopacities suspicious for pneumonia. Dictated by: Johana Altamirano M.D. on 02/05/2017 at 8:44 Approved by: Johana Altamirano M.D. on 02/05/2017 at 8:48 Cardiac Echo Impressions Echo Interpretation Summary by Dr. Karli Decker on 01/31/2017: 1) Mildly dilated left ventricle with normal thickness and severely reduced systolic function (EF 25-30%). 2) Global hypokinesis that is significantly worse in the inferior wall and the septum. 3) Normal right ventricular size with mildly reduced function. 4) Posterior leaflet of the mitral valve is fixed. Mild mitral regurgitation present. 5) Mild to moderate tricuspid regurgitation. 6) Normal pulmonary artery pressures. 7) No prior Echo available for comparison. Findings are suggestive of ischemic cardiomyopathy. Assessment & Plan 61 year old female with Non hodgkin's lymphoma, a Rudy filter placed due to multiple PE, coronary artery disease post CABG, diabetes, and hyperthyroidism, presents to the [facility] emergency department complaining of shortness of breathe and feelings of chest heaviness. Hospital day # 10. 1. Acute hypoxemic and hypercapnic respiratory failure, present on admission, improving today. - Multifactorial. Could be due to HCAP or fluid overload secondary to CHF. - Patient required BiPAP yesterday and overnight but this AM is tolerating oxymask well. Keep BiPAP available in room as needed. - ABG PRN to assess need for BiPAP, altered mental status, and/or desaturations. - Supplemental O2 goals 92-96%. Try to wean off O2 eventually. - Albuterol nebulizers PRN. - Dr. Moreno of pulmonology consulted and we appreciate his input. - Treat the underlying cause(s) as below. 2. Suspected healthcare-acquired pneumonia, not present on admission, acute. - Likely due to human metapneumovirus with possible bacterial superinfection based on the extensive nature of the infiltrate as well as her moderately elevated procalcitonin and the initial left shift, now normalized. - Due to history of stem cell transplant concern for pneumocystis pneumonia. Atovaquone started 02/04/17. - Upon further questioning, patient was not on any immunosuppressive therapy post-transplant, and her bandemia has resolved. Therefore, Atovaquone was stopped on 02/05/17 - Concern for possible fungal lung disease based on history acquired by pulmonology. Micafungin and Doxycycline started 02/04/17, then both stopped on per ID recommendations. - Continue with Levaquin PO as the only antibiotics. Day #5 on antibiotics. Plan for 7 days of antibiotics per ID. - Await cultures and serologies. Blood cultures no growth for 24 hours. Sputum culture negative. Negative Legionella and Strep Ag. - CXR today 02/08 showed decreasing bilateral pneumonia. - Dr. Moreno is following and we appreciate his input. - Dr. Chen consulted and his recommendations are greatly appreciated. 3. Acute on chronic systolic heart failure, present on admission, improved. - Echo on 01/31/17 showed severely reduced systolic function (EF 25-30%). Global hypokinesis that is significantly worse in the inferior wall and the septum. - Findings are suggestive of ischemic cardiomyopathy. - IV fluids stopped. Encourage PO hydration as tolerated. - Concern for fluid overload status so IV Lasix D/C on 02/03/17. - No sign of fluid overload. Will monitor for need for additional diuresis. - Will hold off on starting ACEi as patient's BP has been low. 4. Acute Chest pain. Present on admission. Resolved. - Cardiology studies reassuring so no cardiac intervention needed at this time. - Patient asymptomatic. - Continue telemetry. 5. Acute Kidney injury. Present on admission. Improved. - Renal function normalize today 02/08. - Will encourage PO hydration at this time. - Continue to monitor BMP. - Avoid nephrotoxic meds. 6. Diabetes type 2, chronic, uncontrolled. - Poor controlled with report of non compliance with Metformin. - HgA1C 11 suggests that oral agents will likely not be adequate to treat her diabetes as outpatient - Continue to hold Metformin for now. - Start Lantus to 20 unit QHS 02/08. Will continue to monitor fasting BG and will increase the insulin as needed. - Medium Lispro correction algorithm available PRN. - Diabetic Education ordered. 7. Hypothyroidism, chronic, uncontrolled. - S/p total thyroidectomy from h/o thyroid cancer. TSH elevated (TSH 76, Free T4 0.3) due to non compliance with medications. - Patient was on Synthroid at 325mcg daily before she stopped taking her meds. Will continue 100mcg daily and will increase gradually as outpatient. - Check Free T3 and Free T4 tomorrow - Repeat TSH in 4-6 weeks as outpatient. 8. Severe mitral regurgitation status post valvular repair, ASD with repair. Stable. - Continue outpatient follow ups for this particular issue. 9. Non Hodgkin Lymphoma s/p stem cell transplant in 2001, presume in remission. - Follow up with outpatient Oncology for surveillance. 10. Acute hypomagnesemia. present on admission, ongoing. - Continue to monitor magnesium and replete as needed. 11. Acute UTI, not present on admission, active. - Patient is found to have E. coli on urine culture that is pansensitive, including Levaquin. - Continue with Levaquin until 02/10. - Antiemetic available PRN. - Bowel regimen available PRN. - Antacid available PRN. Dispo: 2-3 days pending improvement in renal function and respiratory status. Pain Evaluation: Adequate Pain Control GI Prophylaxis: Not indicated VTE Prophylaxis: Sub-Q Heparin (Unfractionated) VTE Mechanical Devices: Intermittant Pneumatic CD Resuscitation Status: CPR: Attempt Resuscitation Attending Statement The patient was seen and examined together with Dr. Burr on 02-08-17 and I agree with the history, exam and plan as outlined in the note above. Daysi Burr DO Feb 08, 2017 08:23 Michael Stephen MD Feb 09, 2017 13:33
[2017-02-08] MEDS: Insulin GLARgine 100 Unit/mL Syringe SUBQ SCH (21:41)
[2017-02-09] VITALS (10 sets, daily range): BP systolic 102–122; BP diastolic 63–76; PULSE 90–103; RESP 16–22; O2SAT 92–96
--- NOTE | 2017-02-09 00:58 | NUR ---
Patient is refusing to wear bipap tonight. RN informed
--- NOTE | 2017-02-09 04:54 | NUR ---
Respiratory Pt on 2L NC throughout shift, SpO2 90-95%. Pt refused BiPAP repeatedly this shift. Pt desaturates upon exertion to approx. 84-89%, spontaneous recovery within 10-15 seconds after resting. VSS. No telemetry.
[2017-02-09 05:16] LABS: Mean Corpuscular Hemoglobin 30.8 pg (27.0-35.0); Mean Corpuscular Volume 97.5 fL (81-100); Platelet Count 298 bil/L (150-400)
[2017-02-09 05:40] LABS: BASOPHILS % (AUTO) 1.4 % (0-3); EOSINOPHILS % (AUTO) 0.9 % (0-5); MONOCYTES % (AUTO) 10.4 % (4-12); NEUTROPHILS % (AUTO) 61.6 % (40-74)
[2017-02-09] MEDS: Albuterol 2.5 mg/3 mL Inhalation Solution NEB SCH ×4 (07:26→20:48)
[2017-02-09 08:10] LABS: Cryptococcal Ag Negative (Negative)
[2017-02-09] MEDS: levoFLOXacin 750 mg Tablet PO SCH (08:23)
[2017-02-09] MEDS: Sodium Chloride LOK Flush 10 mL Syringe IVFLUSH SCH ×3 (08:24→20:39)
[2017-02-09] MEDS: Heparin 5,000 Unit/mL Inj SUBQ SCH ×3 (08:27→23:37)
[2017-02-09] MEDS: Insulin LISPRO High-Dose Scale SUBQ PRN ×3 (10:49→18:13)
--- NOTE | 2017-02-09 10:55 | NUR ---
Social Work: Continued Discharge Planning D: Pt discussed in am rounds. Pt is not medically stable for discharge and continues to require oxygen. Pt is not on 02 at baseline. [facility] spoke with PT who is currently recommending home health for the pt as pt is limited with mobility due to desaturation of 02 levels. RT is continuing to follow and pt will likely require 02 at discharge. [facility] met with pt and friend at bedside to discuss discharge recommendations for HH. HH CHOICE LIST PROVIDED. Pt has had [facility] in the past and would like to continue with them. She states she has no other discharge needs other than her oxygen. Pt states that her friend will transport her home. t/c to [facility] with [facility] to provide referral; they can accept the pt. Access provided. F2F in folder for signature. A: Pt who is I at baseline. P: Anticipate pt to discharge home with [facility] for RN, PT and likely home 02. [facility] to continue to follow. PAKO Vallejo
--- NOTE | 2017-02-09 11:49 | NUR ---
Oxygen Patient participated with respiratory therapy today. While on RA, pt ambulated and oxygen dropped to 84%. Pt also became symptomatic. When oxygen 2L NC was placed, pt's oxygen increased to 92% and symptoms resolved. Pt currently resting in bed on 2L NC satting at 95%.
--- NOTE | 2017-02-09 14:07 | NUR ---
[facility]ed [facility] [place] and asked them to run script for Copay. Faxed to [phone] per [employer] request Addendum: 02/09/17 at 1540 by AUTUMN VIZCAINO CM Spoke with Isabella in the pharmacy and the copay is 372.46, patient has not met deductible for the year causing higher than normal copay. Updated [employer]
[2017-02-09] MEDS: Insulin GLARgine 100 Unit/mL Syringe SUBQ SCH (20:39)
--- NOTE | 2017-02-09 20:56 | PCM.PNMED ---
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 She refused BiPAP repeatedly and desaturated upon exertion to approximately 84-89%, spontaneous recovery within 10-15 seconds after resting. VSS. No other acute event. Today: Patient feels "fine." Minimally interactive but is alert and oriented. She states that her best friend, who is a certified mortician in [place], will stay with her for a week to help her with the medications. She admits to feel full quickly and has poor appetite. Otherwise, she denies any CP, SOB, headache , nausea, or vomiting. She has a BM yesterday and voids with no difficulty. Exam Vital Signs Vital Sign - Last Date Time Temp Pulse Resp B/P Pulse Ox O2 Delivery O2 Flow Rate FiO2 02/09/17 11:55 103 20 93 Nasal Cannula 1.00 02/09/17 08:30 36.8 106/69 02/08/17 06:05 30 Intake and Output 02/08/17 02/08/17 02/09/17 Cumulative From/Thru 15:00 23:00 07:00 01/30/17 13:45 - 02/09/17 05:07 Intake Total 200 ml 62613 ml Output Total 6560 ml Balance 200 ml 6100 ml Intake Oral 200 ml 5933 ml IV Total 6727 ml Output Urine Total 6560 ml # Voids 2 28 # Bowel Movements 0 2 Exam Constitutional: Middle-aged woman lying on her bed, in no acute distress Head: Normocephalic atraumatic Eyes: PERRLA, EOMI, Scleral Anicteric Mouth: Mouth Normal, Mucous Membranes Moist/[place] Neck: Supple, no Thyromegaly, trachea central. No JVD noted Chest: Diffuse moderate rales and mild expiratory wheezes throughout, improved compared to yesterday exam. Cardiovascular: Regular rate and rhythm. No murmur noted. Abdomen: Soft, nondistended, nontender, bowel sounds present Extremities: Trace bilateral pedal edema Neuro: Alert and oriented 3, motor strength is intact bilaterally, normal speech, delayed relaxation of the brachioradial DTR. Psych: Quiet, restricted affect, but is more conversational today IVs and Medications Medications Reviewed: Medications were reviewed in detail Lab and Diagnostics Result Diagram: 02/09/17 0454 02/09/17 0454 X-Rays, CTs and MRIs X-RAY CHEST ONE VIEW, PORTABLE 01/30/17 IMPRESSION: No acute cardiopulmonary disease. Dictated by: Yash Yu A Interpreted: Hanane Arnold MD on 01/30/2017 at 15:29 Transcribed by: SANDEEP on 01/30/2017 at 15:29 Approved by: Hanane Arnold MD, PhD on 01/30/2017 at 16:30 CT ANGIO CHEST PULMONARY EMBOLISM 01/30/17 IMPRESSION: 1. No acute process. 2. No pulmonary embolus. 3. Left pleural and lower lobe nodules as described above, largest of which measures 10 mm; followup is recommended as below. 4. Right basilar pleural-parenchymal opacity, presumably reflecting scarring secondary to prior infection/inflammation. Recommend attention to this region on followup imaging studies. Fleischner Society criteria for SOLID lung nodule followup. Nodule size (mm)Low-risk patientHigh-risk patient<6 (single or multiple)No routine followup.Optional CT at 12 months. 6-8 (single or multiple)CT at 6-12 months, then optional CT at 18-24 mo.CT at 6-12 months, then CT at 18-24 months. >8 (single)CT, PET-CT, or biopsy at 3 months. Same as for low-risk pts. >8 (multiple)CT at 3-6 months, then optional CT at 18-24 mo.CT at 3-6 months, then CT at 18-24 months. Recommendations do not apply to lung cancer screening, patients with immunosuppression, or patients with known primary cancer. Dictated by: Tobias Mayer M.D. on 01/30/2017 at 16:19 Approved by: Tobias Mayer M.D. on 01/30/2017 at 16:26 PROCEDURE: X-RAY CHEST, TWO VIEWS IMPRESSION: 1. Findings suspicious for multi-lobar aspiration or pneumonia. 2. Patchy opacities within the more aerated portions of lungs may be associated with fluid overload or multifocal pneumonia. Dictated by: Johana Altamirano M.D. on 02/03/2017 at 18:24 Approved by: Johana Altamirano M.D. on 02/03/2017 at 18:26 PROCEDURE: X-RAY CHEST ONE VIEW, PORTABLE IMPRESSION: Overall, stable examination since yesterday as detailed above Dictated by: Jesus Baker M.D. on 02/04/2017 at 10:44 Approved by: Jesus Baker M.D. on 02/04/2017 at 10:45 PROCEDURE: CT CHEST WITHOUT CONTRAST IMPRESSION: Bilateral widespread areas of consolidation in keeping with multifocal pneumonia and/or aspiration. Please correlate clinically. Recommend continued followup with serial chest radiographs (3 month interval noncontrast chest CT) to document resolution and exclude underlying neoplasm, in particular with respect to the previously described right basilar posterior pleural parenchymal focus, with calcifications. Dictated by: Jesus Baker M.D. on 02/04/2017 at 12:11 Approved by: Jesus Baker M.D. on 02/04/2017 at 12:20 PROCEDURE: X-RAY CHEST ONE VIEW, PORTABLE IMPRESSION: Persistent pulmonary radiopacities suspicious for pneumonia. Dictated by: Johana Altamirano M.D. on 02/05/2017 at 8:44 Approved by: Johana Altamirano M.D. on 02/05/2017 at 8:48 Cardiac Echo Impressions Echo Interpretation Summary by Dr. Karli Decker on 01/31/2017: 1) Mildly dilated left ventricle with normal thickness and severely reduced systolic function (EF 25-30%). 2) Global hypokinesis that is significantly worse in the inferior wall and the septum. 3) Normal right ventricular size with mildly reduced function. 4) Posterior leaflet of the mitral valve is fixed. Mild mitral regurgitation present. 5) Mild to moderate tricuspid regurgitation. 6) Normal pulmonary artery pressures. 7) No prior Echo available for comparison. Findings are suggestive of ischemic cardiomyopathy. Assessment & Plan 61 year old female with Non hodgkin's lymphoma, a Rudy filter placed due to multiple PE, coronary artery disease post CABG, diabetes, and hyperthyroidism, presents to the [facility] emergency department complaining of shortness of breathe and feelings of chest heaviness. Hospital day # 11. 1. Acute hypoxemic and hypercapnic respiratory failure, present on admission, improved. - Multifactorial. Could be due to HCAP or fluid overload secondary to CHF. - Patient does well with NC on 2L, but desat on RA. Keep BiPAP available in room as needed. - ABG PRN to assess need for BiPAP, altered mental status, and/or desaturations. - Supplemental O2 goals 92-96%. Patient will likely need to go home with O2. - Albuterol nebulizers PRN. - Dr. Moreno of pulmonology consulted and we appreciate his input. - Treat the underlying cause(s) as below. 2. Suspected healthcare-acquired pneumonia, not present on admission, improved. - Likely due to human metapneumovirus with possible bacterial superinfection based on the extensive nature of the infiltrate as well as her moderately elevated procalcitonin and the initial left shift, now normalized. - Due to history of stem cell transplant concern for pneumocystis pneumonia. Atovaquone started 02/04/17. - Upon further questioning, patient was not on any immunosuppressive therapy post-transplant, and her bandemia has resolved. Therefore, Atovaquone was stopped on 02/05/17 - Concern for possible fungal lung disease based on history acquired by pulmonology. Micafungin and Doxycycline started 02/04/17, then both stopped on per ID recommendations. - Continue with Levaquin PO as the only antibiotics. Day #5 on antibiotics. Plan for 7 days of antibiotics per ID. - Await cultures and serologies. Blood cultures no growth for 24 hours. Sputum culture negative. Negative Legionella and Strep Ag. TB Quantiferon pending. - CXR 02/08 showed decreasing bilateral pneumonia. - Dr. Moreno consulted and we appreciate his input. - Dr. Chen consulted and his recommendations are greatly appreciated. 3. Acute on chronic systolic heart failure, present on admission, improved. - Echo on 01/31/17 showed severely reduced systolic function (EF 25-30%). Global hypokinesis that is significantly worse in the inferior wall and the septum. - Findings are suggestive of ischemic cardiomyopathy. - IV fluids stopped. Encourage PO hydration as tolerated. - Concern for fluid overload status so IV Lasix D/C on 02/03/17. - No sign of fluid overload. Will monitor for need for additional diuresis. - Will hold off on starting ACEi as patient's BP has been low. 4. Acute Chest pain. Present on admission. Resolved. - Cardiology studies reassuring so no cardiac intervention needed at this time. - Patient asymptomatic. - Continue telemetry. 5. Acute Kidney injury. Present on admission. Improved. - Renal function normalize 02/08. - Will encourage PO hydration at this time. - Continue to monitor BMP. - Avoid nephrotoxic meds. 6. Diabetes type 2, chronic, uncontrolled. - Poor controlled with report of non compliance with Metformin. - HgA1C 11 suggests that oral agents will likely not be adequate to treat her diabetes as outpatient - Start Lantus to 20 unit QHS 02/08. Will continue to monitor fasting BG and will increase the insulin as needed. - Solostar pen prescription given to SW to plan for discharge. Patient will likely need to have both long-acting and meal time insulin at discharge. Suspect that her nausea 4 months ago was due to Metformin, so will D/C Metformin at discharge. - Medium Lispro correction algorithm available PRN. - Diabetic Education ordered. Will have nursing education on insulin use. 7. Hypothyroidism, chronic, uncontrolled. - S/p total thyroidectomy from h/o thyroid cancer. TSH elevated (TSH 76, Free T4 0.3) due to non compliance with medications. - Patient was on Synthroid at 325mcg daily before she stopped taking her meds. Will continue 100mcg daily and will increase gradually as outpatient. - Check Free T3 and Free T4 tomorrow - Repeat TSH in 4-6 weeks as outpatient. 8. Severe mitral regurgitation status post valvular repair, ASD with repair. Stable. - Continue outpatient follow ups for this particular issue. 9. Non Hodgkin Lymphoma s/p stem cell transplant in 2001, presume in remission. - Follow up with outpatient Oncology for surveillance. 10. Acute hypomagnesemia. present on admission, ongoing. - Continue to monitor magnesium and replete as needed. 11. Acute UTI, not present on admission, active. - Patient is found to have E. coli on urine culture that is pansensitive, including Levaquin. - Continue with Levaquin until 02/10. - Antiemetic available PRN. - Bowel regimen available PRN. - Antacid available PRN. Dispo: Likely to be discharge tomorrow with O2 and insulin. Pain Evaluation: Adequate Pain Control GI Prophylaxis: Not indicated VTE Prophylaxis: Sub-Q Heparin (Unfractionated) VTE Mechanical Devices: Intermittant Pneumatic CD Resuscitation Status: CPR: Attempt Resuscitation Attending Statement The patient was seen and examined together with Dr. Burr on 02-09-17 and I agree with the history, exam and plan as outlined in the note above. Daysi Burr DO Feb 09, 2017 11:59 Michael Stephen MD Feb 10, 2017 13:07
[2017-02-10 03:14] VITALS: PULSE 93; RESP 22; O2SAT 97
[2017-02-10 04:01] VITALS: BP 101/65; PULSE 96; RESP 18; O2SAT 96
[2017-02-10 05:05] LABS: Mean Corpuscular Hemoglobin 30.1 pg (27.0-35.0); Mean Corpuscular Volume 97.1 fL (81-100); Platelet Count 300 bil/L (150-400)
[2017-02-10 05:32] LABS: BASOPHILS % (AUTO) 0 % (0-3); EOSINOPHILS % (AUTO) 1 % (0-5); MONOCYTES % (AUTO) 15 % (4-12); NEUTROPHILS % (AUTO) 69 % (40-74)
[2017-02-10 07:59] VITALS: BP 116/70; PULSE 93; RESP 16; O2SAT 97
[2017-02-10 09:40] VITALS: PULSE 93; RESP 20; O2SAT 96
[2017-02-10] MEDS: Albuterol 2.5 mg/3 mL Inhalation Solution NEB SCH ×2 (09:40→14:33)
[2017-02-10] MEDS: Sodium Chloride LOK Flush 10 mL Syringe IVFLUSH SCH (09:42)
[2017-02-10] MEDS: levoFLOXacin 750 mg Tablet PO SCH (09:42)
[2017-02-10] MEDS: Insulin LISPRO High-Dose Scale SUBQ PRN ×2 (09:43→13:14)
[2017-02-10] MEDS: Heparin 5,000 Unit/mL Inj SUBQ SCH (09:45)
--- NOTE | 2017-02-10 09:49 | NUR ---
Home Oxygen Eval Room air saturation 88% at rest
[2017-02-10] MEDS ORDERED: LEVO100T6 PO (11:45)
[2017-02-10] MEDS ORDERED: METO25TA99 PO (11:45)
[2017-02-10] MEDS ORDERED: INSU100V7 SUBQ (11:45)
[2017-02-10] MEDS ORDERED: INSLIS SUBQ (11:45)
[2017-02-10] MEDS ORDERED: CITA40TA13 PO (11:45)
[2017-02-10] MEDS ORDERED: ROPI0.252 PO (11:45)
[2017-02-10] MEDS ORDERED: OXYC5TAB72 PO (11:45)
[2017-02-10] MEDS ORDERED: LIP40 PO (11:45)
[2017-02-10] MEDS ORDERED: SYRI-233 MC (11:52)
[2017-02-10 12:00] VITALS: BP 100/42; PULSE 92; RESP 16; O2SAT 98
[2017-02-10] MEDS ORDERED: ALBU8.5H2 INHALATION (12:06)
--- NOTE | 2017-02-10 12:13 | PCM.DIMED ---
Daysi Burr DO 02/10/17 0758: Discharge Instructions Date of Service Feb 10, 2017 Dates of Hospitalization Jan 30, 2017 at 18:19 Discharge Diagnosis Discharge Diagnosis 1. Acute hypoxemic and hypercapnic respiratory failure, present on admission, improved. 2. Healthcare-acquired pneumonia, not present on admission, improved. 3. Acute on chronic systolic heart failure, present on admission, improved. 4. Acute Chest pain. Present on admission. Resolved. 5. Acute Kidney injury. Present on admission. Improved. 6. Diabetes type 2, chronic, uncontrolled. 7. Hypothyroidism, chronic, uncontrolled. 8. Severe mitral regurgitation status post valvular repair, ASD with repair. Stable. 9. Non Hodgkin Lymphoma s/p stem cell transplant in 2001, presume in remission. 10. Acute hypomagnesemia. present on admission, stable. 11. Acute UTI, not present on admission, active. Medication Instructions See below Diet Heart Healthy, Diabetic Activity Home Health Phyical Therapy Call your provider Fever or Chills, Shortness of breath, Chest pain, Vomitting, Excessive diarrhea , Weakness (unilateral) Patient Instructions - It is very important that you take your medications daily as directed. Because you are not sure if you still have any medication at home, I sent all new scripts today. - Because you report nausea while taking Metformin and your blood sugar is uncontrolled, we started you on both long-acting and meal-time insulin. Please follow the instructions carefully. You have the glucometer kit at home. Please continue to check your blood sugar at meal times and bed time. If you are out of the test strips, please contact your PCP to get more. You might also discuss with your PCP about study for gastroparesis. - You have congestive heart failure and should be on Lasix, Metoprolol, and Lisinopril. However, given your low blood pressure in the hospital, I stopped the Lasix and Lisinopril. Please follow up with your primary to possibly resume these once your blood pressure is more stable. You will need to check your blood work (complete metabolic panel and CBC) in 2 weeks. - You also have severe, uncontrolled hypothyroidism. We started you on a low dose of Levothyroxine 100mcg. You will need to check your TSH and Free T4 in 1- 2 weeks and your PCP will adjust your dose. - You will need to go home with Oxygen given your low oxygen saturation in the hospital. You can also use the Albuterol inhaler as needed for shortness of breath. You will need to talk to your PCP about starting a nebulizer if your symptoms are not well controlled with the inhaler. - You had pneumonia, possibly both viral and bacterial. You were also found to have an E. coli UTI. You had 7 days of antibiotics and finished the course as of today. No further need for antibiotics at this point. You will need to have a follow-up CXR in 2-3 weeks. - You kidney function improved at discharge, but try to avoid taking any NSAIDs. You were given 90 tablets of Oxycodone 5mg to use as needed for your chronic back pain and peripheral neuropathy. Your PCP might start you on a different pain medication. Please use it sparingly as needed for severe pain. You can take Tylenol for mild-moderate pain. Do not drink alcohol or drive while taking the Oxycodone. - IF you develop any chest pain, SOB, increased swelling, headache, lethargy, nausea, or vomiting, please go to the ER. - You will need to have home health physical therapy and nursing. Follow-up Provider: [facility] Follow-up with PCP in: 1 week Michael Stephen MD 02/11/17 1352: Discharge Instructions Attending's Statement The patient was seen and examined together with Dr. Burr on 02-10-17 and I agree with the history, exam and plan as outlined in the note above. Daysi Burr DO Feb 10, 2017 07:58 Michael Stephen MD Feb 11, 2017 13:52
--- NOTE | 2017-02-10 13:39 | NUR ---
Social Work: Discharge D: Pt discussed in am rounds. Pt is medically stable for discharge home with [facility]. GED TUTOR met with pt at bedside to confirm dcp and assess for any unmet needs. Pt denies any other home needs and just would like for [facility] to come out for RN and PT. She states her friend is transporting. RT is arranging for home 02. t/c to [facility] with [facility] to notify of discharge. F2F obtained by . Faxed to [facility]. A: [place] P: Pt to discharge home with [facility] for RN, PT. Florence Vinson, GED TUTOR
[2017-02-10 14:34] VITALS: PULSE 90; RESP 20; O2SAT 97
--- NOTE | 2017-02-10 15:00 | NUR ---
Discharge note Patient a/o x 3, up indep in room, steady gait. Patient denies pain or nausea, but has dyspnea on exertion. Lungs with crackles bilat, encouraged to use acapella q 1 hr while awake and neb tx administered per RTC. Diabetic teaching done with patient. Patient able to do return demo of glucose checks and drawing up Insulin and administering. IV SL removed intact. Patient given discharge instructions, medication reconciliation, info on diabetes, Insulin, home O2, pneumonia and prescriptions. All questions answered. Patient taken to car with home O2 tank and all belongings and discharged home with friend.
--- NOTE | 2017-02-10 21:50 | PCM.DC.MED ---
Discharge Summary Date of Service Feb 10, 2017 Dates of Hospitalization Date of Hospital Admission Jan 30, 2017 at 18:19 Date of Discharge: Feb 10, 2017 Providers: Admitting Physician: Franco Sarmiento MD Primary Care Physician: Tracey Bar MD Attending Physician: Franco Sarmiento MD Diagnosis at Time of Discharge Diagnosis at Time of Discharge 1. Acute hypoxemic and hypercapnic respiratory failure, present on admission, improved. 2. Healthcare-acquired pneumonia, not present on admission, improved. 3. Acute on chronic systolic heart failure, present on admission, improved. 4. Acute Chest pain. Present on admission. Resolved. 5. Acute Kidney injury. Present on admission. Improved. 6. Diabetes type 2, chronic, uncontrolled. 7. Hypothyroidism, chronic, uncontrolled. 8. Severe mitral regurgitation status post valvular repair, ASD with repair. Stable. 9. Non Hodgkin Lymphoma s/p stem cell transplant in 2001, presume in remission. 10. Acute hypomagnesemia. present on admission, stable. 11. Acute UTI, not present on admission, active. Consultations Cardiology, Pulmonology, and ID Procedures XRay, CTs & MRIs X-RAY CHEST ONE VIEW, PORTABLE 01/30/17 IMPRESSION: No acute cardiopulmonary disease. Dictated by: Yash Yu [facility] Interpreted: Hanane Arnold MD on 01/30/2017 at 15:29 Transcribed by: SANDEEP on 01/30/2017 at 15:29 Approved by: Hanane Arnold MD, PhD on 01/30/2017 at 16:30 CT ANGIO CHEST PULMONARY EMBOLISM 01/30/17 IMPRESSION: 1. No acute process. 2. No pulmonary embolus. 3. Left pleural and lower lobe nodules as described above, largest of which measures 10 mm; followup is recommended as below. 4. Right basilar pleural-parenchymal opacity, presumably reflecting scarring secondary to prior infection/inflammation. Recommend attention to this region on followup imaging studies. Fleischner Society criteria for SOLID lung nodule followup. Nodule size (mm)Low-risk patientHigh-risk patient<6 (single or multiple)No routine followup.Optional CT at 12 months. 6-8 (single or multiple)CT at 6-12 months, then optional CT at 18-24 mo.CT at 6-12 months, then CT at 18-24 months. >8 (single)CT, PET-CT, or biopsy at 3 months. Same as for low-risk pts. >8 (multiple)CT at 3-6 months, then optional CT at 18-24 mo.CT at 3-6 months, then CT at 18-24 months. Recommendations do not apply to lung cancer screening, patients with immunosuppression, or patients with known primary cancer. Dictated by: Tobias Mayer M.D. on 01/30/2017 at 16:19 Approved by: Tobias Mayer M.D. on 01/30/2017 at 16:26 PROCEDURE: X-RAY CHEST, TWO VIEWS IMPRESSION: 1. Findings suspicious for multi-lobar aspiration or pneumonia. 2. Patchy opacities within the more aerated portions of lungs may be associated with fluid overload or multifocal pneumonia. Dictated by: Johana Altamirano M.D. on 02/03/2017 at 18:24 Approved by: Johana Altamirano M.D. on 02/03/2017 at 18:26 PROCEDURE: X-RAY CHEST ONE VIEW, PORTABLE IMPRESSION: Overall, stable examination since yesterday as detailed above Dictated by: Jesus Baker M.D. on 02/04/2017 at 10:44 Approved by: Jesus Baker M.D. on 02/04/2017 at 10:45 PROCEDURE: CT CHEST WITHOUT CONTRAST IMPRESSION: Bilateral widespread areas of consolidation in keeping with multifocal pneumonia and/or aspiration. Please correlate clinically. Recommend continued followup with serial chest radiographs (3 month interval noncontrast chest CT) to document resolution and exclude underlying neoplasm, in particular with respect to the previously described right basilar posterior pleural parenchymal focus, with calcifications. Dictated by: Jesus Baker M.D. on 02/04/2017 at 12:11 Approved by: Jesus Baker M.D. on 02/04/2017 at 12:20 PROCEDURE: X-RAY CHEST ONE VIEW, PORTABLE IMPRESSION: Persistent pulmonary radiopacities suspicious for pneumonia. Dictated by: Johana Altamirano M.D. on 02/05/2017 at 8:44 Approved by: Johana Altamirano M.D. on 02/05/2017 at 8:48 Cardiac Echo Impression Echo Interpretation Summary by Dr. Karli Decker on 01/31/2017: 1) Mildly dilated left ventricle with normal thickness and severely reduced systolic function (EF 25-30%). 2) Global hypokinesis that is significantly worse in the inferior wall and the septum. 3) Normal right ventricular size with mildly reduced function. 4) Posterior leaflet of the mitral valve is fixed. Mild mitral regurgitation present. 5) Mild to moderate tricuspid regurgitation. 6) Normal pulmonary artery pressures. 7) No prior Echo available for comparison. Findings are suggestive of ischemic cardiomyopathy. Other Diagnostics Stress test: IMPRESSION: Abnormal nuclear cardiac stress study: A. Normal pharmacologic response to Lexiscan without chest pain or diagnostic electrocardiographic changes. B. Mildly dilated left ventricle with moderately severe left ventricular systolic dysfunction with severe hypokinesis involving the septum and inferior wall. C. Moderate hypoperfusion involving the interventricular septum, which may be consistent with the patient's interventricular conduction delay. There appears to be a region of fixed, moderately severe hypoperfusion involving the inferior wall, consistent with probably a nontransmural infarction. I do not see any evidence of a reversible perfusion abnormality that would suggest ischemia. Clinical correlation suggested. Dictated by: Sp Price M.D. on 01/31/2017 at 16:32 Brief History Per H&P: Trina Brothers is a 61 year old female with Non hodgkin's lymphoma, a Rudy filter placed due to multiple PE, coronary artery disease, diabetes , and hyperthyroidism, presents to the [facility] emergency department complaining of shortness of breathe and feelings of chest heaviness onset a couple of days ago The substernal chest pain onset two days ago, worsening at 0600 this morning. The pain is rated 5/10 and described as "heaviness," with radiation to her left side. Associated symptoms include shortness of breath, headache, and bilateral leg swelling. Symptom is aggravated by mild activity (eg. walking) and supine position. Denies relieving factors. The patient also reports recent weight gain after stopping all of her medications about 4 months ago because they "made her nauseous." She also had her insurance changed and she can no longer see her PCP. Patient has non hodgkins with cardiomyopathy, valve replacement Case discussed with Dr Casey. Troponin negative but given her extensive cardiac history and comorbidity she will be admitted for a HI rule out workup Hospital Course 61 year old female with Non hodgkin's lymphoma, a [place] filter placed due to multiple PE, coronary artery disease post CABG, diabetes, and hyperthyroidism, presents to the [facility] emergency department complaining of shortness of breathe and feelings of chest heaviness. 1. Acute hypoxemic and hypercapnic respiratory failure, present on admission, improved. - Multifactorial. Could be due to HCAP or fluid overload secondary to CHF. - Patient does well with NC on 2L, but desat on RA. Keep BiPAP available in room as needed. - ABG PRN to assess need for BiPAP, altered mental status, and/or desaturations. - Supplemental O2 goals 92-96%. Patient was discharged home with O2. - Albuterol nebulizers PRN. - Dr. Moreno of pulmonology consulted and we appreciate his input. - Treat the underlying cause(s) as below. 2. Suspected healthcare-acquired pneumonia, not present on admission, improved. - Likely due to human metapneumovirus with possible bacterial superinfection based on the extensive nature of the infiltrate as well as her moderately elevated procalcitonin and the initial left shift, now normalized. - Due to history of stem cell transplant concern for pneumocystis pneumonia. Atovaquone started 02/04/17. - Upon further questioning, patient was not on any immunosuppressive therapy post-transplant, and her bandemia has resolved. Therefore, Atovaquone was stopped on 02/05/17 - Concern for possible fungal lung disease based on history acquired by pulmonology. Micafungin and Doxycycline started 02/04/17, then both stopped on per ID recommendations. - Patient had Levaquin PO as the only antibiotics for 7 days. - Blood cultures no growth for 24 hours. Sputum culture negative. Negative Legionella and Strep Ag. TB Quantiferon pending. - CXR 02/08 showed decreasing bilateral pneumonia. Patient will need to have a follow up CXR in 2 weeks. - Dr. Moreno consulted and we appreciate his input. - Dr. Chen consulted and his recommendations are greatly appreciated. 3. Acute on chronic systolic heart failure, present on admission, improved. - Echo on 01/31/17 showed severely reduced systolic function (EF 25-30%). Global hypokinesis that is significantly worse in the inferior wall and the septum. - Findings are suggestive of ischemic cardiomyopathy. - IV fluids stopped. Encourage PO hydration as tolerated. - Concern for fluid overload status so IV Lasix D/C on 02/03/17. - No sign of fluid overload. Will monitor for need for additional diuresis. - Will hold off on starting ACEi as patient's BP has been low. PCP will need to re-evaluate and consider resume her home dose of Lisinopril 5mg daily. Need to watch BP closely as patient reports to have low BP usually. - Continue home Metoprolol at discharge. 4. Acute Chest pain. Present on admission. Resolved. - Cardiology studies reassuring so no cardiac intervention needed at this time. - Patient asymptomatic. - Regular rhythm and rate on Telemetry 5. Acute Kidney injury. Present on admission. Improved. - Renal function normalized on 02/08/17. - Will encourage PO hydration at this time. - Continue to monitor BMP. - Avoid nephrotoxic meds. 6. Diabetes type 2, chronic, uncontrolled. - Poor controlled with report of non compliance with Metformin. - HgA1C 11 suggests that oral agents will likely not be adequate to treat her diabetes as outpatient - Start Lantus to 20 unit QHS 02/08. Will continue to monitor fasting BG and will increase the insulin as needed. - Solostar pen prescription given to SW to plan for discharge. However, because of high copay, patient was discharge on Lantus 20 units QHS and meal time Humalin. Suspect that her nausea 4 months ago was due to Metformin, so D/C Metformin at discharge. Patient will likely need gastroparesis workup as out patient. - Medium Lispro correction algorithm available PRN during the hospital. - Diabetic Education ordered. She also had nursing education on insulin use. 7. Hypothyroidism, chronic, uncontrolled. - S/p total thyroidectomy from h/o thyroid cancer. TSH elevated (TSH 76, Free T4 0.3) due to non compliance with medications. - Patient was on Synthroid at 325mcg daily before she stopped taking her meds. Will continue 100mcg daily and will increase gradually as outpatient. - Repeat TSH in 2 weeks as outpatient. 8. Severe mitral regurgitation status post valvular repair, ASD with repair. Stable. - Continue outpatient follow ups for this particular issue. 9. Non Hodgkin Lymphoma s/p stem cell transplant in 2001, presume in remission. - Follow up with outpatient Oncology for surveillance. 10. Acute hypomagnesemia. present on admission, ongoing. - Continue to monitor magnesium and replete as needed. 11. Acute UTI, not present on admission, active. - Patient is found to have E. coli on urine culture that is pansensitive, including Levaquin. - Finished Levaquin on 02/10/17. - Antiemetic available PRN. - Bowel regimen available PRN. - Antacid available PRN. Dispo: Patient has history of medication noncompliance. Will need to follow up with PCP closely. She was given a script of Oxycodone 5mg TID PRN pain #90. She reports using this for chronic back pain and neuropathic pain. Consider starting Gabapentin as outpatient. Exam Vital Signs (Last) Date Time Temp Pulse Resp B/P Pulse Ox O2 Delivery O2 Flow Rate FiO2 02/10/17 09:40 93 20 96 Nasal Cannula 2.00 02/10/17 07:59 36.7 116/70 02/08/17 06:05 30 Exam Constitutional: Middle-aged woman lying on her bed, in no acute distress Head: Normocephalic atraumatic Eyes: PERRLA, EOMI, Scleral Anicteric Mouth: Mouth Normal, Mucous Membranes Moist/Lerna Neck: Supple, no thyromegaly, trachea central. No JVD noted Chest: Diffuse moderate rales and mild expiratory wheezes throughout. Cardiovascular: Regular rate and rhythm. No murmur noted. Abdomen: Soft, nondistended, nontender, bowel sounds present Extremities: Trace bilateral pedal edema Neuro: Alert and oriented 3, motor strength is intact bilaterally, normal speech, delayed relaxation of the brachioradial DTR. Psych: Quiet, restricted affect, but is more conversational today Test 01/30/17 13:47 01/30/17 23:05 01/31/17 05:36 02/02/17 05:10 D-Dimer 1.1mg/L (<0.50) Hemoglobin A1c 11.0% (4.8-5.6) Total Creatine Kinase 78U/L (21-215) Creatine Kinase MB 1.8ng/mL (0.0-5.3) Creatine Kinase MB % % (0.0-5.0) Thyroid Stimulating Hormone (TSH) 67.580uIU/mL (0.450-4.500) Free Thyroxine Index 0.3 (1.2-4.9) Thyroxine (T4) 1.4ug/dL (4.5-12.0) Triiodothyronine (T3) Uptake 24% (24-39) Triglycerides Level 609mg/dL (0-149) Cholesterol Level 328mg/dL (100-199) LDL Cholesterol, Calculated 168.200mg/dL (0-99) VLDL Cholesterol 121.800mg/dL HDL Cholesterol 38mg/dL (>39) Cholesterol/HDL Ratio 8.63 (0.0-4.4) Test 02/03/17 21:00 02/04/17 12:10 02/04/17 16:30 02/05/17 04:56 Pro-B-Type Natriuretic Peptide 6762pg/mL (0-287) Urine Legionella pneumophilia Ag Negative (Negative) Fungal Antibodies <31pg/mL (.) HIV (1&2) Ag and Ab, 4th Generation Non reactive (Non Reactive) Aspergillus galactomannan Antigen 0.06Index (0.00-0.49) Absolute Lymphocytes (auto) 1.0x10E3/uL (0.7-3.1) Absolute Monocytes (auto) 0.7x10E3/uL (0.1-0.9) Absolute Eosinophils (auto) 0.0x10E3/uL (0.0-0.4) Absolute Basophils (auto) 0.0x10E3/uL (0.0-0.2) Neutrophils % 76% (.) Lymphocytes % 14% (.) Monocytes % 10% (.) Eosinophils % 0% (.) Basophils % 0% (.) Immature Granulocytes 0% (.) Absolute Neutrophil 5.4x10E3/uL (1.4-7.0) Immature Blood Cells (.) Hematology Comments (.) Lactic Acid Level 1.1mmol/L (0.4-2.0) Troponin T 0.010ug/L (0.0-0.011) Absolute Immature Gran (Cell Imm) 0.0x10E3/uL (0.0-0.1) Percent CD4 Cells 41.9% (30.8-58.5) Absolute CD4 Count 419/uL (359-1519) Test 02/06/17 05:00 02/06/17 12:01 02/07/17 04:53 02/08/17 05:17 Phosphorus Level 1.9mg/dL (2.5-4.9) Lactate Dehydrogenase 229U/L (100-190) Cryptococcus Antigen Negative (Negative) Hepatitis C Antibody <0.1s/co ratio (0.0-0.9) TB Test (QFT) Gold In Tube Indeterminate (Negative) TB Test (QFT) Incubation Comment (.) TB Test (QFT) Mitogen 0.18IU/mL (.) TB Test (QFT) Antigen 0.05IU/mL (.) TB Test (QFT) Antigen Minus Nil <0.00IU/mL (.) TB Test (QFT) TB - Nil 0.08IU/mL (.) TB Test (QFT) Positive Criteria Comment (.) TB Test (QFT) Interpretation Comment (.) Nucleated Red Blood Cells 1/100 WBC (0-24) Metamyelocytes % 2% (0-0) Myelocytes % 2% (0-0) Test 02/09/17 04:54 02/10/17 04:35 Procalcitonin 0.16ng/mL (0.00-0.08) Free Thyroxine 1.32ng/dL (0.82-1.77) Free Triiodothyronine 1.2pg/mL (2.0-4.4) White Blood Count 10.7th/mm3 (3.8-10.1) Red Blood Count 2.79mil/mm3 (3.90-5.20) Hemoglobin 8.4g/dL (12.0-15.6) Hematocrit 27.1% (35.0-46.0) Mean Corpuscular Volume 97.1fL (81-100) Mean Corpuscular Hemoglobin 30.1pg (27.0-35.0) Mean Corpuscular Hemoglobin Concent 31.0% (32.0-37.0) Red Cell Distribution Width 13.0% (12.3-15.4) Platelet Count 300bil/L (150-400) Neutrophils (%) (Auto) 69% (40-74) Lymphocytes (%) (Auto) 10% (14-46) Monocytes (%) (Auto) 15% (4-12) Eosinophils (%) (Auto) 1% (0-5) Basophils (%) (Auto) 0% (0-3) Band Neutrophils % 5% (1-5) Sodium Level 139mEq/L (134-144) Potassium Level 3.9mEq/L (3.5-5.2) Chloride Level 97mEq/L (97-108) Carbon Dioxide Level 30mmol/L (18-29) Blood Urea Nitrogen 22mg/dL (8-27) Creatinine 1.03mg/dL (0.57-1.00) Estimat Glomerular Filtration Rate 78mL/min (>59) Glucose Level 186mg/dL (60-99) Calcium Level 9.6mg/dL (8.5-10.1) Magnesium Level 1.3mg/dL (1.6-2.6) Total Bilirubin 0.4mg/dL (0.0-1.2) Aspartate Amino Transf (AST/SGOT) 15U/L (0-50) Alanine Aminotransferase (ALT/SGPT) 12U/L (0-32) Alkaline Phosphatase 61U/L (25-165) Total Protein 5.8g/dL (6.4-8.4) Albumin 3.2g/dL (3.4-5.0) Microbiology Results Respiratory Viral PCR positive for HUMAN METAPNEUMOVIRUS. Urine culture positive for E. coli. Blood/sputum/fungal cultures and gram stain were negative. TB Quantiferon pending. Discharge Medications Discharge Medications Albuterol HFA (Proair HFA) 8.5 Gm Hfa.aer.ad 2 PUFFS INHALATION Q4H Prescribed by: DAYSI BAR DO Atorvastatin (Lipitor) 40 Mg Tablet 40 MG PO HS Prescribed by: DAYSI BAR DO Citalopram (Citalopram) 40 Mg Tablet 40 MG PO DAILY Prescribed by: DAYSI BAR DO Insulin Glargine (Lantus U100 Insulin Vial) 100 Unit/Ml Vial 20 UNIT SUBQ HS Prescribed by: DAYSI BAR DO Levothyroxine (Levothyroxine) 100 Mcg Tablet 100 MCG PO DAILYAC Prescribed by: DAYSI BAR DO Metoprolol Succinate ER (Metoprolol Succinate ER) 25 Mg Tab.er.24h 25 MG PO DAILY Prescribed by: DAYSI BAR DO As needed Insulin Human Lispro (HumaLOG U100 Insulin Vial) 100 Unit/Ml Unit 0 UNIT SUBQ PRN PRN PRN hyperglycemia Check blood sugars before meals and at bedtime. Use correction factor only before meals. Blood Sugar Lispro Correction: <151, 0 units; 151-175, 1 unit; 176-200, 2 units; 201-225, 3 units; 226-250, 4 units; 251-275, 5 units; 276-300 , 6 units; 301-325, 7 units; 326-350, 8 units; 351-375, 9 units; 376-400, 10 units; >400, 12 units. Prescribed by: DAYSI BAR DO Ropinirole (Ropinirole) 0.25 Mg Tablet 0.5 MG PO HS PRN PRN RESTLESS LEG Prescribed by: DAYSI BAR DO oxyCODONE (oxyCODONE) 5 Mg Tablet 5 MG PO TID PRN PRN For Pain Prescribed by: DAYSI BAR DO Durable Medical Equipment Syring W-Ndl,Disp,Insul,0.3ML (Insulin Syringe) 1 Each Disp.syrin 1 EACH [facility] (DME ) Prescribed by: DAYSI BAR DO Additional med instructions See below Followup Plan Disposition: Home with home health Discharge Diet: Heart Healthy, Diabetic Discharge Activity: Home Health Phyical Therapy Patient Instructions - It is very important that you take your medications daily as directed. Because you are not sure if you still have any medication at home, I sent all new scripts today. - Because you report nausea while taking Metformin and your blood sugar is uncontrolled, we started you on both long-acting and meal-time insulin. Please follow the instructions carefully. You have the glucometer kit at home. Please continue to check your blood sugar at meal times and bed time. If you are out of the test strips, please contact your PCP to get more. You might also discuss with your PCP about study for gastroparesis. - You have congestive heart failure and should be on Lasix, Metoprolol, and Lisinopril. However, given your low blood pressure in the hospital, I stopped the Lasix and Lisinopril. Please follow up with your primary to possibly resume these once your blood pressure is more stable. You will need to check your blood work (complete metabolic panel and CBC) in 2 weeks. - You also have severe, uncontrolled hypothyroidism. We started you on a low dose of Levothyroxine 100mcg. You will need to check your TSH and Free T4 in 1- 2 weeks and your PCP will adjust your dose. - You will need to go home with Oxygen given your low oxygen saturation in the hospital. You can also use the Albuterol inhaler as needed for shortness of breath. You will need to talk to your PCP about starting a nebulizer if your symptoms are not well controlled with the inhaler. - You had pneumonia, possibly both viral and bacterial. You were also found to have an E. coli UTI. You had 7 days of antibiotics and finished the course as of today. No further need for antibiotics at this point. You will need to have a follow-up CXR in 2-3 weeks. - You kidney function improved at discharge, but try to avoid taking any NSAIDs. You were given 90 tablets of Oxycodone 5mg to use as needed for your chronic back pain and peripheral neuropathy. Your PCP might start you on a different pain medication. Please use it sparingly as needed for severe pain. You can take Tylenol for mild-moderate pain. Do not drink alcohol or drive while taking the Oxycodone. - IF you develop any chest pain, SOB, increased swelling, headache, lethargy, nausea, or vomiting, please go to the ER. - You will need to have home health physical therapy and nursing. Follow-up Provider: [facility] Follow-up with PCP in: 1 week Attending Statement The patient was seen and examined together with Dr. Bar on 02-10-17 and I agree with the history, exam and plan as outlined in the note above. copies to: [facility] Daysi Bar DO Feb 10, 2017 12:14 Michael Stephen MD Feb 11, 2017 13:53
--- NOTE | 2017-02-15 05:09 | DRSVH ---
PROCEDURE: X-RAY CHEST ONE VIEW, PORTABLE ([id number]) INDICATIONS: pneumonia TECHNIQUE: One view of the chest was acquired. COMPARISON: , CR, XR CHEST 1VW (PORTABLE), 02/05/2017, 4:09. FINDINGS: Surgical changes and devices: Surgical clips at the thoracic inlet and sternotomy wires are unchanged . Lungs and pleura: Consolidative patchy pulmonary opacities are redemonstrated within the right mid an d lower lung similar in extent to the prior study. Mediastinum: Mediastinal contours appear normal. Heart size is normal. Bones and chest wall: No suspicious bony lesions. Overlying soft tissues appear unremarkable. IMPRESSION: Multifocal pneumonia not significantly changed. Dictated by: Yash Yu RRA Interpreted: Magda Alarcon MD on 02/06/2017 at 10:09 Transcribed by: KERVIN on 02/15/2017 at 5:09 Approved by: Timothy Pool M.D. on 02/16/2017 at 10:09
== END 2017-02-10 14:53 | disposition home health service (06) | DRG 313 ==
LOC: SED 13:29 → EDBD 13:29 → OBSVTOIN 18:19 → MPC 18:19 → PCC 02-03 20:35
PROVIDERS: ADMIT Hospitalist; ATTEND Hospitalist
PROC: 4A033R1 Measurement of Arterial Saturation, Peripheral, Percutaneous Approach (ICD-10-PCS; principal; 2017-02-03)
PROC: 5A09557 Assistance with Respiratory Ventilation, Greater than 96 Consecutive Hours, Continuous Positive Airway Pressure (ICD-10-PCS; 2017-02-03)
DX: R07.9 Chest pain, unspecified (principal); J96.01 Acute respiratory failure with hypoxia; J96.02 Acute respiratory failure with hypercapnia; I50.23 Acute on chronic systolic (congestive) heart failure; J12.3 Human metapneumovirus pneumonia; J15.9 Unspecified bacterial pneumonia; N17.9 Acute kidney failure, unspecified; N39.0 Urinary tract infection, site not specified; Z94.84 Stem cells transplant status; E11.65 Type 2 diabetes mellitus with hyperglycemia; Z91.14 Patient's other noncompliance with medication regimen; I25.5 Ischemic cardiomyopathy; I44.7 Left bundle-branch block, unspecified; Z86.718 Personal history of other venous thrombosis and embolism; E78.5 Hyperlipidemia, unspecified; I34.0 Nonrheumatic mitral (valve) insufficiency; Z85.72 Personal history of non-Hodgkin lymphomas; E83.42 Hypomagnesemia; R11.0 Nausea; Z87.74 Personal history of (corrected) congenital malformations of heart and circulatory system; E89.0 Postprocedural hypothyroidism; I25.10 Atherosclerotic heart disease of native coronary artery without angina pectoris; Y95 Nosocomial condition; B96.20 Unspecified Escherichia coli [E. coli] as the cause of diseases classified elsewhere; Z86.711 Personal history of pulmonary embolism

== ENCOUNTER → 2017-07-17 | Day surgery (SDC) | payer MEDICARE ==
[2017-07-17] VITALS (9 sets, daily range): BP systolic 85–110; BP diastolic 54–71; PULSE 79–96; RESP 14–16; O2SAT 96–99
[~2017-07-17] VITALS: Ht 167.6 cm; Wt 93.0 kg
[~2017-07-17] MED LIST changes: +ALBU8.5H2 INHALATION; +Atropine 0.4 mg/mL Inj IVPUSH PRN; +CITA40TA13 PO; +DULO60CA61 PO; +GLIM2TAB2 PO; +INSLIS SUBQ; +INSU100V7 SUBQ; +LEVO100T6 PO; +LIP40 PO; +Lactated Ringer's 1,000 ML IV ONE; +Lactated Ringer's 1,000 ML IV SCH; +METO25TA99 PO; +MetoCLOpramide 5 mg/mL 2 mL Inj IVPUSH PRN; +Ondansetron 2 mg/mL 2 mL Inj IVPUSH PRN; +Propofol 10,000 mCg/mL 20 mL Inj ONE; +ROPI0.252 PO; +SYRI-233 MC; +fentaNYL-PF 50 mCg/mL 2 mL Inj ONE
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
--- NOTE | 2017-07-17 15:25 | PCM.ANEP1 ---
Post Anesthesia PACU Phase 1 Assessment Vital Signs Vital Signs Date Time Temp Pulse Resp B/P Pulse Ox O2 Delivery O2 Flow Rate FiO2 07/17/17 15:18 89 14 96/59 98 Nasal Cannula 2 07/17/17 15:09 81 14 104/62 99 Nasal Cannula 2 07/17/17 13:24 96 15 110/71 96 Room Air Anesthetic Administered: GA Level of Alertness: Awake, talking [place]'s with Equal Strength: Yes Pain: No Nausea or Vomiting: No CV Function & Hydration Stable: Yes Airway Device: Oxygen Delivery: Nasal Cannula Lungs: Clear to Auscultation, Normal Air Movement PACU Phase 2 Assessment Complications: No Follow up Care: N/A Patient Instructions Provided: N/A Simba Tinsley MD Jul 17, 2017 15:25
--- NOTE | 2017-07-17 21:17 | ENDO ---
[address] [address] ENDOSCOPY PROCEDURE PATIENT: MARZENA METZ : 1955 MR#: [id number] ADMIT: 07/17/2017 JOB ID: [id number] DATE: 07/17/2017 PRIMARY PROVIDER: Arabella Saha DO. PROCEDURE: Esophagogastroduodenoscopy with biopsy and a colonoscopy with hot snare polypectomy and cold forceps polypectomy. INDICATIONS: A 61-year-old female with symptoms of dysphagia, early satiety, some weight loss. She also has a personal history of colon polyps and a lengthy history of right lower quadrant pain relieved by a bowel movement. She denies chronic diarrhea. Both EGD and colonoscopy are therefore pursued. EQUIPMENT: GIF-Q180 and a PCF-H190DL. SEDATION: Monitored anesthesia as provided by Dr. Simba Tinsley. COMPLICATIONS: None identified. BOWEL PREPARATION: Fair, adequate exam. PROCEDURE INFORMATION: After the risks and benefits were explained, written and verbal informed consent was obtained, the patient was brought into the endoscopy suite and placed into the left lateral decubitus position. Sedation was achieved as above. The scope was introduced into the mouth through the bite block and advanced under direct visualization to the second portion the duodenum. The scope was slowly withdrawn to carefully examine the mucosa for any defects or lesions. Retroflexed views were accomplished in the stomach. The stomach was decompressed. The scope removed from the patient who tolerated the procedure well. The patient was then turned around. A digital rectal examination accomplished. Mild internal hemorrhoids noted. The scope was then introduced into the rectum and advanced to the cecum as identified by the appendiceal orifice and ileocecal valve. The terminal ileum was briefly accessed, the scope then slowly withdrawn to carefully examine the mucosa for any defects or lesions. Multiple direct views were made through the dentate line for exclusion of pathology. The colon was decompressed, the scope removed from the patient who tolerated the procedure well. FINDINGS: 1. Duodenum: No pathology appreciated from the bulb through to the second portion. Random biopsies from D2 were taken considering the patient's mild weight loss history. 2. Stomach: The patient had streaky erythema throughout the antrum. Otherwise, mild diffuse gastropathy. Random gastric biopsies from the antrum were acquired for exclusion of Helicobacter or any other underlying histopathology. No ulcers. No mass lesions. Retroflexed views of the LES were unremarkable. 3. Esophagus: The squamocolumnar junction correlated with the top of the gastric folds. The GEJ was at about 42 cm from the incisors. No acute erosive changes. No strictures. No mass lesions. There was some retained food and mucus debris in the esophagus suggestive of an underlying suboptimal motility. I did not see any classic diffuse corrugated appearance that may we sometimes see in eosinophilic infiltration. However, I elected to take a biopsy from mid esophagus to exclude eosinophilic esophagitis. 4. Terminal ileum: This appeared visually normal. 5. There was one diminutive polyp removed with cold forceps. Otherwise, there were four other slightly larger polyps ranging in size from about 5-8 mm each. These were removed with hot snare. All of these were grouped together as "colon polyps." No other significant pathology was appreciated throughout. ENDOSCOPIC DIAGNOSES: 1. Gastropathy. 2. Otherwise visually unremarkable esophagogastroduodenoscopy. 3. Multiple colon polyps. 4. Hemorrhoids. RECOMMENDATIONS: 1. Await histopathology. 2. If Helicobacter is found, it will need to be eradicated with standard triple therapy. 3. If the eosinophilic infiltration is identified within the esophagus then a six-week course of swallowed fluticasone therapy will be indicated. 4. Repeat colonoscopy in three years' time. 5. If there are no pathologic features identified at histology, then the patient should be considered for esophageal manometry. 6. Follow up in GI clinic with Tess Musa. CC: Arabella Saha DO.
--- NOTE | 2017-07-24 16:01 | PATH ---
SURGICAL PATHOLOGY Attending Physician:Annmarie Green CASE STATUS: Signed Out PATIENT NAME: MARZENA METZ PID: [id number] : 1955 DATE COLLECTED:07/17/2017 00:00 SPECIMEN: 1: Duodenum, Biopsy 2: Stomach, Antrum, Biopsy 3: Esophagus, Biopsy 4: Colon, Polyp CLINICAL HISTORY: 1). DUODENAL BIOPSY, RULE OUT H PYLORI 2). ANTRUM BIOPSY, RULE OUT H PYLORI 3). MID ESOPHAGUS BIOPSY 4). COLON POLYPS FINAL DIAGNOSIS: 1. Duodenum, Biopsy: Duodenal mucosa with no diagnostic abnormality. Negative for active inflammation, features of sprue, dysplasia or malignancy. 2. Antrum, Biopsy: Gastric antral mucosa with chronic gastritis and focal intestinal metaplasia. Negative for Helicobacter organisms by immunohistochemistry. Negative for dysplasia or malignancy. 3. Mid Esophagus, Biopsy: Squamous epithelium with no diagnostic abnormality. Intraepithelial eosinophils are not increased. Negative for dysplasia or malignancy. 4. Colon Polyps, Biopsies: Multiple fragments of tubular adenoma. One fragment of hyperplastic polyp. ICD10: R13.10 D12.6 GROSS DESCRIPTION: The specimen is received in four formalin filled containers labeled with the patient's name. 1). The specimen is labeled "duodenal" and consists of a 0.3 x 0.2 x 0.2 CM portion of tissue which is entirely submitted in cassette 1A. 2). The specimen is labeled "antrum" and consists of a 0.3 x 0.3 x 0.2 CM portion of tissue which is entirely submitted in cassette 2A. 3). The specimen is labeled "mid esoph" and consists of a 0.1 x 0.1 x 0.1 CM portion of tissue which is entirely submitted in cassette 3A. 4). The specimen is labeled "colon polyps" and consists of multiple portions of tissue which aggregate to 0.4 x 0.4 x 0.3 CM. The specimen is entirely submitted in cassette 4A. 07/18/2017DC MICRO DESCRIPTION: Part 2: An immunohistochemical stain was performed to evaluate for Helicobacter organisms and is negative. The control stain shows appropriate reactivity. * This test was developed and its performance characteristics determined by [facility]. It has not been cleared or approved by the U.S. Food and Drug Administration. The FDA has determined that such clearance or approval is not necessary. This test is used for clinical purposes. It should not be regarded as investigational or for research. ICD-9 CODES: CPT CODES: 1: 92958 2: 90773, 65658 3: 51044 4: 83791 Electronically Signed Out Kyle Zepeda MD, Ph.D. [facility] Pathology [facility] [address], [place] [address] Technical component performed at [facility], [address], [place], [address]
== END | disposition home or self-care (01) ==
LOC: END 00:22
PROVIDERS: ATTEND Internal Medicine Gastroenterology
DX: Z12.11 Encounter for screening for malignant neoplasm of colon (principal); K63.5 Polyp of colon; D12.6 Benign neoplasm of colon, unspecified; K64.9 Unspecified hemorrhoids; K29.50 Unspecified chronic gastritis without bleeding; R10.31 Right lower quadrant pain; R13.14 Dysphagia, pharyngoesophageal phase; R68.81 Early satiety; Z86.010 Personal history of colon polyps; I10 Essential (primary) hypertension; I50.9 Heart failure, unspecified; E11.42 Type 2 diabetes mellitus with diabetic polyneuropathy; F41.8 Other specified anxiety disorders; G47.33 Obstructive sleep apnea (adult) (pediatric); J45.909 Unspecified asthma, uncomplicated; Z86.711 Personal history of pulmonary embolism; Z85.850 Personal history of malignant neoplasm of thyroid; Z86.73 Personal history of transient ischemic attack (TIA), and cerebral infarction without residual deficits; Z85.72 Personal history of non-Hodgkin lymphomas; Z79.84 Long term (current) use of oral hypoglycemic drugs
CPT/HCPCS: 43239; 45385; J2704; J3010; J7120